=== PATIENT | female | born 1945 | race Caucasian/White ===

== ENCOUNTER 2018-01-17 20:20 | Emergency (ER) | payer MEDICARE ==
[~2018-01-17] VITALS: Ht 152.4 cm; Wt 51.7 kg
[2018-01-17 21:20] LABS: BASO % 1 % (0-3); EOS % 0 % (0-3); HEMATOCRIT 33.1 % (36.0-47.0); HEMOGLOBIN 11.2 g/dL (12.0-15.5); LYMPH # 1.4 x10^3/uL (1.0-4.8); LYMPH % 13 % (24-48); MEAN CORPUSCULAR HEMOGLOBIN 31 pg (25-35); MEAN CORPUSCULAR HGB CONC 34 g/dL (31-37); MEAN CORPUSCULAR VOLUME 90 fL (79-100); MONO # 1.2 x10^3/uL (0.0-1.1); MONO % 12 % (0-9); NEUT # 7.5 x10^3uL (1.8-7.7); NEUT % 74 % (31-73); PLATELET COUNT 413 x10^3/uL (140-400); RED BLOOD COUNT 3.66 x10^6/uL (3.50-5.40); RED CELL DISTRIBUTION WIDTH 17.2 % (11.5-14.5); WHITE BLOOD COUNT 10.1 x10^3/uL (4.0-11.0)
[2018-01-17 21:39] LABS: ALBUMIN 2.3 g/dL (3.4-5.0); ALBUMIN/GLOBULIN RATIO 0.5 (1.0-1.7); CREATININE 1.8 mg/dL (0.6-1.0); GFR 27.7; TOTAL BILIRUBIN 0.2 mg/dL (0.2-1.0); TOTAL PROTEIN 7.2 g/dL (6.4-8.2)
[2018-01-17 21:40] LABS: POTASSIUM 2.8 mmol/L (3.5-5.1)
[2018-01-17 21:44] LABS: BILIRUBIN,URINE NEG (NEG); CLARITY,URINE HAZY; COLOR,URINE STRAW; GLUCOSE,URINE NEG (NEG)
[2018-01-17 21:45] LABS: BACTERIA,URINE FEW /HPF (0-FEW); NITRITE,URINE NEG (NEG); SQUAMOUS EPITHELIAL CELL,UR MANY /LPF; UROBILINOGEN,URINE 0.2 mg/dL (0.2 mg/dL)
[2018-01-17 21:46] LABS: YEAST,URINE PRESENT /HPF
[2018-01-17] MEDS ORDERED: POTASSIUM BICARB 25 MEQ EFFERVESCENT TAB. PO ONE (22:00)
--- NOTE | 2018-01-17 22:16 | ED.ADGEN ---
Adult General Chief Complaint Chief Complaint Generalized weakness, syncope HPI HPI Patient is a 72-year-old female with CAD, CABG, remote stroke and recent hospitalization at [facility] for trauma and construction of left humerus and elbow who presents with generalized and syncope at home. Patient's daughter noted that the patient appeared to be weak and required assistance to stand. Patient was helping the patient standing when patient became limp and briefly unresponsive for less than a minute. No seizure he was witnessed. Patient denies chest pain palpitations shortness of breath preceding weakness and syncopal event. Patient GCS of 15 on EMS arrival. Noted to be hypotensive. IV fluids given. Patient remains weak and fatigued on ED arrival. Reports nauseated and mildly dyspneic. Reports continued post sx left arm pain. No fever chills or sweats. No urinary frequency or urgency. No diarrhea or urinary frequency. Compliant with medications. Patient's orthopaedic surgeon is Dr. Nina. [] Review of Systems Review of Systems ROS as per HPI. All other systems were reviewed and found to be within normal limits, except as documented in this note. Current Medications Current Medications Current Medications Medications (Trade) Dose Ordered Sig/Harish Start Time Stop Time Status Last Admin Dose Admin Potassium Bicarbonate (Klyte/Cl) 50 meq 1X ONCE 01/17/18 22:00 01/17/18 22:01 DC Allergies Allergies Allergies Coded Allergies Type Severity Reaction Last Updated Verified codeine Allergy Unknown 01/17/18 Yes Physical Exam Physical Exam Constitutional: Well developed, generally weak and fatigued appearing. [] HENT: Normocephalic, atraumatic, bilateral external ears normal, oropharynx moist, no oral exudates, nose normal. [] Eyes: PERRL, EOMI. [] Neck: Normal range of motion. [] Cardiovascular:Heart rate regular rhythm, no murmur [] Lungs & Thorax: Bradycardia, bilateral breath sounds clear to auscultation. [] Abdomen: Bowel sounds normal, soft, no tenderness. [] Skin: Old bruising to left torso and legs. [] Back: No CVA tenderness. [] Extremities: Splint and bandage to left upper extremity and dependent edema. [] Neurologic: Alert and oriented X 3, no gross motor deficits. [] Psychologic: Affect flat. [] Current Patient Data Vital Signs Vital Signs Date Time Temp Pulse Resp B/P (MAP) Pulse Ox O2 Delivery O2 Flow Rate FiO2 01/17/18 20:20 97.5 56 18 98 Room Air Lab Results Laboratory Tests Test 01/17/18 20:42 01/17/18 20:58 Urine Collection Type U cath Urine Color Straw Urine Clarity Hazy Urine pH 5.5 Urine Specific [place] 1.025 Urine Protein >100 mg/dl (NEG-TRACE) Urine Glucose (UA) Neg mg/dL (NEG) Urine Ketones (Stick) Trace mg/dL (NEG) Urine Blood Trace (NEG) Urine Nitrite Neg (NEG) Urine Bilirubin Neg (NEG) Urine Urobilinogen Dipstick 0.2 mg/dL (0.2 mg/dL) Urine Leukocyte Esterase Small (NEG) Urine RBC 6-10 /HPF (0-2) Urine WBC 11-20 /HPF (0-4) Urine Squamous Epithelial Cells Many /LPF Urine Bacteria Few /HPF (0-FEW) Urine Mucus Slight /LPF Urine Yeast Present /HPF White Blood Count 10.1 x10^3/uL (4.0-11.0) Red Blood Count 3.66 x10^6/uL (3.50-5.40) Hemoglobin 11.2 g/dL (12.0-15.5) L Hematocrit 33.1 % (36.0-47.0) L Mean Corpuscular Volume 90 fL (79-100) Mean Corpuscular Hemoglobin 31 pg (25-35) Mean Corpuscular Hemoglobin Concent 34 g/dL (31-37) Red Cell Distribution Width 17.2 % (11.5-14.5) H Platelet Count 413 x10^3/uL (140-400) H Neutrophils (%) (Auto) 74 % (31-73) H Lymphocytes (%) (Auto) 13 % (24-48) L Monocytes (%) (Auto) 12 % (0-9) H Eosinophils (%) (Auto) 0 % (0-3) Basophils (%) (Auto) 1 % (0-3) Neutrophils # (Auto) 7.5 x10^3uL (1.8-7.7) Lymphocytes # (Auto) 1.4 x10^3/uL (1.0-4.8) Monocytes # (Auto) 1.2 x10^3/uL (0.0-1.1) H Eosinophils # (Auto) 0.0 x10^3/uL (0.0-0.7) Basophils # (Auto) 0.0 x10^3/uL (0.0-0.2) Sodium Level 133 mmol/L (136-145) L Potassium Level 2.8 mmol/L (3.5-5.1) *L Chloride Level 91 mmol/L (98-107) L Carbon Dioxide Level 31 mmol/L (21-32) Anion Gap 11 (6-14) Blood Urea Nitrogen 30 mg/dL (7-20) H Creatinine 1.8 mg/dL (0.6-1.0) H Estimated GFR (Cockcroft-Gault) 27.7 BUN/Creatinine Ratio 17 (6-20) Glucose Level 135 mg/dL (70-99) H Lactic Acid Level 2.2 mmol/L (0.4-2.0) H Calcium Level 9.0 mg/dL (8.5-10.1) Total Bilirubin 0.2 mg/dL (0.2-1.0) Aspartate Amino Transferase (AST) 52 U/L (15-37) H Alanine Aminotransferase (ALT) 44 U/L (14-59) Alkaline Phosphatase 79 U/L (46-116) Troponin I Quantitative 0.036 ng/mL (0-0.055) GL-Mwh-V-Type Natriuretic Peptide 95614 pg/mL (0-124) H Total Protein 7.2 g/dL (6.4-8.2) Albumin 2.3 g/dL (3.4-5.0) L Albumin/Globulin Ratio 0.5 (1.0-1.7) L Phenytoin (Dilantin) Level 5.0 mcg/mL (10.0-20.0) L Phenytoin Last Dose Date 01/17/18 Phenytoin Last Dose Time 1111 EKG EKG [EKG: Sinus bradycardia, abnormal repolarization LVH pattern, abnormal T wave pattern. QTC 469.] Radiology/Procedures Radiology/Procedures [CXR: no discrete pulmonary edema.] Course & Med Decision Making Course & Med Decision Making Pertinent Labs and Imaging studies reviewed. (See chart for details) [Patient with generalized weakness and witnessed syncopal episode prior to hospital arrival. Reported to be hypotensive per EMS. Patient given fluid bolus and normotensive in the emergency department. Patient afebrile with stable blood pressure throughout ED stay. Sinus bradycardia with findings of LVH with abnormal T wave pattern on EKG. No arrhythmias noted on monitor. Labs, imaging reviewed. Patient's potassium is 2.8. By mouth potassium given. Patient also noted to have elevated BNP with p pulmonary vascular congestion on chest x-ray. Patient appears mildly dyspneic but does not require use of oxygen. Denies chest pain, troponin is negative. Patient has history of CAD but has not had cardiac evaluation or echocardiogram in a number of years per her report. Lactic acid noted be elevated, etiology unclear. Patient does normal white blood cell count and does not appear to be septic. However, she is at risk of infection. Lactic acid related to a potential prior to ED arrival. Gentle fluid bolus given, but more aggressive fluids no given due to concern of worsening CHF. Lactic acid to be repeated during admission. Given patient's recent trauma status and hospitalization at [facility], the patient agrees to transfer to that facility. Potential Abx to discussed with receiving facility. Patient accepted at 22:30 per [facility] hospitalist with Dr. Chloe Garcia as accepting MD. ] Final Impression Final Impression [1. Syncope 2. Generalized Weakness 3. Hypokalemia 3. Pulmonary vascular congestion 4. Status post left humerus reconstruction] Problems: Dragon Disclaimer Dragon Disclaimer This electronic medical record was generated, in whole or in part, using a voice recognition dictation system. SHON HOPSON DO Jan 17, 2018 22:16
[2018-01-17] MEDS ORDERED: POTASSIUM CL 40MEQ IN 0.9%NACL 1,000 ML IV ONE (22:45)
--- NOTE | 2018-01-17 22:46 | EKG ---
[address] [address] Test Date: 2018-01-17 Test Time: 21:59:32 Pat Name: CHARLIE LINARES Department: Room: Gender: F Cath Lab Radiology Technician: NATHAN : 1945 Requested By: SHON HOPSON Order Number: [id number] Reading MD: Adarsh Robertson MD Measurements Intervals [place] Rate: 55 P: -59 NE: 178 QRS: 10 QRSD: 94 T: -92 QT: 488 QTc: 469 Interpretive Statements SR LVH WITH REPOLARIZATION ABNORMALITY Electronically Signed On 01-20-2018 14:14:05 CDT by Adarsh Robertson MD
[2018-01-17 23:46] VITALS: BP 137/51
--- NOTE | 2018-01-18 08:09 | RAD ---
Portable chest, 01/17/2018: History: Cough, congestion Comparison is made to a study from 10/27/2008. There has been a previous median sternotomy. The heart size and pulmonary vascularity are normal. There is calcific plaquing of the aorta. There is a minimal vague opacity projected over lateral aspect of the left upper lobe. There is mild linear scarring or atelectasis in the right lateral costophrenic angle. There is no evidence of pleural fluid. The bony structures are demineralized. There is a surgical plate and screws transfixing a proximal left humeral fracture. An additional surgical plate and screws is incompletely visualized in the distal left humerus. IMPRESSION: Minimal left upper lobe opacity which may represent scarring or focal infiltrate. Radiographic follow-up is suggested
== END 2018-01-17 23:58 | disposition short-term general hospital (02) ==
LOC: ER 20:20
DX: R55 Syncope and collapse (principal); R53.1 Weakness; E87.6 Hypokalemia; R09.89 Other specified symptoms and signs involving the circulatory and respiratory systems; I25.10 Atherosclerotic heart disease of native coronary artery without angina pectoris; Z95.1 Presence of aortocoronary bypass graft; Z86.73 Personal history of transient ischemic attack (TIA), and cerebral infarction without residual deficits; Z88.5 Allergy status to narcotic agent
CPT/HCPCS: 36415; 71045; 80053; 80185; 81001; 83605; 83880; 84443; 84484; 85025; 87040; 87086; 93005; 96365; 99285-25

== ENCOUNTER 2018-02-04 13:43 | Emergency (ER) | payer MEDICARE ==
[~2018-02-04] VITALS: Ht 60 cm; Wt 49.9 kg
[2018-02-04 14:15] LABS: BASO # 0.1 x10^3/uL (0.0-0.2); BASO % 1 % (0-3); EOS # 0.1 x10^3/uL (0.0-0.7); EOS % 1 % (0-3); HEMATOCRIT 35.8 % (36.0-47.0); HEMOGLOBIN 12.2 g/dL (12.0-15.5); LYMPH # 1.5 x10^3/uL (1.0-4.8); LYMPH % 23 % (24-48); MEAN CORPUSCULAR HEMOGLOBIN 30 pg (25-35); MEAN CORPUSCULAR HGB CONC 34 g/dL (31-37); MEAN CORPUSCULAR VOLUME 89 fL (79-100); MONO # 0.5 x10^3/uL (0.0-1.1); MONO % 8 % (0-9); NEUT # 4.4 x10^3uL (1.8-7.7); NEUT % 67 % (31-73); PLATELET COUNT 372 x10^3/uL (140-400); RED BLOOD COUNT 4.03 x10^6/uL (3.50-5.40); RED CELL DISTRIBUTION WIDTH 19.2 % (11.5-14.5); WHITE BLOOD COUNT 6.5 x10^3/uL (4.0-11.0)
[2018-02-04] MEDS ORDERED: IV NORMAL SALINE 1,000ML 1,000 ML IV ONE (14:15)
[2018-02-04 14:34] LABS: CALCIUM 8.6 mg/dL (8.5-10.1); CREATININE 1.9 mg/dL (0.6-1.0)
[2018-02-04 14:35] LABS: POTASSIUM 2.8 mmol/L (3.5-5.1)
--- NOTE | 2018-02-04 15:03 | EKG ---
[address] [address] Test Date: 2018-02-04 Test Time: 13:47:39 Pat Name: CHARLIE LINARES Department: Room: Gender: F C Java Developer: LAURA : 1945 Requested By: REENA SHELTON Order Number: [id number] Reading MD: Measurements Intervals [place] Rate: 58 P: -50 [place]: 172 QRS: 4 QRSD: 92 T: 160 QT: 512 QTc: 507 Interpretive Statements SINUS RHYTHM LVH WITH REPOLARIZATION ABNORMALITY PROLONGED QT ABNORMAL ECG RI6.01 No previous ECG available for comparison
[2018-02-04] MEDS ORDERED: POTASSIUM CHLORIDE 20 MEQ TABLET.ER. PO ONE ×2 (15:05→15:30)
[2018-02-04 15:16] VITALS: BP 181/74
--- NOTE | 2018-02-04 15:25 | EKG ---
[address] [address] Test Date: 2018-02-04 Test Time: 15:20:54 Pat Name: CHARLIE LINARES Department: Room: Gender: F Outreach Coordinator: LAURA : 1945 Requested By: REENA SHELTON Order Number: [id number] Reading MD: Measurements Intervals [place] Rate: 58 P: [place]: QRS: 6 QRSD: 92 T: 177 QT: 450 QTc: 446 Interpretive Statements IRREGULAR RHYTHM, NO P-WAVE FOUND LVH WITH REPOLARIZATION ABNORMALITY ABNORMAL ECG RI6.01 Compared to ECG 01/17/2018 21:59:32 No significant changes
[2018-02-04] MEDS ORDERED: POTA10TA10 PO (15:31)
--- NOTE | 2018-02-04 15:31 | PHYS DOC ---
Past History Past Medical History: Anemia, High Cholesterol, [place], Seizure, Stroke Past Surgical History: Coronary Bypass Surgery Alcohol Use: None Drug Use: None Adult General Chief Complaint Chief Complaint: HYPOTENSION HPI HPI Patient is a 72 year old F who presents with an episode of low blood pressure just prior to arrival. Bertha is accompanied by her who was present during this episode. He states that her blood pressure was in the 90s over 60s. At that time she was extremely pale nauseous and dizzy. She denied pain. She currently has no symptoms. Review of Systems Review of Systems Constitutional: Denies fever or chills [] Eyes: Denies change in visual acuity, redness, or eye pain [] HENT: Denies nasal congestion or sore throat [] Respiratory: Denies cough or shortness of breath [] Cardiovascular: No additional information not addressed in HPI [] GI: Denies abdominal pain, nausea, vomiting, bloody stools or diarrhea [] : Denies dysuria or hematuria [] Musculoskeletal: Denies back pain or joint pain [] Integument: Denies rash or skin lesions [] Neurologic: Denies headache, focal weakness or sensory changes [] Endocrine: Denies polyuria or polydipsia [] All other systems were reviewed and found to be within normal limits, except as documented in this note. Family History Family History No pertinent family medical history was reported Current Medications Current Medications Current Medications Medications (Trade) Dose Ordered Sig/Harish Start Time Stop Time Status Last Admin Dose Admin Potassium Chloride (Klor-Con) 40 meq 1X ONCE 02/04/18 15:30 02/04/18 15:31 02/04/18 15:15 40 MEQ Sodium Chloride 1,000 ml @ 1,000 mls/hr 1X ONCE 02/04/18 14:15 02/04/18 15:14 DC 02/04/18 15:08 1,000 MLS/HR Allergies Allergies Allergies Coded Allergies Type Severity Reaction Last Updated Verified codeine Allergy Unknown 01/17/18 Yes Physical Exam Physical Exam Constitutional: Well developed, well nourished, no acute distress, non-toxic appearance. [] HENT: Normocephalic, atraumatic, Eyes: EOMI, conjunctiva normal, no discharge. [] Neck: Normal range of motion, no tenderness, supple, no stridor. [] Cardiovascular:Heart rate regular rhythm, Lungs & Thorax: Bilateral breath sounds clear to auscultation [] Abdomen: Bowel sounds normal, soft, no tenderness, no masses, no pulsatile masses. [] Skin: Warm, dry, no erythema, no rash. [] Back: No tenderness, no CVA tenderness. [] Extremities: No tenderness, no cyanosis, no clubbing, ROM intact, no edema. [] Neurologic: Alert and oriented X 3, normal motor function, normal sensory function, no focal deficits noted. [] Psychologic: Affect normal, judgement normal, mood normal. [] Current Patient Data Vital Signs Vital Signs Date Time Temp Pulse Resp B/P (MAP) Pulse Ox O2 Delivery O2 Flow Rate FiO2 02/04/18 14:51 97.9 68 20 98 Room Air Lab Results Laboratory Tests Test 02/04/18 13:55 White Blood Count 6.5 x10^3/uL (4.0-11.0) Red Blood Count 4.03 x10^6/uL (3.50-5.40) Hemoglobin 12.2 g/dL (12.0-15.5) Hematocrit 35.8 % (36.0-47.0) L Mean Corpuscular Volume 89 fL (79-100) Mean Corpuscular Hemoglobin 30 pg (25-35) Mean Corpuscular Hemoglobin Concent 34 g/dL (31-37) Red Cell Distribution Width 19.2 % (11.5-14.5) H Platelet Count 372 x10^3/uL (140-400) Neutrophils (%) (Auto) 67 % (31-73) Lymphocytes (%) (Auto) 23 % (24-48) L Monocytes (%) (Auto) 8 % (0-9) Eosinophils (%) (Auto) 1 % (0-3) Basophils (%) (Auto) 1 % (0-3) Neutrophils # (Auto) 4.4 x10^3uL (1.8-7.7) Lymphocytes # (Auto) 1.5 x10^3/uL (1.0-4.8) Monocytes # (Auto) 0.5 x10^3/uL (0.0-1.1) Eosinophils # (Auto) 0.1 x10^3/uL (0.0-0.7) Basophils # (Auto) 0.1 x10^3/uL (0.0-0.2) Sodium Level 132 mmol/L (136-145) L Potassium Level 2.8 mmol/L (3.5-5.1) *L Chloride Level 95 mmol/L (98-107) L Carbon Dioxide Level 31 mmol/L (21-32) Anion Gap 6 (6-14) Blood Urea Nitrogen 27 mg/dL (7-20) H Creatinine 1.9 mg/dL (0.6-1.0) H Estimated GFR (Cockcroft-Gault) 26.0 Glucose Level 153 mg/dL (70-99) H Calcium Level 8.6 mg/dL (8.5-10.1) Creatine Kinase 54 U/L (26-192) Creatine Kinase MB (Mass) 0.8 ng/mL (0.0-3.6) Creatine Kinase MB Relative Index 1.5 % (0-4) Troponin I Quantitative 0.027 ng/mL (0-0.055) EKG EKG No interval change noted Radiology/Procedures Radiology/Procedures [] Course & Med Decision Making Course & Med Decision Making Pertinent Labs and Imaging studies reviewed. (See chart for details) She was given oral potassium prior to discharge. Bertha and her were counseled on the risk of or permanent disability associated with her current medical condition. Hospital admission for further management was recommended and declined. Instead they decided to pursue watchful management and plan to return to the emergency room if she develops new or worsening symptoms. Dragon Disclaimer Dragon Disclaimer This electronic medical record was generated, in whole or in part, using a voice recognition dictation system. Departure Departure: Impression: Primary Impression: Hypokalemia Disposition: 01 HOME, SELF-CARE Condition: STABLE Referrals: MELVINA LOPEZ MD (PCP) Patient Instructions: Hypokalemia Additional Instructions: Bertha was seen in the emergency department for low blood pressure. She was found to have low potassium for which she was given supplementation in the emergency room and a prescription for supplementation. Admission was declined at this time. She was encouraged to return to the emergency room if she develops new or worsening symptoms. She was also encouraged follow-up with her primary care doctor in the next 3-5 days for repeat labs and further evaluation of her potassium. Scripts Potassium Chloride (POTASSIUM CHLORIDE) 10 Meq Tablet.er 10 MEQ PO DAILY for 7 Days, #7 TAB Prov: REENA SHELTON MD 02/04/18 REENA SHELTON MD Feb 04, 2018 15:31
== END 2018-02-04 15:45 | disposition home or self-care (01) ==
LOC: ER 13:43
DX: E87.6 Hypokalemia (principal); E78.00 Pure hypercholesterolemia, unspecified; I25.2 Old myocardial infarction; Z86.2 Personal history of diseases of the blood and blood-forming organs and certain disorders involving the immune mechanism; Z86.73 Personal history of transient ischemic attack (TIA), and cerebral infarction without residual deficits; Z95.1 Presence of aortocoronary bypass graft; Z88.5 Allergy status to narcotic agent
CPT/HCPCS: 36415; 80048; 82553; 84484; 85025; 93005; 99285-25; J7030

== ENCOUNTER 2018-03-31 11:35 | Inpatient (IN) | payer MEDICARE ==
[~2018-03-31] VITALS: Ht 152.4 cm; Wt 47.2 kg
[~2018-03-31 11:35] MED LIST: POTA10TA10 PO
--- NOTE | 2018-03-31 12:05 | PHYS DOC ---
Past History Past Medical History: Anemia, High Cholesterol, [place], Seizure, Stroke Past Surgical History: Coronary Bypass Surgery Alcohol Use: None Drug Use: None Adult General Chief Complaint Chief Complaint: HYPERTENSION HPI HPI Patient is a pleasant 72-year-old female who presents with son-in-law and for evaluation of hypertension which is uncontrolled. The patient has a history of CABG, stroke, seizure disorder, recent surgeries to the upper extremities secondary to a fall, and recent difficulty controlling her blood pressure. She has been admitted several times to [facility] recently. For about 20 years the patient took atenolol for her blood pressure but recently it was causing her blood pressure to be too low so 2 days ago she was changed to amlodipine and since that time her blood pressures have been very elevated. Upon arrival her blood pressure is 243/127. The patient is alert and oriented 4, calm, and appears to be in no distress. She has absolutely no complaints this time. However, earlier today when the patient was getting physical therapy she told her son-in-law that she was not feeling well. She denies this currently. For me she specifically denies headache, vision changes, neck pain, chest pain or shortness of breath, back pain, abdominal pain, focal weakness or numbness, fevers or chills, nausea or vomiting. Per family she has been having some diarrhea recently. She currently takes Eliquis. Her speech is somewhat slow and abnormal with occasional stuttering which is normal and at baseline per family. Review of Systems Review of Systems Constitutional: Denies fever or chills [] Eyes: Denies change in visual acuity, redness, or eye pain [] HENT: Denies nasal congestion or sore throat [] Respiratory: Denies cough or shortness of breath [] Cardiovascular: No additional information not addressed in HPI [] GI: Denies abdominal pain, nausea, vomiting, bloody stools [] occasional diarrhea : Denies dysuria or hematuria [] Musculoskeletal: Denies back pain or joint pain [] Integument: Denies rash or skin lesions [] Neurologic: Denies headache, focal weakness or sensory changes [] Endocrine: Denies polyuria or polydipsia [] All other systems were reviewed and found to be within normal limits, except as documented in this note. Allergies Allergies Allergies Coded Allergies Type Severity Reaction Last Updated Verified codeine Allergy Unknown 01/17/18 Yes Physical Exam Physical Exam Constitutional: Well developed, well nourished, no acute distress, non-toxic appearance. [] calm, appers comfortable HENT: Normocephalic, atraumatic, bilateral external ears normal, oropharynx moist, no oral exudates, nose normal. [] Eyes: PERRLA, EOMI, conjunctiva normal, no discharge. [] Neck: Normal range of motion, no tenderness, supple, no stridor. [] Cardiovascular:Heart rate regular rhythm, no murmur [] Lungs & Thorax: Bilateral breath sounds clear to auscultation [] Abdomen: Bowel sounds normal, soft, no tenderness, no masses, no pulsatile masses. [] Skin: Warm, dry, no erythema, no rash. [] Back: No tenderness, no CVA tenderness. [] Extremities: No tenderness, no cyanosis, no clubbing, ROM intact, no edema. [] Neurologic: Alert and oriented X 3, normal motor function, normal sensory function, no focal deficits noted. [] speech slow with some stuttering ( baseline per family) Psychologic: Affect normal, judgement normal, mood normal. [] Current Patient Data Vital Signs Vital Signs Date Time Temp Pulse Resp B/P (MAP) Pulse Ox O2 Delivery O2 Flow Rate FiO2 03/31/18 11:54 87 18 254/127 (233) 97 Room Air EKG EKG Normal sinus rhythm, rate of 84, normal axis, no acute ischemic findings, no STEMI, reviewed and interpreted by myself Radiology/Procedures Radiology/Procedures [address] [address] IMAGING REPORT Signed PATIENT: CHARLIE LINARES ACCOUNT: [id number] : 1945 LOCATION: ER AGE: 72 SEX: F EXAM STATUS: REG ER ORD. PHYSICIAN: BISHOP LANE DO REASON: dizzy, hypertensive urgency, on Eliquis PROCEDURE: CT HEAD WO CONTRAST CT HEAD INDICATION: HYPERTENSION, dizziness COMPARISON: None Available. TECHNIQUE: 5 mm contiguous axial images were obtained from the skull base to the vertex Exposure: One or more of the following individualized dose reduction techniques were utilized for this examination: 1. Automated exposure control 2. Adjustment of the mA and/or kV according to patient size 3. Use of iterative reconstruction technique FINDINGS: Large area of hypodensity identified in the left frontal region likely encephalomalacia from old infarct No evidence of acute intracranial hemorrhage. No extra-axial fluid collections. No mass effect or midline shift. Ventricular size is appropriate. Basal cisterns are patent. No fractures identified.Christopher-white differentiation is preserved.Globes and orbits are within normal limits. Paranasal sinuses and mastoid air cells are clear. IMPRESSION: Large area of hypodensity identified in the left frontal lobe likely encephalomalacia from old infarct. Otherwise no acute intracranial findings. Electronically signed by: Surya Ferguson MD (03/31/2018 12:16 PM) [id number] DICTATED AND SIGNED BY: SURYA FERGUSON MD DATE: 03/31/18 1213 CC: BISHOP LANE DO; CRISTOBAL MARTINEZ MD ~ [place] [address] IMAGING REPORT Signed PATIENT: CHARLIE ILNARES ACCOUNT: [id number] : 1945 LOCATION: ER AGE: 72 SEX: F EXAM STATUS: REG ER ORD. PHYSICIAN: BISHOP LANE DO REASON: severe hypertension PROCEDURE: PORTABLE CHEST 1V EXAM: CHEST 1 VIEW History: Hypertension, chest COMPARISON: 01/17/2018 TECHNIQUE: Single portable radiograph of the chest FINDINGS: The cardiac silhouette is unremarkable. Calcified granuloma identified in the left upper lobe of the lung. The costophrenic sulci are clear and well demarcated. A heart monitor projects over the left chest region. IMPRESSION: No radiographic evidence of an acute cardiopulmonary process. Electronically signed by: Surya Ferguson MD (03/31/2018 12:13 PM) [id number] DICTATED AND SIGNED BY: SURYA FERGUSON MD DATE: 03/31/18 1209 CC: BISHOP LANE DO; CRISTOBAL MARTINEZ MD ~ Course & Med Decision Making Course & Med Decision Making Pertinent Labs and Imaging studies reviewed. (See chart for details) @1315 - Patient and family updated on lab and imaging results. She does have an elevated BNP which is likely secondary to uncontrolled hypertension. Additionally she has some renal insufficiency and hypokalemia. I see no reason to transfer this patient to another hospital at this time as we should be able to provide care for her here. Family is okay with the plan to admit the patient here to [facility]. Discussed the case with the hospitalist, Dr. Torres, and he agrees and accepts the patient to a full telemetry admission. Dragon Disclaimer Dragon Disclaimer This electronic medical record was generated, in whole or in part, using a voice recognition dictation system. Departure Departure: Impression: Primary Impression: Elevated brain natriuretic peptide (BNP) level Additional Impressions: Hypertensive urgency Hypokalemia Disposition: ADMITTED INPATIENT Admitting Physician: Ciaran Torres Condition: STABLE Referrals: CRISTOBAL MARTINEZ MD (PCP) Problem Qualifiers BISHOP LANE DO Mar 31, 2018 12:05
[2018-03-31 12:13] LABS: BASO % 0 % (0-3); EOS % 1 % (0-3); HEMATOCRIT 41.6 % (36.0-47.0); HEMOGLOBIN 14.4 g/dL (12.0-15.5); LYMPH % 17 % (24-48); MEAN CORPUSCULAR HEMOGLOBIN 31 pg (25-35); MEAN CORPUSCULAR HGB CONC 35 g/dL (31-37); MEAN CORPUSCULAR VOLUME 89 fL (79-100); MONO # 0.8 x10^3/uL (0.0-1.1); MONO % 13 % (0-9); NEUT # 4.2 x10^3uL (1.8-7.7); NEUT % 70 % (31-73); PLATELET COUNT 331 x10^3/uL (140-400); RED BLOOD COUNT 4.68 x10^6/uL (3.50-5.40); RED CELL DISTRIBUTION WIDTH 16.1 % (11.5-14.5)
--- NOTE | 2018-03-31 12:17 | RAD ---
EXAM: CHEST 1 VIEW History: Hypertension, chest COMPARISON: 01/17/2018 TECHNIQUE: Single portable radiograph of the chest FINDINGS: The cardiac silhouette is unremarkable. Calcified granuloma identified in the left upper lobe of the lung. The costophrenic sulci are clear and well demarcated. A heart monitor projects over the left chest region. IMPRESSION: No radiographic evidence of an acute cardiopulmonary process. Electronically signed by: Surya Ferguson MD (03/31/2018 12:13 PM) [id number]
--- NOTE | 2018-03-31 12:20 | RAD ---
CT HEAD INDICATION: HYPERTENSION, dizziness COMPARISON: None Available. TECHNIQUE: 5 mm contiguous axial images were obtained from the skull base to the vertex Exposure: One or more of the following individualized dose reduction techniques were utilized for this examination: 1. Automated exposure control 2. Adjustment of the mA and/or kV according to patient size 3. Use of iterative reconstruction technique FINDINGS: Large area of hypodensity identified in the left frontal region likely encephalomalacia from old infarct No evidence of acute intracranial hemorrhage. No extra-axial fluid collections. No mass effect or midline shift. Ventricular size is appropriate. Basal cisterns are patent. No fractures identified.Christopher-white differentiation is preserved.Globes and orbits are within normal limits. Paranasal sinuses and mastoid air cells are clear. IMPRESSION: Large area of hypodensity identified in the left frontal lobe likely encephalomalacia from old infarct. Otherwise no acute intracranial findings. Electronically signed by: Surya Ferguson MD (03/31/2018 12:16 PM) [id number]
[2018-03-31 12:22] LABS: PHENY 13.3 mcg/mL (10.0-20.0)
[2018-03-31] MEDS ORDERED: LABETALOL 20 MG/4 ML DISP.SYRIN. IVP ONE (12:30)
[2018-03-31 12:34] LABS: ALBUMIN 2.9 g/dL (3.4-5.0); ALBUMIN/GLOBULIN RATIO 0.5 (1.0-1.7); CALCIUM 9.4 mg/dL (8.5-10.1); CREATININE 1.5 mg/dL (0.6-1.0); GFR 34.1; POTASSIUM 3.3 mmol/L (3.5-5.1); TOTAL BILIRUBIN 0.2 mg/dL (0.2-1.0); TOTAL PROTEIN 8.2 g/dL (6.4-8.2)
[2018-03-31] MEDS ORDERED: POTASSIUM CHLORIDE 20 MEQ TABLET.ER. PO ONE (13:30)
[2018-03-31] MEDS ORDERED: FUROSEMIDE 40 MG/4 ML VIAL IVP ONE (13:30)
[2018-03-31 13:49] LABS: BILIRUBIN,URINE NEG (NEG); CLARITY,URINE CLEAR; COLOR,URINE YELLOW; GLUCOSE,URINE NEG (NEG); NITRITE,URINE NEG (NEG); UROBILINOGEN,URINE 0.2 mg/dL (0.2 mg/dL)
[2018-03-31 13:50] LABS: BACTERIA,URINE FEW /HPF (0-FEW); GRANULAR CASTS,URINE OCC /HPF; HYALINE CASTS, URINE OCC /HPF; SQUAMOUS EPITHELIAL CELL,UR FEW /LPF
[2018-03-31 14:53] VITALS: BP 207/77
--- NOTE | 2018-03-31 15:28 | EKG ---
[address] [address] Test Date: 2018-03-31 Test Time: 12:12:28 Pat Name: CHARLIE LINARES Department: Room: 122 A Gender: F Cement Paver: : 1945 Requested By: BISHOP LANE Order Number: [id number] Reading MD: Adarsh Robertson MD Measurements Intervals [place] Rate: 84 P: -142 NM: 154 QRS: 170 QRSD: 92 T: 17 QT: 384 QTc: 457 Interpretive Statements SUPRAVENTRICULAR RHYTHM LVH WITH REPOLARIZATION ABNORMALITY LIMB LEAD REVERSAL CANNOT RULE OUT LATERAL ISCHEMIA Electronically Signed On 03-31-2018 17:12:45 CDT by Adarsh Robertson MD
[2018-03-31 15:44] VITALS: BP 145/97
--- NOTE | 2018-03-31 16:41 | HP ---
ADMIT DATE: 03/31/2018 NO DICTATION JAMILA WOOD MD DR: EVELIN/rj JOB#: [id number] / [id number]
--- NOTE | 2018-03-31 17:24 | HP ---
ADMIT DATE: 03/31/2018 HISTORY OF PRESENT ILLNESS: The patient is a 72-year-old female patient who was brought to the Emergency Room complaining that she is not feeling well. She apparently was on atenolol for about 20 years, but recently it was causing her blood pressure to be low and so about 2 days ago, her petroleum refinery laborer discontinued that and her primary care physician started her on amlodipine 5 mg once a day. Since that time, her blood pressure has been very elevated. In fact, when she arrived to the Emergency Room, her blood pressure was 243/127. However, she was alert, oriented x 4, calm and appears to be in no distress and she has absolutely no complaint. However, early today when the patient was getting physical therapy, she told her son-in-law that she was not feeling well. She denied this currently. She has some form of aphasia secondary to previous stroke, but denied any other complaint and was admitted for hypertensive urgency as well as hypokalemia. PAST MEDICAL HISTORY: Significant for hypertension, hyperlipidemia, coronary artery disease status post CABG x 3 in 1993. She is known to have chronic kidney disease and hypothyroidism. She has left middle cerebral artery territory infarct with right-sided hemiplegia. Her left carotid artery is totally occluded. She underwent right carotid endarterectomy with resultant left-sided vision loss. She has seizure disorder. PAST SURGICAL HISTORY: Significant for right carotid endarterectomy, coronary artery bypass graft surgery, parathyroidectomy, total abdominal hysterectomy, and bilateral salpingo-oophorectomy, esophagogastroduodenoscopy, colonoscopy, left shoulder surgery, and left elbow surgery. ALLERGIES: She is allergic to CODEINE. MEDICATIONS: She is currently on following medications: She is currently on 81 mg of aspirin once a day, atorvastatin 80 mg at bedtime, vitamin D 1000 International Unit once a day, fish oil 1000 mg once a day. She is also on 100 mcg of fludrocortisone once a day, levothyroxine 175 mcg once a day, multivitamin 1 tablet once a day, paroxetine for Paxil 20 mg once a day, phenytoin 100 mg she takes 3 times 3 capsules daily, potassium 20 mEq 3 times daily, metronidazole 500 mg 3 times a day, Eliquis 2.5 mg twice a day, 5 mg amlodipine once a day, and 40 mg omeprazole twice a day. She used to be on atenolol 25 mg once a day that was stopped recently. FAMILY HISTORY: One brother at the age of 70. She has 2 sisters younger and healthy. Her father at the age of 42 because of myocardial infarction. Mother from brain cancer at the age of 70. SOCIAL HISTORY: She is and has 1 daughter. She quit smoking on 12/20/2017. She does not drink alcohol. She used to work at the [employer]. REVIEW OF SYSTEMS: The patient denied any blurring of vision, cataract, glaucoma or macular degeneration. Denied any earache, tinnitus, or sensorineural deafness. Denied any nosebleeds, stuffy nose, or postnasal drip. Denied any sore throat, sore tongue, toothache, hoarseness of voice, or difficulty swallowing. She denied any nausea or vomiting. She did complain of diarrhea for the last 2 weeks, but denied any constipation. Denied any hematemesis, melena, or hematochezia. Denied any dysuria, frequency, or hematuria. Denied any chest pain, shortness of breath, orthopnea, paroxysmal nocturnal dyspnea. Denied any cough, phlegm, or hemoptysis. Denied any chills, rigors, or fever. Denied any dizziness, lightheadedness, or vertigo. PHYSICAL EXAMINATION: GENERAL: When I examined her this afternoon, she was resting slightly propped up in bed, in no apparent respiratory distress. No pallor, jaundice, or cyanosis. No lymphadenopathy, no thyromegaly, no jugular venous distension. No lower limb edema. VITAL SIGNS: On arrival to the Emergency Room, her blood pressure was 243/127. The patient did receive labetalol 20 mg IV once together with potassium and furosemide and by the time I saw her in the afternoon, her blood pressure was down to 145/97, heart rate was 83, temperature was 97.8, respiratory rate was 18, and oxygen saturation was 97% on room air. HEAD, EYES, EARS, NOSE, AND THROAT: Showed normocephalic, atraumatic. NECK: Supple. HEART: Showed normal first and second heart sounds with no gallop, rub, or murmur. CHEST: Clear to auscultation. No crepitation or rhonchi. ABDOMEN: Distended, soft, nontender. No guarding or rigidity. No organomegaly. Hernial orifice intact. Bowel sounds normal. NEUROLOGIC: She is awake, alert, responding appropriately. She does have nominal aphasia; however, she apparently is able to ambulate without assistance or assistive devices. LABORATORY DATA: Her lab work showed a white cell count of 6000, hemoglobin 14.4, hematocrit 41, MCV 89, and platelet count of 331,000. Her serum sodium was 137, potassium 3.3, chloride 99, bicarbonate 27, anion gap of 11, BUN 23, creatinine 1.5, estimated GFR was 34 mL per minute. Her glucose was 106, calcium was 9.4. Total bilirubin, AST, ALT, alkaline phosphatase were normal. Her first set of cardiac enzyme was less than 0.017. Her B-type natriuretic peptide was 4428. Total protein was 8.2, albumin was 2.9. Urinalysis showed the urine was yellow, clear with a pH of 7, specific gravity of 1.020. There was moderate amount of protein, negative for glucose, ketones, blood, nitrite, and leukocyte esterase. There were only 3-5 rbc's, 1-4 wbc's, very few bacteria. Her toxic screen showed the phenytoin to be 13.3 mcg/mL, which is well within therapeutic range of 10-20. Her chest x-ray showed the cardiac silhouette is unremarkable. Calcified granuloma identified in the left upper lobe of the lung. The costophrenic sulci are clear and well demarcated a clear heart monitor projects over the left chest region. CT scan of the head showed that the patient has large area of hyperdensity identified in the left frontal region, likely encephalomalacia from old infarct. No evidence of acute intracranial hemorrhage. No extraaxial fluid collection. No mass effect or midline shift. Ventricular size appropriate. Basilar cisterns are patent. No fracture identified. The johnson-white differentiation is preserved. Globes and orbits are within normal limits. Paranasal sinuses and mastoid air cells are clear. ASSESSMENT AND PLAN: So the patient came in with hypertensive urgency. I will reconcile all her medication. I will hold her fludrocortisone. I am not really sure why she is on that. She probably has some form of autonomic neuropathy, but I do not know whether we need to cut down the fludrocortisone perhaps to 50 mcg instead of 100 and we will reconcile all her medications. I will probably hold the fludrocortisone and consult the cardiology team from [facility]. The patient has already had 2 sets of cardiac enzymes that ruled out myocardial infarction. JAMILA WOOD MD DR: EVELIN/rj JOB#: [id number] / [id number]
[2018-03-31] MEDS ORDERED: FISH12002 PO (17:46)
[2018-03-31] MEDS ORDERED: ATOR80TA72 PO (17:46)
[2018-03-31] MEDS ORDERED: OMEP40CA5 PO (17:46)
[2018-03-31] MEDS ORDERED: AMLO5TAB2 PO (17:46)
[2018-03-31] MEDS ORDERED: PARO20TA3 PO (17:46)
[2018-03-31] MEDS ORDERED: METR500T8 PO (17:46)
[2018-03-31] MEDS ORDERED: FLUD0.1T PO (17:46)
[2018-03-31] MEDS ORDERED: LEVO175T5 PO (17:46)
[2018-03-31] MEDS ORDERED: CHOL100013 PO (17:46)
[2018-03-31] MEDS ORDERED: POTA20TA84 PO (17:46)
[2018-03-31] MEDS ORDERED: PHEN100C4 PO (17:46)
[2018-03-31] MEDS ORDERED: MULT-245 PO (17:46)
[2018-03-31] MEDS ORDERED: APIX5TAB3 PO (17:46)
[2018-03-31] MEDS ORDERED: ASPI-630 PO (17:46)
[2018-03-31 19:32] VITALS: BP 189/84
[2018-03-31] MEDS: POTASSIUM CHLORIDE 20 MEQ TABLET.ER. PO SCH (20:25)
[2018-03-31] MEDS: LACTOBACILLUS RHAMNOSUS GG 1 CAPSULE. PO SCH (20:25)
[2018-03-31] MEDS: ATORVASTATIN CALCIUM 20 MG TABLET PO SCH (20:25)
[2018-03-31] MEDS: metroNIDAZOLE 500 MG TABLET PO SCH (20:25)
[2018-03-31] MEDS: APIXABAN 2.5 MG TABLET PO SCH (20:25)
[2018-03-31 22:01] VITALS: BP 229/110
[2018-03-31] MEDS ORDERED: ACETAMINOPHEN 325 MG TABLET PO PRN (22:30)
[2018-03-31] MEDS ORDERED: amLODIPine BESYLATE 5 MG TABLET PO ONE (23:00)
[2018-03-31 23:45] VITALS: BP 240/103
[2018-04-01] VITALS (9 sets, daily range): BP systolic 171–228; BP diastolic 90–120
[2018-04-01] MEDS: PANTOPRAZOLE 40 MG TABLET. PO SCH (07:44)
[2018-04-01] MEDS: LEVOTHYROXINE 175 MCG TABLET PO SCH (07:44)
[2018-04-01 07:54] LABS: BASO % 0 % (0-3); EOS % 0 % (0-3); HEMATOCRIT 40.7 % (36.0-47.0); HEMOGLOBIN 14.3 g/dL (12.0-15.5); LYMPH # 0.8 x10^3/uL (1.0-4.8); LYMPH % 10 % (24-48); MEAN CORPUSCULAR HEMOGLOBIN 31 pg (25-35); MEAN CORPUSCULAR HGB CONC 35 g/dL (31-37); MEAN CORPUSCULAR VOLUME 87 fL (79-100); MONO # 0.7 x10^3/uL (0.0-1.1); MONO % 8 % (0-9); NEUT # 6.4 x10^3uL (1.8-7.7); NEUT % 81 % (31-73); PLATELET COUNT 333 x10^3/uL (140-400); RED BLOOD COUNT 4.67 x10^6/uL (3.50-5.40); RED CELL DISTRIBUTION WIDTH 16.6 % (11.5-14.5); WHITE BLOOD COUNT 7.9 x10^3/uL (4.0-11.0)
[2018-04-01 08:06] LABS: ALBUMIN 2.6 g/dL (3.4-5.0); ALBUMIN/GLOBULIN RATIO 0.5 (1.0-1.7); CALCIUM 9.4 mg/dL (8.5-10.1); CREATININE 1.5 mg/dL (0.6-1.0); GFR 34.1; TOTAL BILIRUBIN 0.2 mg/dL (0.2-1.0); TOTAL PROTEIN 7.7 g/dL (6.4-8.2)
[2018-04-01 08:13] LABS: POTASSIUM 2.9 mmol/L (3.5-5.1)
[2018-04-01] MEDS ORDERED: cloNIDine HCL 0.1 MG TABLET PO ONE (08:30)
[2018-04-01] MEDS: CHOLECALCIFEROL (VITAMIN D3) 1,000 UNIT TABLET PO SCH (08:43)
[2018-04-01] MEDS: OMEGA-3 FATTY ACIDS/FISH OIL 1,000 MG CAPSULE. PO SCH (08:43)
[2018-04-01] MEDS: PARoxetine 20 MG TABLET PO SCH (08:44)
[2018-04-01] MEDS: ASPIRIN 81 MG TAB.CHEW PO SCH (08:44)
[2018-04-01] MEDS: POTASSIUM CHLORIDE 20 MEQ TABLET.ER. PO SCH ×4 (08:44→22:33)
[2018-04-01] MEDS: MULTIVITAMIN with MINERAL TABLET. PO SCH (08:44)
[2018-04-01] MEDS: APIXABAN 2.5 MG TABLET PO SCH ×3 (08:44→22:53)
[2018-04-01] MEDS: LACTOBACILLUS RHAMNOSUS GG 1 CAPSULE. PO SCH ×2 (08:45→21:00)
[2018-04-01] MEDS: metroNIDAZOLE 500 MG TABLET PO SCH ×4 (08:45→22:53)
[2018-04-01] MEDS ORDERED: cloNIDine HCL 0.1 MG TABLET PO PRN (09:00)
[2018-04-01] MEDS ORDERED: amLODIPine BESYLATE 10 MG TABLET PO ONE (11:00)
[2018-04-01] MEDS ORDERED: CARVEDILOL 3.125 MG TABLET PO SCH (12:00)
[2018-04-01] MEDS: POTASSIUM CHLORIDE 20 MEQ/15 ML ORAL LIQUID. FT SCH ×2 (12:09→15:07)
--- NOTE | 2018-04-01 13:20 | PDOC2 ---
ISA PRESTON BATHHOUSE ATTENDANT 04/01/18 1320: CONSULT Date of Admission DATE: 04/01/18 TIME: 13:06 Reason for Consult: Hypertension Problem List Problems Medical Problems: (1) Elevated brain natriuretic peptide (BNP) level Status: Acute (2) Hypertensive urgency Status: Acute (3) Hypokalemia Status: Acute History of Present Illness This is a pleasant 72-year-old female who presented to the emergency room with hypertension. She has a past medical history of coronary disease s/p coronary bypass surgery, paroxysmal atrial fibrillation, massive stroke back in the with residual deficits, chronically occluded left internal carotid artery as well as severe stenosis involving the right internal carotid artery that was treated with endarterectomy. The patient does have underlying essential hypertension, mixed hyperlipidemia, seizure disorder, and chronic kidney disease. she has been suffering with frequent diarrhea the last 1 month. Her blood pressure had gotten very low and she was taken off her long-term atenolol. Two days ago she went in to see her primary care doctor and was started on amlodipine after they found her blood pressure to be elevated. When her home health nurse came in her blood pressure continued to be extremely high and yesterday her systolic was greater than 200 so they sent her into the emergency room. She reports that she does have a headache the last 12 hr. It is starting to get better now. She has had some shortness of breath that is her baseline. She denies any chest pain, pressure or tightness. She has not had any syncope but has been very weak and tired of late. Allergies CODEINE Medications Aspir-81once a day Amlodipine 5 mg once daily atorvastatin 80 mg tabletTake 1 tablet(s) every day by oral route ergocalciferol (vitamin D2) 50,000 unit capsuleTake 1 capsule(s) every week by oral route. Fish Oil 1,000 mg (120 mg-180 mg) capsuleTake 1 capsule(s) every day by oral route fludrocortisone 0.1 mg tabletTake 1 tablet(s) every day by oral route for 30 days. levothyroxine 175 mcg tabletTake 1 tablet(s) every day by oral route for 90 days. metroNIDAZOLE 500 mg tabletTake 1 tablet(s) 3 times a day by oral route for 10 days. pantoprazole 40 mg tablet,delayed releaseTake 1 tablet(s) twice a day by oral route for 30 days. PARoxetine 20 mg tabletTake 1 tablet(s) every day by oral route for 90 days. phenytoin sodium extended 100 mg capsuleTake 3 capsule(s) every day by oral route potassium chloride ER 20 mEq tablet,extended release(part/cryst) Eliquis 2.5 mg twice a day Family History Father - Diffuse disease of coronary artery Mother - Diffuse disease of coronary artery - Malignant neoplasm of brain Social History Occupation: retired Marital status: Diet: Regular Exercise level: None Smoking Status: Former smoker Smoker (1 PPW) Tobacco-years of use: 50 Alcohol intake: None Caffeine intake: Occasional Surgical History CABG Hysterectomy Thromboendartectomy neck Past Medical History Atrial Fibrillation: Y Carotid Disease: Y High Cholesterol: Y Hypertension: Y Chronic Kidney Disease: Y Hyperthyroidism: Y Hypothyroidism: Y TIA/Stroke: Y ROS Review of 10 organ systems is negative except for as in HPI. Physical Exam Patient is a 72-year-old female. Constitutional: General Appearance: well-nourished and appears stated age. Level of Distress: comfortable. Psychiatric: Mental Status: alert and normal affect. Orientation: oriented to time, place, and person. Eyes: Lids and Conjunctivae: anicteric and no discharge. Pupils: PERRLA. ENMT: Ears: no lesions on external ear. Nose: no lesions on external nose. Oropharynx: no cyanosis or pallor. Neck: Neck: supple and no masses. Carotid Arteries: no bruits or thrills and bilateral normal upstroke. Jugular Veins: normal jugular venous pressure. Cervical Lymph Nodes: non tender or not enlarged. Thyroid: not enlarged or non tender. Lungs: Respiratory Effort: unlabored. Chest Exam: no chest wall tenderness. Auscultation: no wheezing or rhonchi and clear. Cardiovascular: Precordial Exam: non displaced focal PMI. Rate And Rhythm: regular. Heart Sounds: no rub, gallop, or click and normal S1 and physiologically split S2. Extremities: no cyanosis or edema. Peripheral Pulses: Pulses: full and equal in all extremities except if noted. Radial Pulse: normal. Femoral Pulse: normal. Abdomen: Inspection and Palpation: non distended or tender, no bruit or masses, and soft. Neurologic: Neurological: Grossly intact with no focal deficits. Skin: Inspection and Palpation: warm and dry. Procedure: LEXISCAN NUCLEAR STRESS TEST IMPRESSION (03/11/2018): No scinitigraphic evidence of inducible myocardial ischemia. Left ventricular size and global wall motion appear normal. Elelectrocardiographic findings are within normal limits. LVEF is Normal. Assessment / Plan Essential hypertension-at this point she is uncontrolled. We will increase her amlodipine to 10 mg daily and start her on low dose Coreg. agree with stopping Florinef. Hypokalemia -plan to start electrolyte replacement protocol. Coronary arteriosclerosis in aug[place]ine artery S/p coronary artery bypass grafting - At this point she is asymptomatic. Will continue medical therapy. Atrial fibrillation, paroxysmal. She currently is in sinus rhythm. Her [id number] score is elevated at 7 and she is taking Eliquis for anticoagulation. Mixed hyperlipidemia- continue current medications. History of cerebrovascular accident Carotid artery stenosis status post carotid endarterectomy Chronic kidney disease stage 3 - Stable with a GFR of 34. continue to follow Current Medications Current Medications Labetalol HCl (Normodyne) 20 mg 1X ONCE IVP Last administered on 03/31/18at 12: 24; Start 03/31/18 at 12:30; Stop 03/31/18 at 12:31; Status DC Potassium Chloride (Klor-Con) 40 meq 1X ONCE PO Last administered on at 13:11; Start 03/31/18 at 13:30; Stop 03/31/18 at 13:31; Status DC Furosemide (Lasix) 40 mg 1X ONCE IVP Last administered on 03/31/18at 13:10; Start 03/31/18 at 13:30; Stop 03/31/18 at 13:31; Status DC Levothyroxine Sodium (Synthroid) 175 mcg DAILYAC PO Last administered on at 07:44; Start 04/01/18 at 07:30 Amlodipine Besylate (Norvasc) 5 mg DAILYBFRSUP PO ; Start 04/01/18 at 17:00 Apixaban (Eliquis) 2.5 mg BID PO Last administered on 04/01/18at 08:44; Start at 21:00 Aspirin (Children'S Aspirin) 81 mg DAILYWBKFT PO Last administered on at 08:44; Start 04/01/18 at 08:00 Atorvastatin Calcium (Lipitor) 80 mg QHS PO Last administered on 03/31/18at 20: 25; Start 03/31/18 at 21:00 Vitamin D (Vitamin D3) 1,000 unit DAILY PO Last administered on 04/01/18at 08:43 ; Start 04/01/18 at 09:00 Fish Oil (Fish Oil) 1,000 mg DAILY PO Last administered on 04/01/18at 08:43; Start 04/01/18 at 09:00 Metronidazole (Flagyl) 500 mg TID PO Last administered on 04/01/18at 08:45; Start 03/31/18 at 21:00; Stop 04/04/18 at 20:59 Multivitamins/ Calcium (Thera-M Plus) 1 tab DAILY PO Last administered on at 08:44; Start 04/01/18 at 09:00 Pantoprazole Sodium (Protonix) 40 mg DAILYAC PO Last administered on 04/01/18at 07:44; Start 04/01/18 at 07:30 Paroxetine HCl (Paxil) 20 mg DAILY PO Last administered on 04/01/18at 08:44; Start 04/01/18 at 09:00 Phenytoin Sodium (Dilantin) 300 mg DAILYBFRSUP PO ; Start 04/01/18 at 17:00 Potassium Chloride (Klor-Con) 20 meq TID PO Last administered on 04/01/18at 08: 44; Start 03/31/18 at 21:00 Lactobacillus Rhamnosus (Culturelle) 1 cap BID PO Last administered on at 08:45; Start 03/31/18 at 21:00 Amlodipine Besylate (Norvasc) 10 mg 1X ONCE PO Last administered on 03/31/18at 22:33; Start 03/31/18 at 23:00; Stop 03/31/18 at 23:01; Status DC Acetaminophen (Tylenol) 650 mg PRN Q6HRS PRN PO PAIN / TEMP; Start 03/31/18 at 22:30 Clonidine HCl (Catapres) 0.1 mg 1X ONCE PO Last administered on 04/01/18at 08: 45; Start 04/01/18 at 08:30; Stop 04/01/18 at 08:37; Status DC Clonidine HCl (Catapres) 0.1 mg PRN 1X PRN PO HYPERTENSION, SEE COMMENTS Last administered on 04/01/18at 10:14; Start 04/01/18 at 09:00 Amlodipine Besylate (Norvasc) 10 mg 1X ONCE PO Last administered on 04/01/18at 10:48; Start 04/01/18 at 11:00; Stop 04/01/18 at 11:01; Status DC Carvedilol (Coreg) 3.125 mg BIDWMEALS PO Last administered on 04/01/18at 12:09; Start 04/01/18 at 12:00 Potassium Chloride (KCl Oral Soln) 40 meq Q4H FT Last administered on at 12:09; Start 04/01/18 at 12:00; Stop 04/01/18 at 16:01 Active Scripts Active Reported Multi Vitamin Daily (Multivitamin) 1 Each Tablet 1 Tab PO DAILY Vitamin D (Cholecalciferol (Vitamin D3)) 1,000 Unit Capsule 1 Cap PO DAILY [place] 3-6-9 1,200 mg Softgel (Fish Oil/Borage/Flax/Om3,6,9#1) 1,200 Mg Capsule 1 ,200 Mg PO DAILY Aspirin 81 Mg Tab.chew 81 Mg PO DAILY Atorvastatin Calcium 80 Mg Tablet 1 Tab PO HS Levothyroxine Sodium 175 Mcg Tablet 1 Tab PO DAILY Paroxetine Hcl 20 Mg Tablet 1 Tab PO DAILY K-Tab ER (Potassium Chloride) 20 Meq Tablet.er 1 Tab PO TID Fludrocortisone Acetate 0.1 Mg Tablet 1 Tab PO DAILY Metronidazole 500 Mg Tablet 1 Tab PO TID Eliquis (Apixaban) 5 Mg Tablet 0.5 Tab PO BID Phenytoin Sodium Extended 100 Mg Capsule 3 Cap PO DAILYBFRSUP Omeprazole 40 Mg Capsule.dr 1 Cap PO BID Amlodipine Besylate 5 Mg Tablet 1 Tab PO DAILYBFRSUP Allergies: Coded Allergies: codeine (Verified Allergy, Intermediate, 04/01/18) VITALS Vital Signs Date Time Temp Pulse Resp B/P (MAP) Pulse Ox O2 Delivery O2 Flow Rate FiO2 04/01/18 12:09 93 179/96 04/01/18 11:41 97.6 18 99 Room Air Labs Laboratory Tests Test 03/31/18 11:55 03/31/18 13:26 03/31/18 14:28 04/01/18 07:42 White Blood Count 6.0 x10^3/uL (4.0-11.0) 7.9 x10^3/uL (4.0-11.0) Red Blood Count 4.68 x10^6/uL (3.50-5.40) 4.67 x10^6/uL (3.50-5.40) Hemoglobin 14.4 g/dL (12.0-15.5) 14.3 g/dL (12.0-15.5) Hematocrit 41.6 % (36.0-47.0) 40.7 % (36.0-47.0) Mean Corpuscular Volume 89 fL (79-100) 87 fL (79-100) Mean Corpuscular Hemoglobin 31 pg (25-35) 31 pg (25-35) Mean Corpuscular Hemoglobin Concent 35 g/dL (31-37) 35 g/dL (31-37) Red Cell Distribution Width 16.1 % (11.5-14.5) 16.6 % (11.5-14.5) Platelet Count 331 x10^3/uL (140-400) 333 x10^3/uL (140-400) Neutrophils (%) (Auto) 70 % (31-73) 81 % (31-73) Lymphocytes (%) (Auto) 17 % (24-48) 10 % (24-48) Monocytes (%) (Auto) 13 % (0-9) 8 % (0-9) Eosinophils (%) (Auto) 1 % (0-3) 0 % (0-3) Basophils (%) (Auto) 0 % (0-3) 0 % (0-3) Neutrophils # (Auto) 4.2 x10^3uL (1.8-7.7) 6.4 x10^3uL (1.8-7.7) Lymphocytes # (Auto) 1.0 x10^3/uL (1.0-4.8) 0.8 x10^3/uL (1.0-4.8) Monocytes # (Auto) 0.8 x10^3/uL (0.0-1.1) 0.7 x10^3/uL (0.0-1.1) Eosinophils # (Auto) 0.0 x10^3/uL (0.0-0.7) 0.0 x10^3/uL (0.0-0.7) Basophils # (Auto) 0.0 x10^3/uL (0.0-0.2) 0.0 x10^3/uL (0.0-0.2) Sodium Level 137 mmol/L (136-145) 133 mmol/L (136-145) Potassium Level 3.3 mmol/L (3.5-5.1) 2.9 mmol/L (3.5-5.1) Chloride Level 99 mmol/L (98-107) 98 mmol/L (98-107) Carbon Dioxide Level 27 mmol/L (21-32) 25 mmol/L (21-32) Anion Gap 11 (6-14) 10 (6-14) Blood Urea Nitrogen 23 mg/dL (7-20) 18 mg/dL (7-20) Creatinine 1.5 mg/dL (0.6-1.0) 1.5 mg/dL (0.6-1.0) Estimated GFR (Cockcroft-Gault) 34.1 34.1 BUN/Creatinine Ratio 15 (6-20) 12 (6-20) Glucose Level 106 mg/dL (70-99) 156 mg/dL (70-99) Calcium Level 9.4 mg/dL (8.5-10.1) 9.4 mg/dL (8.5-10.1) Total Bilirubin 0.2 mg/dL (0.2-1.0) 0.2 mg/dL (0.2-1.0) Aspartate Amino Transf (AST/SGOT) 30 U/L (15-37) 28 U/L (15-37) Alanine Aminotransferase (ALT/SGPT) 31 U/L (14-59) 29 U/L (14-59) Alkaline Phosphatase 72 U/L (46-116) 71 U/L (46-116) Creatine Kinase 110 U/L (26-192) Creatine Kinase MB (Mass) 1.0 ng/mL (0.0-3.6) Creatine Kinase MB Relative Index 0.9 % (0-4) Troponin I Quantitative < 0.017 ng/mL (0-0.055) 0.022 ng/mL (0-0.055) BY-Qyh-Z-Type Natriuretic Peptide 4428 pg/mL (0-124) Total Protein 8.2 g/dL (6.4-8.2) 7.7 g/dL (6.4-8.2) Albumin 2.9 g/dL (3.4-5.0) 2.6 g/dL (3.4-5.0) Albumin/Globulin Ratio 0.5 (1.0-1.7) 0.5 (1.0-1.7) Phenytoin (Dilantin) Level 13.3 mcg/mL (10.0-20.0) Phenytoin Last Dose Date 03/31/18 Phenytoin Last Dose Time 0800 Urine Collection Type Void Urine Color Yellow Urine Clarity Clear Urine pH 7.0 Urine Specific [place] 1.020 Urine Protein >100 mg/dl (NEG-TRACE) Urine Glucose (UA) Neg mg/dL (NEG) Urine Ketones (Stick) Neg mg/dL (NEG) Urine Blood Trace (NEG) Urine Nitrite Neg (NEG) Urine Bilirubin Neg (NEG) Urine Urobilinogen Dipstick 0.2 mg/dL (0.2 mg/dL) Urine Leukocyte Esterase Neg (NEG) Urine RBC 3-5 /HPF (0-2) Urine WBC 1-4 /HPF (0-4) Urine Squamous Epithelial Cells Few /LPF Urine Bacteria Few /HPF (0-FEW) Urine Hyaline Casts Occ /HPF Urine Granular Casts Occ /HPF MAYCOL ORELLANA Jr, MD 04/03/18 1108: CONSULT Assessment/Plan The patient was seen by Isa Preston APRN and I have reviewed her findings and plan and agree with above. Due to staffing constraints, we did not have an attending available on this day to see the patient. MD MOHAN Dyson Jr., JANAE M APRN Apr 01, 2018 13:20 MAYCOL ORELLANA Jr, MD Apr 03, 2018 11:08
[2018-04-01] MEDS ORDERED: CARVEDILOL 3.125 MG TABLET PO ONE (15:00)
[2018-04-01] MEDS: hydrALAZINE 20 MG/ML VIAL. IV PRN (15:12)
[2018-04-01] MEDS: amLODIPine BESYLATE 5 MG TABLET PO SCH (17:06)
[2018-04-01] MEDS: CARVEDILOL 6.25 MG TABLET PO SCH (17:07)
[2018-04-01] MEDS: PHENYTOIN SODIUM EXTENDED 100 MG CAPSULE PO SCH (17:07)
--- NOTE | 2018-04-01 17:52 | PDOC ---
SUBJECTIVE: I received report from Dr. Torres, I reviewed her chart. I find this 72-year-old female to be sleeping with family present. She complains of fatigue when she is aroused however she is pleasant and cooperative during my examination. She denies any chest discomfort, denies any recent loose stools and her last bowel movement was early this morning. Her blood pressures have continued to be uncontrolled with increased Coreg dosing per cardiology. Aside from fatigue she exhibits no associated symptoms with the elevated blood pressures. She and the family report that cardiology was very thorough in detailing the probable cause of her blood pressures. Patient and family deny any other concerns or questions or complaints at this time. OBJECTIVE: Problems: Problems Medical Problems: (1) Elevated brain natriuretic peptide (BNP) level Status: Acute (2) Hypertensive urgency Status: Acute (3) Hypokalemia Status: Acute Vital Signs: Vital Signs Date Time Temp Pulse Resp B/P (MAP) Pulse Ox O2 Delivery O2 Flow Rate FiO2 04/01/18 17:07 97 171/90 04/01/18 16:30 20 97 Room Air 04/01/18 11:41 97.6 I & O Intake and Output 04/01/18 07:00 Intake Total 360 ml Balance 360 ml Intake Oral 360 ml # Voids 7 Labs: Laboratory Tests Test 03/31/18 11:55 03/31/18 13:26 03/31/18 14:28 04/01/18 07:42 White Blood Count 6.0 x10^3/uL (4.0-11.0) 7.9 x10^3/uL (4.0-11.0) Red Blood Count 4.68 x10^6/uL (3.50-5.40) 4.67 x10^6/uL (3.50-5.40) Hemoglobin 14.4 g/dL (12.0-15.5) 14.3 g/dL (12.0-15.5) Hematocrit 41.6 % (36.0-47.0) 40.7 % (36.0-47.0) Mean Corpuscular Volume 89 fL (79-100) 87 fL (79-100) Mean Corpuscular Hemoglobin 31 pg (25-35) 31 pg (25-35) Mean Corpuscular Hemoglobin Concent 35 g/dL (31-37) 35 g/dL (31-37) Red Cell Distribution Width 16.1 % (11.5-14.5) 16.6 % (11.5-14.5) Platelet Count 331 x10^3/uL (140-400) 333 x10^3/uL (140-400) Neutrophils (%) (Auto) 70 % (31-73) 81 % (31-73) Lymphocytes (%) (Auto) 17 % (24-48) 10 % (24-48) Monocytes (%) (Auto) 13 % (0-9) 8 % (0-9) Eosinophils (%) (Auto) 1 % (0-3) 0 % (0-3) Basophils (%) (Auto) 0 % (0-3) 0 % (0-3) Neutrophils # (Auto) 4.2 x10^3uL (1.8-7.7) 6.4 x10^3uL (1.8-7.7) Lymphocytes # (Auto) 1.0 x10^3/uL (1.0-4.8) 0.8 x10^3/uL (1.0-4.8) Monocytes # (Auto) 0.8 x10^3/uL (0.0-1.1) 0.7 x10^3/uL (0.0-1.1) Eosinophils # (Auto) 0.0 x10^3/uL (0.0-0.7) 0.0 x10^3/uL (0.0-0.7) Basophils # (Auto) 0.0 x10^3/uL (0.0-0.2) 0.0 x10^3/uL (0.0-0.2) Sodium Level 137 mmol/L (136-145) 133 mmol/L (136-145) Potassium Level 3.3 mmol/L (3.5-5.1) 2.9 mmol/L (3.5-5.1) Chloride Level 99 mmol/L (98-107) 98 mmol/L (98-107) Carbon Dioxide Level 27 mmol/L (21-32) 25 mmol/L (21-32) Anion Gap 11 (6-14) 10 (6-14) Blood Urea Nitrogen 23 mg/dL (7-20) 18 mg/dL (7-20) Creatinine 1.5 mg/dL (0.6-1.0) 1.5 mg/dL (0.6-1.0) Estimated GFR (Cockcroft-Gault) 34.1 34.1 BUN/Creatinine Ratio 15 (6-20) 12 (6-20) Glucose Level 106 mg/dL (70-99) 156 mg/dL (70-99) Calcium Level 9.4 mg/dL (8.5-10.1) 9.4 mg/dL (8.5-10.1) Total Bilirubin 0.2 mg/dL (0.2-1.0) 0.2 mg/dL (0.2-1.0) Aspartate Amino Transf (AST/SGOT) 30 U/L (15-37) 28 U/L (15-37) Alanine Aminotransferase (ALT/SGPT) 31 U/L (14-59) 29 U/L (14-59) Alkaline Phosphatase 72 U/L (46-116) 71 U/L (46-116) Creatine Kinase 110 U/L (26-192) Creatine Kinase MB (Mass) 1.0 ng/mL (0.0-3.6) Creatine Kinase MB Relative Index 0.9 % (0-4) Troponin I Quantitative < 0.017 ng/mL (0-0.055) 0.022 ng/mL (0-0.055) UO-Wrv-F-Type Natriuretic Peptide 4428 pg/mL (0-124) Total Protein 8.2 g/dL (6.4-8.2) 7.7 g/dL (6.4-8.2) Albumin 2.9 g/dL (3.4-5.0) 2.6 g/dL (3.4-5.0) Albumin/Globulin Ratio 0.5 (1.0-1.7) 0.5 (1.0-1.7) Phenytoin (Dilantin) Level 13.3 mcg/mL (10.0-20.0) Phenytoin Last Dose Date 03/31/18 Phenytoin Last Dose Time 0800 Urine Collection Type Void Urine Color Yellow Urine Clarity Clear Urine pH 7.0 Urine Specific [place] 1.020 Urine Protein >100 mg/dl (NEG-TRACE) Urine Glucose (UA) Neg mg/dL (NEG) Urine Ketones (Stick) Neg mg/dL (NEG) Urine Blood Trace (NEG) Urine Nitrite Neg (NEG) Urine Bilirubin Neg (NEG) Urine Urobilinogen Dipstick 0.2 mg/dL (0.2 mg/dL) Urine Leukocyte Esterase Neg (NEG) Urine RBC 3-5 /HPF (0-2) Urine WBC 1-4 /HPF (0-4) Urine Squamous Epithelial Cells Few /LPF Urine Bacteria Few /HPF (0-FEW) Urine Hyaline Casts Occ /HPF Urine Granular Casts Occ /HPF Test 04/01/18 14:13 Potassium Level 4.7 mmol/L (3.5-5.1) Physical Exam: Gen.: Weak and drowsy in no apparent distress HEENT: Normocephalic/atraumatic, nose and throat clear moist mucous membranes Neck: Supple and nontender, no tender lymphadenopathy Cardiovascular: Normal S1 and S2 no murmurs Pulmonary: Good air movement no respiratory distress lungs are clear Abdomen: Soft nontender nondistended, no focal tenderness Extremities: Nontender, no swelling ASSESSMENT: Uncontrolled hypertension Hypokalemia resolved PLAN: I discussed the patient with today calls and over the phone. Cardiology feels that once the fludrocortisone leaves the patient's system her blood pressures should stabilize and be responsive to her prior home medications. For now the patient's Coreg has been increased and when necessary hydralazine ordered as well. As her potassium is 4.7 I DC'd her evening potassium dosing and monitor chemistry for tomorrow morning. ROSALIND TRACY DO Apr 01, 2018 5:52 pm
[2018-04-01] MEDS ORDERED: ELECTROLYTE (NON-ICU) PROTOCOL MC PRN (19:15)
[2018-04-01] MEDS: ATORVASTATIN CALCIUM 20 MG TABLET PO SCH ×2 (21:00→22:56)
[2018-04-02] VITALS (9 sets, daily range): BP systolic 160–213; BP diastolic 65–113
[2018-04-02 06:50] LABS: CALCIUM 9.2 mg/dL (8.5-10.1); CREATININE 1.7 mg/dL (0.6-1.0); GFR 29.5; POTASSIUM 3.7 mmol/L (3.5-5.1)
[2018-04-02] MEDS: CHOLECALCIFEROL (VITAMIN D3) 1,000 UNIT TABLET PO SCH (08:34)
[2018-04-02] MEDS: amLODIPine BESYLATE 5 MG TABLET PO SCH (08:34)
[2018-04-02] MEDS: PANTOPRAZOLE 40 MG TABLET. PO SCH (08:34)
[2018-04-02] MEDS: OMEGA-3 FATTY ACIDS/FISH OIL 1,000 MG CAPSULE. PO SCH (08:34)
[2018-04-02] MEDS: metroNIDAZOLE 500 MG TABLET PO SCH ×3 (08:34→20:29)
[2018-04-02] MEDS: PARoxetine 20 MG TABLET PO SCH (08:34)
[2018-04-02] MEDS: POTASSIUM CHLORIDE 20 MEQ TABLET.ER. PO SCH ×3 (08:35→20:30)
[2018-04-02] MEDS: ASPIRIN 81 MG TAB.CHEW PO SCH (08:35)
[2018-04-02] MEDS: MULTIVITAMIN with MINERAL TABLET. PO SCH (08:35)
[2018-04-02] MEDS: LACTOBACILLUS RHAMNOSUS GG 1 CAPSULE. PO SCH ×2 (08:35→20:29)
[2018-04-02] MEDS: APIXABAN 2.5 MG TABLET PO SCH ×2 (08:35→20:29)
[2018-04-02] MEDS: LEVOTHYROXINE 175 MCG TABLET PO SCH (08:36)
[2018-04-02] MEDS: CARVEDILOL 6.25 MG TABLET PO SCH ×2 (08:36→16:43)
[2018-04-02] MEDS: hydrALAZINE 20 MG/ML VIAL. IV PRN ×2 (08:38→14:45)
[2018-04-02] MEDS: ONDANSETRON PF 4 MG/2 ML VIAL. IV PRN ×2 (12:38→18:14)
[2018-04-02] MEDS: amLODIPine BESYLATE 10 MG TABLET PO SCH (14:47)
[2018-04-02] MEDS: PHENYTOIN SODIUM EXTENDED 100 MG CAPSULE PO SCH (16:42)
[2018-04-02] MEDS ORDERED: IV NORMAL SALINE 1,000ML 1,000 ML IV SCH (17:14)
--- NOTE | 2018-04-02 18:41 | PDOC ---
SUBJECTIVE: I find Bertha to be nauseous lying in bed today. She says she's had multiple episodes of nausea and vomiting intermittently throughout the day and has not had much of an appetite. She denies any focal abdominal pain or bloating, she complains of dry mouth and her family reports that she has urinated twice today. She's had no chest pain or trouble breathing, she's had no loose stools today. Nursing reports that she had some elevated blood pressures this morning reaching as high as 208/99 however they did improve significantly with as needed hydralazine averaging around 160-170 systolic and as low as 147/52. OBJECTIVE: Problems: Problems Medical Problems: (1) Elevated brain natriuretic peptide (BNP) level Status: Acute (2) Hypertensive urgency Status: Acute (3) Hypokalemia Status: Acute Sodium has dropped to 131, potassium 3.7, BUN 23, creatinine 1.7, C. difficile studies negative. Other labs as recorded below Vital Signs: Vital Signs Date Time Temp Pulse Resp B/P (MAP) Pulse Ox O2 Delivery O2 Flow Rate FiO2 04/02/18 16:43 105 170/90 04/02/18 16:29 95 Room Air 04/02/18 15:52 97.2 04/02/18 14:28 20 I & O Intake and Output 04/02/18 07:00 Intake Total 240 ml Balance 240 ml Intake Oral 240 ml # Voids 5 # Bowel Movements 4 Labs: Laboratory Tests Test 04/01/18 01:25 04/01/18 07:42 04/01/18 14:13 04/02/18 06:00 Clostridium difficile Toxin (PCR) Negative (Negative) White Blood Count 7.9 x10^3/uL (4.0-11.0) Red Blood Count 4.67 x10^6/uL (3.50-5.40) Hemoglobin 14.3 g/dL (12.0-15.5) Hematocrit 40.7 % (36.0-47.0) Mean Corpuscular Volume 87 fL (79-100) Mean Corpuscular Hemoglobin 31 pg (25-35) Mean Corpuscular Hemoglobin Concent 35 g/dL (31-37) Red Cell Distribution Width 16.6 % (11.5-14.5) Platelet Count 333 x10^3/uL (140-400) Neutrophils (%) (Auto) 81 % (31-73) Lymphocytes (%) (Auto) 10 % (24-48) Monocytes (%) (Auto) 8 % (0-9) Eosinophils (%) (Auto) 0 % (0-3) Basophils (%) (Auto) 0 % (0-3) Neutrophils # (Auto) 6.4 x10^3uL (1.8-7.7) Lymphocytes # (Auto) 0.8 x10^3/uL (1.0-4.8) Monocytes # (Auto) 0.7 x10^3/uL (0.0-1.1) Eosinophils # (Auto) 0.0 x10^3/uL (0.0-0.7) Basophils # (Auto) 0.0 x10^3/uL (0.0-0.2) Sodium Level 133 mmol/L (136-145) 131 mmol/L (136-145) Potassium Level 2.9 mmol/L (3.5-5.1) 4.7 mmol/L (3.5-5.1) 3.7 mmol/L (3.5-5.1) Chloride Level 98 mmol/L (98-107) 98 mmol/L (98-107) Carbon Dioxide Level 25 mmol/L (21-32) 22 mmol/L (21-32) Anion Gap 10 (6-14) 11 (6-14) Blood Urea Nitrogen 18 mg/dL (7-20) 23 mg/dL (7-20) Creatinine 1.5 mg/dL (0.6-1.0) 1.7 mg/dL (0.6-1.0) Estimated GFR (Cockcroft-Gault) 34.1 29.5 BUN/Creatinine Ratio 12 (6-20) Glucose Level 156 mg/dL (70-99) 142 mg/dL (70-99) Calcium Level 9.4 mg/dL (8.5-10.1) 9.2 mg/dL (8.5-10.1) Total Bilirubin 0.2 mg/dL (0.2-1.0) Aspartate Amino Transf (AST/SGOT) 28 U/L (15-37) Alanine Aminotransferase (ALT/SGPT) 29 U/L (14-59) Alkaline Phosphatase 71 U/L (46-116) Total Protein 7.7 g/dL (6.4-8.2) Albumin 2.6 g/dL (3.4-5.0) Albumin/Globulin Ratio 0.5 (1.0-1.7) Physical Exam: Gen.: Mild distress with nausea, pale and alert HEENT: Dry mucous membranes, nose and throat clear, normocephalic Neck: Supple, nontender no lymphadenopathy Cardiovascular: Normal S1 and S2 no murmur Pulmonary: Good air movement, no rales rhonchi or wheezes chest is nontender Abdomen: Soft, nondistended, right upper quadrant tenderness with no rebound guarding or palpable mass Extremities: Nontender, no swelling Neuro: Cranial nerves II through XII intact no lateralizing neuro deficits ASSESSMENT: Uncontrolled hypertension Right upper quadrant tenderness with nausea and vomiting Dehydration with hyponatremia and renal insufficiency PLAN: Continue antihypertensive medications per cardiology. When necessary Phenergan added to help control nausea or vomiting. Although her pressures are elevated her labs and exam indicate dehydration and normal saline initiated at 200 mL per hour. Check a lipase and abdominal ultrasound as well as CBC and CMP in the morning. ROSALIND TRACY DO Apr 02, 2018 6:41 pm
[2018-04-02] MEDS: ATORVASTATIN CALCIUM 20 MG TABLET PO SCH (20:29)
[2018-04-03] VITALS (7 sets, daily range): BP systolic 100–207; BP diastolic 65–110
[2018-04-03] MEDS: amLODIPine BESYLATE 10 MG TABLET PO SCH (06:08)
[2018-04-03] MEDS: ONDANSETRON PF 4 MG/2 ML VIAL. IV PRN (06:11)
[2018-04-03 06:39] LABS: BASO % 0 % (0-3); EOS % 0 % (0-3); HEMATOCRIT 42.2 % (36.0-47.0); HEMOGLOBIN 14.5 g/dL (12.0-15.5); LYMPH # 1.1 x10^3/uL (1.0-4.8); LYMPH % 10 % (24-48); MEAN CORPUSCULAR HEMOGLOBIN 30 pg (25-35); MEAN CORPUSCULAR HGB CONC 34 g/dL (31-37); MEAN CORPUSCULAR VOLUME 89 fL (79-100); MONO # 1.1 x10^3/uL (0.0-1.1); MONO % 11 % (0-9); NEUT % 79 % (31-73); PLATELET COUNT 376 x10^3/uL (140-400); RED BLOOD COUNT 4.75 x10^6/uL (3.50-5.40); RED CELL DISTRIBUTION WIDTH 16.8 % (11.5-14.5); WHITE BLOOD COUNT 10.2 x10^3/uL (4.0-11.0)
[2018-04-03 06:56] LABS: ALBUMIN 2.3 g/dL (3.4-5.0); ALBUMIN/GLOBULIN RATIO 0.5 (1.0-1.7); CALCIUM 8.4 mg/dL (8.5-10.1); CREATININE 1.6 mg/dL (0.6-1.0); GFR 31.7; POTASSIUM 3.3 mmol/L (3.5-5.1); TOTAL BILIRUBIN 0.3 mg/dL (0.2-1.0); TOTAL PROTEIN 7.1 g/dL (6.4-8.2)
[2018-04-03] MEDS ORDERED: POTASSIUM CHLORIDE 20 MEQ TABLET.ER. PO ONE (07:30)
[2018-04-03] MEDS: PANTOPRAZOLE 40 MG TABLET. PO SCH (08:33)
[2018-04-03] MEDS: LACTOBACILLUS RHAMNOSUS GG 1 CAPSULE. PO SCH ×2 (08:34→20:16)
[2018-04-03] MEDS: ASPIRIN 81 MG TAB.CHEW PO SCH (08:34)
[2018-04-03] MEDS: PARoxetine 20 MG TABLET PO SCH (08:34)
[2018-04-03] MEDS: OMEGA-3 FATTY ACIDS/FISH OIL 1,000 MG CAPSULE. PO SCH (08:34)
[2018-04-03] MEDS: APIXABAN 2.5 MG TABLET PO SCH ×2 (08:34→20:15)
[2018-04-03] MEDS: CHOLECALCIFEROL (VITAMIN D3) 1,000 UNIT TABLET PO SCH (08:34)
[2018-04-03] MEDS: metroNIDAZOLE 500 MG TABLET PO SCH ×3 (08:34→20:15)
[2018-04-03] MEDS: MULTIVITAMIN with MINERAL TABLET. PO SCH (08:34)
[2018-04-03] MEDS: LEVOTHYROXINE 175 MCG TABLET PO SCH (08:34)
[2018-04-03] MEDS: CARVEDILOL 6.25 MG TABLET PO SCH ×2 (08:34→17:27)
[2018-04-03] MEDS: hydrALAZINE 20 MG/ML VIAL. IV PRN ×3 (08:35→23:20)
--- NOTE | 2018-04-03 08:53 | RAD ---
Abdominal ultrasound 04/03/2018. Reason for exam: Nausea and vomiting with right upper quadrant pain. FINDINGS: The liver is homogeneous in echotexture, and no intra or extrahepatic ductal dilatation is seen. The gallbladder is free of stones or wall thickening. The left kidney is hard to see. It is probably atrophy. It measures about 6.6 cm. The right kidney shows normal cortical thickness. Echogenicity appears increased. There are small cortical cysts. No solid mass or obstruction is seen. The spleen is not enlarged. The pancreas was poorly seen, but its visualized portion appears normal. The abdominal aorta and inferior vena cava appear normal in their visualized segments. IMPRESSION: No acute findings. Chronic-appearing renal abnormalities. Electronically signed by: Norberto Marinelli Jr., MD (04/03/2018 8:50 AM) [facility] [place]
[2018-04-03] MEDS: POTASSIUM CHLORIDE 20 MEQ TABLET.ER. PO SCH ×3 (11:03→20:15)
[2018-04-03] MEDS ORDERED: PROMETHAZINE 25 MG/ML VIAL IV ONE (11:24)
[2018-04-03] MEDS ORDERED: IV NORMAL SALINE 1,000ML 1,000 ML IV SCH ×2 (11:38)
[2018-04-03] MEDS: PROMETHAZINE 25 MG in IV NORMAL SALINE 50ML 50 ML IV PRN ×2 (11:41→11:42)
[2018-04-03] MEDS ORDERED: PROCHLORPERAZINE 10 MG/2 ML VIAL. IV ONE (12:00)
--- NOTE | 2018-04-03 12:23 | PDOC ---
SUBJECTIVE: I find the patient lying in bed resting. She complains of some nausea but does not appear to be in any distress. She states that she's had a few episodes of emesis and one loose stool overnight, she's had no appetite and has taken very little by mouth. She is expressing frustration as she does not feel she is getting any better. Nursing advises that the patient once again did not receive her when necessary hydralazine overnight and her pressures and increased to low 200 systolic. After receiving her when necessary hydralazine this morning pressure improved to 146/77 supine, 100/65 standing. Nursing advises that the patient appears to be most nauseous after medications are administered. Patient continues to deny any chest pain trouble breathing vision changes or lateralizing neuro deficits. She denies any focal abdominal pain complaints. I discussed her unremarkable abdominal ultrasound results with her. OBJECTIVE: Problems: Problems Medical Problems: (1) Elevated brain natriuretic peptide (BNP) level Status: Acute (2) Hypertensive urgency Status: Acute (3) Hypokalemia Status: Acute Patient received 1000 mL normal saline overnight. Sodium lowered to 129 from 131 , potassium is 3.3, BUN improved to 21 and creatinine 1.6. Vital Signs: Vital Signs Date Time Temp Pulse Resp B/P (MAP) Pulse Ox O2 Delivery O2 Flow Rate FiO2 04/03/18 10:13 97.8 113 18 146/77 (100) 97 Room Air I & O Intake and Output 04/03/18 07:00 Intake Total 240 ml Balance 240 ml Intake Oral 240 ml # Voids 6 # Bowel Movements 1 Labs: Laboratory Tests Test 04/01/18 14:13 04/02/18 06:00 04/03/18 06:27 Potassium Level 4.7 mmol/L (3.5-5.1) 3.7 mmol/L (3.5-5.1) 3.3 mmol/L (3.5-5.1) Sodium Level 131 mmol/L (136-145) 129 mmol/L (136-145) Chloride Level 98 mmol/L (98-107) 97 mmol/L (98-107) Carbon Dioxide Level 22 mmol/L (21-32) 19 mmol/L (21-32) Anion Gap 11 (6-14) 13 (6-14) Blood Urea Nitrogen 23 mg/dL (7-20) 21 mg/dL (7-20) Creatinine 1.7 mg/dL (0.6-1.0) 1.6 mg/dL (0.6-1.0) Estimated GFR (Cockcroft-Gault) 29.5 31.7 Glucose Level 142 mg/dL (70-99) 147 mg/dL (70-99) Calcium Level 9.2 mg/dL (8.5-10.1) 8.4 mg/dL (8.5-10.1) Lipase 255 U/L (73-393) White Blood Count 10.2 x10^3/uL (4.0-11.0) Red Blood Count 4.75 x10^6/uL (3.50-5.40) Hemoglobin 14.5 g/dL (12.0-15.5) Hematocrit 42.2 % (36.0-47.0) Mean Corpuscular Volume 89 fL (79-100) Mean Corpuscular Hemoglobin 30 pg (25-35) Mean Corpuscular Hemoglobin Concent 34 g/dL (31-37) Red Cell Distribution Width 16.8 % (11.5-14.5) Platelet Count 376 x10^3/uL (140-400) Neutrophils (%) (Auto) 79 % (31-73) Lymphocytes (%) (Auto) 10 % (24-48) Monocytes (%) (Auto) 11 % (0-9) Eosinophils (%) (Auto) 0 % (0-3) Basophils (%) (Auto) 0 % (0-3) Neutrophils # (Auto) 8.0 x10^3uL (1.8-7.7) Lymphocytes # (Auto) 1.1 x10^3/uL (1.0-4.8) Monocytes # (Auto) 1.1 x10^3/uL (0.0-1.1) Eosinophils # (Auto) 0.0 x10^3/uL (0.0-0.7) Basophils # (Auto) 0.0 x10^3/uL (0.0-0.2) BUN/Creatinine Ratio 13 (6-20) Total Bilirubin 0.3 mg/dL (0.2-1.0) Aspartate Amino Transf (AST/SGOT) 31 U/L (15-37) Alanine Aminotransferase (ALT/SGPT) 25 U/L (14-59) Alkaline Phosphatase 66 U/L (46-116) Total Protein 7.1 g/dL (6.4-8.2) Albumin 2.3 g/dL (3.4-5.0) Albumin/Globulin Ratio 0.5 (1.0-1.7) PATIENT: CHARLIE LINARES ACCOUNT: [id number] : 1945 LOCATION: [facility] AGE: 72 SEX: F EXAM STATUS: ADM IN ORD. PHYSICIAN: ROSALIND TRACY DO REASON: N/V, RUQ tenderness PROCEDURE: ABDOMEN COMPLETE Abdominal ultrasound 04/03/2018. Reason for exam: Nausea and vomiting with right upper quadrant pain. FINDINGS: The liver is homogeneous in echotexture, and no intra or extrahepatic ductal dilatation is seen. The gallbladder is free of stones or wall thickening. The left kidney is hard to see. It is probably atrophy. It measures about 6.6 cm. The right kidney shows normal cortical thickness. Echogenicity appears increased. There are small cortical cysts. No solid mass or obstruction is seen. The spleen is not enlarged. The pancreas was poorly seen, but its visualized portion appears normal. The abdominal aorta and inferior vena cava appear normal in their visualized segments. IMPRESSION: No acute findings. Chronic-appearing renal abnormalities. Electronically signed by: Tatyana Marinelli Jr., MD (04/03/2018 8:50 AM) [facility] [place] AND SIGNED BY: TATYANA MARINELLI Jr, MD DATE: 04/03/18 0847 CC: CRISTOBAL MARTINEZ MD; JAMILA WOOD MD; ROSALIND TRACY DO ~ Physical Exam: Gen.: No apparent distress alert awake HEENT: Dry membranes, nose and throat clear no oral lesions Cardiovascular: S1 and S2 no murmurs Pulmonary: Good air movement no respiratory distress no rales or wheezes Abdomen: Mildly distended and tympanic with some persistent right upper quadrant tenderness slightly improved, faint bowel sounds no palpable masses Extremities: Moves all extremities, no clubbing cyanosis or edema ASSESSMENT: Uncontrolled hypertension Nausea vomiting Hypovolemic hyponatremia Renal insufficiency PLAN: I stressed the importance to nursing to administer her medications as ordered including when necessary medications. Patient's blood pressure is controlled when when necessary hydralazine as given. Difficult to tell whether the patient' s nausea is due to blood pressure fluctuation and underlying obstruction, we'll check an abdominal series. When necessary Phenergan was not given nursing advises that it has been discontinued. We'll continue IV hydration and add Compazine for nausea. Check a TSH, further studies to be ordered as indicated. ROSALIND TRACY DO Apr 03, 2018 12:23 pm
--- NOTE | 2018-04-03 12:49 | RAD ---
Single view chest and upright and supine AP views abdomen 04/03/2018 CLINICAL INDICATION: Abdominal pain with vomiting. COMPARISON: Chest radiograph 03/31/2018. FINDINGS: Prior median sternotomy. Internal fixation of the left humerus with visualization of humeral neck fracture lines. Cardiac and mediastinal silhouettes are unremarkable. No pleural effusion, pneumothorax or focal consolidation. Calcified atheromatous disease of the thoracic aortic arch. There is a nonobstructive bowel gas pattern. No evidence of pneumoperitoneum. Multilevel lumbar spondylosis. IMPRESSION: 1. No acute cardiopulmonary abnormality. 2. No radiographic evidence of bowel obstruction. Electronically signed by: Gato Botello MD (04/03/2018 12:46 PM) [facility]
[2018-04-03] MEDS ORDERED: ONDANSETRON PF 4 MG/2 ML VIAL. IV PRN (14:00)
[2018-04-03] MEDS ORDERED: PROCHLORPERAZINE 10 MG/2 ML VIAL. IV PRN (14:00)
--- NOTE | 2018-04-03 16:33 | RAD ---
EXAM: VENTILATION/PERFUSION SCINTIGRAPHY. 04/03/2018 HISTORY: . Elevated d-dimer, tachycardia, recent surgery. TECHNIQUE: 12.0 mCi Xe-133 was inhaled and ventilation images were obtained. 5.5 mCi Tc-99m MAA was injected intravenously and perfusion images were obtained in multiple projections. COMPARISON: None. FINDINGS: Ventilation images demonstrate a physiologic distribution of radiotracer. Perfusion images demonstrate no segmental defects. IMPRESSION: Very low probability VQ scan for pulmonary embolism. Electronically signed by: Gato Botello MD (04/03/2018 4:29 PM) [facility]
[2018-04-03] MEDS: PHENYTOIN SODIUM EXTENDED 100 MG CAPSULE PO SCH (17:27)
[2018-04-03] MEDS ORDERED: ZOLPIDEM 5 MG TABLET. PO PRN (18:15)
[2018-04-03] MEDS: ATORVASTATIN CALCIUM 20 MG TABLET PO SCH (20:15)
[2018-04-03] MEDS: MELATONIN 3 MG TABLET PO SCH (20:16)
[2018-04-04] VITALS (7 sets, daily range): BP systolic 144–211; BP diastolic 72–96
[2018-04-04] MEDS: LEVOTHYROXINE 175 MCG TABLET PO SCH (08:05)
[2018-04-04] MEDS: PANTOPRAZOLE 40 MG TABLET. PO SCH (08:05)
[2018-04-04] MEDS: CARVEDILOL 6.25 MG TABLET PO SCH (08:34)
[2018-04-04] MEDS: LACTOBACILLUS RHAMNOSUS GG 1 CAPSULE. PO SCH ×2 (08:34→22:13)
[2018-04-04] MEDS: ASPIRIN 81 MG TAB.CHEW PO SCH (08:34)
[2018-04-04] MEDS: OMEGA-3 FATTY ACIDS/FISH OIL 1,000 MG CAPSULE. PO SCH (08:35)
[2018-04-04] MEDS: metroNIDAZOLE 500 MG TABLET PO SCH ×3 (08:35→16:21)
[2018-04-04] MEDS: APIXABAN 2.5 MG TABLET PO SCH ×2 (08:35→22:15)
[2018-04-04] MEDS: POTASSIUM CHLORIDE 20 MEQ TABLET.ER. PO SCH ×4 (08:36→21:00)
[2018-04-04] MEDS: MULTIVITAMIN with MINERAL TABLET. PO SCH (08:36)
[2018-04-04] MEDS: amLODIPine BESYLATE 10 MG TABLET PO SCH (08:36)
[2018-04-04] MEDS: PARoxetine 20 MG TABLET PO SCH (08:36)
[2018-04-04] MEDS: CHOLECALCIFEROL (VITAMIN D3) 1,000 UNIT TABLET PO SCH (08:37)
[2018-04-04] MEDS: hydrALAZINE 20 MG/ML VIAL. IV PRN (08:38)
[2018-04-04] MEDS: CARVEDILOL 12.5 MG TABLET PO SCH ×2 (09:00→17:49)
--- NOTE | 2018-04-04 09:00 | PDOC ---
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 Amlodipine has been increased, Coreg started and increased, Florinef has been stopped. Plan for renal artery Doppler and consider adding Aldactone - resistant add diuretic and will help with her potassium depletion. Hypokalemia - continue to supplement Coronary arteriosclerosis in [place] artery S/p coronary artery bypass grafting - At this point she is asymptomatic. Will continue medical therapy. Atrial fibrillation, paroxysmal. She currently is in sinus rhythm. Her [id number] score is elevated at 7 and she is taking Eliquis for anticoagulation. Mixed hyperlipidemia- continue current medications. History of cerebrovascular accident Carotid artery stenosis status post carotid endarterectomy Chronic kidney disease stage 3 - Stable with a GFR of 34. continue to follow Subjective Her blood pressure continues to be elevated. Son at bedside helping her to eat. He says she has a history of kidney disease and repeat er visits for low potassium. She denies any chest pain or palpitations. Just feeling weak and hungry. Objective Vital Signs Date Time Temp Pulse Resp B/P (MAP) Pulse Ox O2 Delivery O2 Flow Rate FiO2 04/04/18 08:21 97.9 99 20 201/95 (130) 99 Room Air Intake and Output 04/04/18 07:00 Intake Total 1000 ml Balance 1000 ml Intake Oral 1000 ml # Voids 9 # Bowel Movements 2 Abdomen: Normal bowel sounds, Soft, No tenderness Heart: Regular rate, Normal S1, Normal S2, Other (+systolic ) Extremities: No edema, Normal pulses General: Alert, Oriented X3, Cooperative Lungs: Clear to auscultation Psych/Mental Status: Mental status NL, Mood NL Review of Relevant I have reviewed the following items manny (where applicable) has been applied. Labs Laboratory Tests Test 04/03/18 06:27 04/03/18 12:10 White Blood Count 10.2 x10^3/uL (4.0-11.0) Red Blood Count 4.75 x10^6/uL (3.50-5.40) Hemoglobin 14.5 g/dL (12.0-15.5) Hematocrit 42.2 % (36.0-47.0) Mean Corpuscular Volume 89 fL (79-100) Mean Corpuscular Hemoglobin 30 pg (25-35) Mean Corpuscular Hemoglobin Concent 34 g/dL (31-37) Red Cell Distribution Width 16.8 % (11.5-14.5) Platelet Count 376 x10^3/uL (140-400) Neutrophils (%) (Auto) 79 % (31-73) Lymphocytes (%) (Auto) 10 % (24-48) Monocytes (%) (Auto) 11 % (0-9) Eosinophils (%) (Auto) 0 % (0-3) Basophils (%) (Auto) 0 % (0-3) Neutrophils # (Auto) 8.0 x10^3uL (1.8-7.7) Lymphocytes # (Auto) 1.1 x10^3/uL (1.0-4.8) Monocytes # (Auto) 1.1 x10^3/uL (0.0-1.1) Eosinophils # (Auto) 0.0 x10^3/uL (0.0-0.7) Basophils # (Auto) 0.0 x10^3/uL (0.0-0.2) Sodium Level 129 mmol/L (136-145) Potassium Level 3.3 mmol/L (3.5-5.1) Chloride Level 97 mmol/L (98-107) Carbon Dioxide Level 19 mmol/L (21-32) Anion Gap 13 (6-14) Blood Urea Nitrogen 21 mg/dL (7-20) Creatinine 1.6 mg/dL (0.6-1.0) Estimated GFR (Cockcroft-Gault) 31.7 BUN/Creatinine Ratio 13 (6-20) Glucose Level 147 mg/dL (70-99) Calcium Level 8.4 mg/dL (8.5-10.1) Total Bilirubin 0.3 mg/dL (0.2-1.0) Aspartate Amino Transf (AST/SGOT) 31 U/L (15-37) Alanine Aminotransferase (ALT/SGPT) 25 U/L (14-59) Alkaline Phosphatase 66 U/L (46-116) Total Protein 7.1 g/dL (6.4-8.2) Albumin 2.3 g/dL (3.4-5.0) Albumin/Globulin Ratio 0.5 (1.0-1.7) Thyroid Stimulating Hormone (TSH) 2.296 uIU/mL (0.358-3.740) D-Dimer (Lissy) 5.84 mg/L (0.00-0.50) Medications Current Medications Labetalol HCl (Normodyne) 20 mg 1X ONCE IVP Last administered on 03/31/18 12: 24; Start 03/31/18 at 12:30; Stop 03/31/18 at 12:31; Status DC Potassium Chloride (Klor-Con) 40 meq 1X ONCE PO Last administered on 13:11; Start 03/31/18 at 13:30; Stop 03/31/18 at 13:31; Status DC Furosemide (Lasix) 40 mg 1X ONCE IVP Last administered on 03/31/18 13:10; Start 03/31/18 at 13:30; Stop 03/31/18 at 13:31; Status DC Levothyroxine Sodium (Synthroid) 175 mcg DAILYAC PO Last administered on 08:05; Start 04/01/18 at 07:30 Amlodipine Besylate (Norvasc) 5 mg DAILYBFRSUP PO Last administered on 17:06; Start 04/01/18 at 17:00; Stop 04/02/18 at 14:32; Status DC Apixaban (Eliquis) 2.5 mg BID PO Last administered on 04/03/18 20:15; Start at 21:00 Aspirin (Children'S Aspirin) 81 mg DAILYWBKFT PO Last administered on 08:34; Start 04/01/18 at 08:00 Atorvastatin Calcium (Lipitor) 80 mg QHS PO Last administered on 04/03/18 20: 15; Start 03/31/18 at 21:00 Vitamin D (Vitamin D3) 1,000 unit DAILY PO Last administered on 04/03/18 08:34 ; Start 04/01/18 at 09:00 Fish Oil (Fish Oil) 1,000 mg DAILY PO Last administered on 04/03/18 08:34; Start 04/01/18 at 09:00 Metronidazole (Flagyl) 500 mg TID PO Last administered on 04/03/18 20:15; Start 03/31/18 at 21:00; Stop 04/04/18 at 20:59 Multivitamins/ Calcium (Thera-M Plus) 1 tab DAILY PO Last administered on 08:34; Start 04/01/18 at 09:00 Pantoprazole Sodium (Protonix) 40 mg DAILYAC PO Last administered on 04/04/18 08:05; Start 04/01/18 at 07:30 Paroxetine HCl (Paxil) 20 mg DAILY PO Last administered on 04/03/18 08:34; Start 04/01/18 at 09:00 Phenytoin Sodium (Dilantin) 300 mg DAILYBFRSUP PO Last administered on 17:27; Start 04/01/18 at 17:00 Potassium Chloride (Klor-Con) 20 meq TID PO Last administered on 04/03/18 20: 15; Start 03/31/18 at 21:00 Lactobacillus Rhamnosus (Culturelle) 1 cap BID PO Last administered on 20:16; Start 03/31/18 at 21:00 Amlodipine Besylate (Norvasc) 10 mg 1X ONCE PO Last administered on 03/31/18 22:33; Start 03/31/18 at 23:00; Stop 03/31/18 at 23:01; Status DC Acetaminophen (Tylenol) 650 mg PRN Q6HRS PRN PO PAIN / TEMP; Start 03/31/18 at 22:30 Clonidine HCl (Catapres) 0.1 mg 1X ONCE PO Last administered on 04/01/18at 08: 45; Start 04/01/18 at 08:30; Stop 04/01/18 at 08:37; Status DC Clonidine HCl (Catapres) 0.1 mg PRN 1X PRN PO HYPERTENSION, SEE COMMENTS Last administered on 04/01/18 10:14; Start 04/01/18 at 09:00 Amlodipine Besylate (Norvasc) 10 mg 1X ONCE PO Last administered on 04/01/18at 10:48; Start 04/01/18 at 11:00; Stop 04/01/18 at 11:01; Status DC Carvedilol (Coreg) 3.125 mg BIDWMEALS PO Last administered on 04/01/18at 12:09; Start 04/01/18 at 12:00; Stop 04/01/18 at 14:53; Status DC Potassium Chloride (KCl Oral Soln) 40 meq Q4H FT Last administered on at 12:09; Start 04/01/18 at 12:00; Stop 04/01/18 at 16:01; Status DC Hydralazine HCl (Apresoline) 10 mg PRN Q6HRS PRN IV ELEVATED BP, SEE COMMENTS Last administered on 04/03/18at 23:20; Start 04/01/18 at 15:00 Carvedilol (Coreg) 3.125 mg 1X ONCE PO Last administered on 04/01/18at 15:11; Start 04/01/18 at 15:00; Stop 04/01/18 at 15:02; Status DC Carvedilol (Coreg) 6.25 mg BIDWMEALS PO Last administered on 04/03/18at 17:27; Start 04/01/18 at 17:00 Info (Non-Icu Electrolyte Protocol) 1 ea CONT PRN PRN MC PER PROTOCOL; Start at 19:15 Ondansetron HCl (Zofran) 4 mg PRN Q6HRS PRN IV NAUSEA/VOMITING Last administered on 04/03/18at 06:11; Start 04/02/18 at 11:00; Stop 04/03/18 at 14:12 ; Status DC Amlodipine Besylate (Norvasc) 10 mg DAILY PO Last administered on 04/03/18at 06: 08; Start 04/02/18 at 14:30 Sodium Chloride 1,000 ml @ 200 mls/hr Q5H IV Last administered on 04/02/18at 18 :13; Start 04/02/18 at 17:14; Stop 04/02/18 at 22:13; Status DC Promethazine HCl 25 mg/Sodium Chloride 51 ml @ 101 mls/hr PRN Q6HRS PRN IV NAUSEA/VOMITING Last administered on 04/03/18at 11:42; Start 04/02/18 at 17:30 Potassium Chloride (Klor-Con) 40 meq 1X ONCE PO Last administered on at 08:33; Start 04/03/18 at 07:30; Stop 04/03/18 at 07:37; Status DC Promethazine HCl (Phenergan) 25 mg STK-MED ONCE IV Last administered on at 11:24; Start 04/03/18 at 11:24; Stop 04/03/18 at 11:26; Status DC Sodium Chloride 1,000 ml @ 1,000 mls/hr Q1H IV Last administered on 04/03/18at 14:29; Start 04/03/18 at 11:38; Stop 04/03/18 at 12:37; Status DC Sodium Chloride 1,000 ml @ 150 mls/hr Q6H40M IV Last administered on at 11:38; Start 04/03/18 at 11:38; Stop 04/03/18 at 18:17; Status DC Prochlorperazine Edisylate (Compazine) 5 mg 1X ONCE IV ; Start 04/03/18 at 12: 00; Stop 04/03/18 at 12:01; Status DC Ondansetron HCl (Zofran) 8 mg PRN Q6HRS PRN IV NAUSEA/VOMITING; Start 04/03/18 at 14:00 Prochlorperazine Edisylate (Compazine) 10 mg PRN Q6HRS PRN IV NAUSEA/VOMITING Last administered on 04/03/18at 20:07; Start 04/03/18 at 14:00 Melatonin 3 mg HS PO Last administered on 04/03/18at 20:16; Start 04/03/18 at 21 :00 Zolpidem Tartrate (Ambien) 5 mg PRN QHS PRN PO INSOMNIA Last administered on at 20:16; Start 04/03/18 at 18:15 Active Scripts Active Reported Multi Vitamin Daily (Multivitamin) 1 Each Tablet 1 Tab PO DAILY Vitamin D (Cholecalciferol (Vitamin D3)) 1,000 Unit Capsule 1 Cap PO DAILY Max 3-6-9 1,200 mg Softgel (Fish Oil/Borage/Flax/Om3,6,9#1) 1,200 Mg Capsule 1 ,200 Mg PO DAILY Aspirin 81 Mg Tab.chew 81 Mg PO DAILY Atorvastatin Calcium 80 Mg Tablet 1 Tab PO HS Levothyroxine Sodium 175 Mcg Tablet 1 Tab PO DAILY Paroxetine Hcl 20 Mg Tablet 1 Tab PO DAILY K-Tab ER (Potassium Chloride) 20 Meq Tablet.er 1 Tab PO TID Fludrocortisone Acetate 0.1 Mg Tablet 1 Tab PO DAILY Metronidazole 500 Mg Tablet 1 Tab PO TID Eliquis (Apixaban) 5 Mg Tablet 0.5 Tab PO BID Phenytoin Sodium Extended 100 Mg Capsule 3 Cap PO DAILYBFRSUP Omeprazole 40 Mg Capsule.dr 1 Cap PO BID Amlodipine Besylate 5 Mg Tablet 1 Tab PO DAILYBFRSUP Vitals/I & O Vital Sign - Last 24 Hours 04/03/18 04/03/18 04/03/18 04/03/18 08:34 08:35 10:06 10:13 Temp 97.8 Pulse 109 109 114 113 Resp 18 B/P (MAP) 207/108 207/108 100/65 (77) 146/77 (100) Pulse Ox 97 O2 Delivery Room Air 04/03/18 04/03/18 04/03/18 04/03/18 15:35 15:38 17:27 19:57 Temp 98.1 Pulse 104 104 104 Resp 18 B/P (MAP) 201/95 (130) 201/95 201/95 Pulse Ox 98 O2 Delivery Room Air Room Air 04/03/18 04/03/18 04/03/18 04/04/18 20:08 23:17 23:20 05:57 Temp 97.8 97.9 97.5 Pulse 98 90 90 96 Resp 20 20 20 B/P (MAP) 185/78 (113) 184/88 (120) 184/88 186/96 (126) Pulse Ox 97 96 100 04/04/18 08:21 Temp 97.9 Pulse 99 Resp 20 B/P (MAP) 201/95 (130) Pulse Ox 99 O2 Delivery Room Air Intake and Output 04/03/18 04/03/18 04/04/18 15:00 23:00 07:00 Intake Total 240 ml 640 ml 120 ml Balance 240 ml 640 ml 120 ml MAYCOL ORELLANA Jr, MD 04/04/18 0924: PROGRESS NOTES Assessment Essential hypertension. Blood pressure remains elevated. Will increase Coreg and add Spironolactone. Will need to watch potassium level. Check renal artery ultrasound to screen for renal artery stenosis. Coronary artery disease. She is not having angina. Continue beta shivam and statin. May want to consider stopping Aspirin since she is on Eliquis for the atrial fibrillation. Atrial fibrillation, paroxysmal. She remains in sinus. Continue Eliquis for stroke prevention. Mixed hyperlipidemia. Continue statin. Subjective We are seeing her for hypertension. S: Nausea improved. Denies abdominal pain. Denies chest pain, dyspnea, palpitations, syncope, ankle edema. Abdomen: Normal bowel sounds, Soft, No tenderness Heart: Regular rate, Normal S1, Normal S2, Other (1/6 systolic ejection murmur. ) Extremities: No clubbing, No cyanosis, No edema, Normal pulses, No tenderness/ swelling General: Alert, Oriented X3, Cooperative, No acute distress HEENT: Atraumatic, EOMI, Mucous membr. moist/pink Lungs: Clear to auscultation, Normal air movement Neck: No JVD, +2 carotid pulse wo bruit Neuro: Normal speech, Strength at 5/5 X4 ext, Normal tone, Cranial nerves 3-12 NL Psych/Mental Status: Mental status NL, Mood NL Skin: No rashes, No breakdown, No significant lesion YOSI PRESTON APRN Apr 04, 2018 09:00 MAYCOL ORELLANA Jr, MD Apr 04, 2018 09:24
[2018-04-04 09:21] LABS: CALCIUM 7.5 mg/dL (8.5-10.1); CREATININE 1.7 mg/dL (0.6-1.0); GFR 29.5
[2018-04-04] MEDS ORDERED: CARVEDILOL 6.25 MG TABLET PO ONE (11:00)
[2018-04-04] MEDS: SPIRONOLACTONE 25 MG TABLET PO SCH (12:04)
--- NOTE | 2018-04-04 13:32 | PN ---
DATE: 04/04/2018 SUBJECTIVE: The patient is resting, slightly propped up in bed, no apparent distress. She is awake, alert. On questioning her, denied any nausea or vomiting. Denied any abdominal pain. Denied any shortness of breath, dizziness, lightheadedness, or vertigo. She apparently has been up and about and to the bathroom without any problem. She was seen by the shoe shiner who apparently increased her Coreg and amlodipine and was started also on spironolactone and potassium supplement. She is scheduled for renal artery duplex, received a renal artery stenosis ____ hypertension. PHYSICAL EXAMINATION: GENERAL: When I examined her this afternoon, she looked well and was clearly in no apparent respiratory distress. She has no pallor, jaundice, cyanosis, or thyromegaly. No jugular venous distension. No lower limb edema. VITAL SIGNS: Her heart rate was 91, blood pressure was 144/72, temperature was 98.3, respiratory rate 20, and oxygen saturation was 96% on room air. HEAD, EYES, EARS, NOSE AND THROAT: Normocephalic, atraumatic. NECK: Supple. HEART: Showed normal first and second sounds. No gallop, rub or murmur. CHEST: Clear to auscultation. No crepitation or rhonchi. ABDOMEN: Scaphoid, soft, nontender. NEUROLOGIC: She is awake, alert, responds appropriately. She does have expressive aphasia and right-sided hemiplegia. Her intake over the last 24 hours was 1000. No output was recorded. LABORATORY DATA: Her lab work as of yesterday showed a white cell count of 10,000, hemoglobin 14.5, hematocrit 42, MCV 89 and platelet count of 376,000. Her chemistry showed her serum sodium is down to 124, potassium 3, chloride 96, bicarbonate 19, and anion gap of 9, BUN 17, creatinine 1.7, estimated GFR was 29 mL per minute. Her glucose was 218 and calcium was 7.5. Her D-dimer was high at 5.84. IMPRESSION: 1. Accelerated hypertension, now on amlodipine 10 mg once a day and Coreg 12.5 mg twice a day. She was also started on spironolactone, and she is on potassium supplement at 20 mEq 3 times a day, hyponatremia steadily worsening although some of her potassium is probably falsely low because of hyperglycemia. Her blood sugar is 218. Hypokalemia with serum potassium of 3. 2. She has chronic kidney disease with a creatinine of 1.7. 3. Other issues include atrial fibrillation, currently in sinus rhythm, well anticoagulated on Eliquis, mixed hyperlipidemia for which she is on atorvastatin calcium 80 mg at bedtime. 4. Coronary artery disease status post coronary bypass graft surgery. The patient is asymptomatic as she is chest pain free and clinically is not in heart failure. 5. Cerebrovascular accident 6. She has a total occlusion of the ____ carotid artery endarterectomy. 7. Chronic kidney disease, stable. PLAN: My plan is to start her on normal saline with potassium and await the result of the Doppler ultrasound. I will check her labs this afternoon and again tomorrow morning. JAMILA WOOD MD DR: EVELIN/rj JOB#: [id number] / [id number]
[2018-04-04] MEDS: PHENYTOIN SODIUM EXTENDED 100 MG CAPSULE PO SCH (17:48)
[2018-04-04] MEDS: POTASSIUM CL 20MEQ IN 0.9%NACL 1,000 ML IV SCH (17:50)
[2018-04-04 21:17] LABS: CALCIUM 7.6 mg/dL (8.5-10.1); CREATININE 1.6 mg/dL (0.6-1.0); GFR 31.7
[2018-04-04 21:27] LABS: POTASSIUM 2.8 mmol/L (3.5-5.1)
[2018-04-04] MEDS ORDERED: POTASSIUM CHLORIDE 20 MEQ TABLET.ER. PO ONE (21:30)
[2018-04-04] MEDS: ATORVASTATIN CALCIUM 20 MG TABLET PO SCH (22:13)
[2018-04-04] MEDS: MELATONIN 3 MG TABLET PO SCH (22:13)
[2018-04-05] MEDS: POTASSIUM CL 20MEQ IN 0.9%NACL 1,000 ML IV SCH ×2 (03:21→22:18)
[2018-04-05 06:09] VITALS: BP 218/104
[2018-04-05 06:33] LABS: CALCIUM 8.2 mg/dL (8.5-10.1); CREATININE 1.4 mg/dL (0.6-1.0); POTASSIUM 3.1 mmol/L (3.5-5.1)
[2018-04-05] MEDS: ASPIRIN 81 MG TAB.CHEW PO SCH (08:32)
[2018-04-05] MEDS: LEVOTHYROXINE 175 MCG TABLET PO SCH (08:32)
[2018-04-05] MEDS: PANTOPRAZOLE 40 MG TABLET. PO SCH (08:32)
[2018-04-05] MEDS: CARVEDILOL 12.5 MG TABLET PO SCH (08:33)
[2018-04-05] MEDS: SPIRONOLACTONE 25 MG TABLET PO SCH ×2 (08:33→17:46)
[2018-04-05] MEDS: POTASSIUM CHLORIDE 20 MEQ TABLET.ER. PO SCH ×3 (08:34→22:15)
[2018-04-05] MEDS: APIXABAN 2.5 MG TABLET PO SCH ×2 (08:34→22:15)
[2018-04-05] MEDS: OMEGA-3 FATTY ACIDS/FISH OIL 1,000 MG CAPSULE. PO SCH (08:34)
[2018-04-05] MEDS: MULTIVITAMIN with MINERAL TABLET. PO SCH (08:35)
[2018-04-05] MEDS: CHOLECALCIFEROL (VITAMIN D3) 1,000 UNIT TABLET PO SCH (08:35)
[2018-04-05] MEDS: amLODIPine BESYLATE 10 MG TABLET PO SCH (08:35)
[2018-04-05] MEDS: PARoxetine 20 MG TABLET PO SCH (08:35)
[2018-04-05] MEDS: LACTOBACILLUS RHAMNOSUS GG 1 CAPSULE. PO SCH ×2 (08:37→22:15)
--- NOTE | 2018-04-05 08:38 | RAD ---
Deep Doppler renal ultrasound, 04/04/2018: HISTORY: Resistant hypertension Duplex evaluation of the main renal arteries was attempted including grayscale, color-flow and spectral Doppler analysis. The peak systolic velocities in the right main renal artery range from 33 to 44 cm/s. No elevated right renal artery velocities or parvus/tardus phenomena is seen to suggest significant renal artery stenosis. The left renal arterial vasculature was not adequately visualized due to overlying bowel. The right kidney measures 9.9 cm in length while the left kidney measures 8.2 cm. IMPRESSION: 1. No duplex evidence of significant right renal artery stenosis. 2. Nonvisualization of the left renal artery due to overlying bowel. CT angiography may be useful for further evaluation, if clinically indicated. Electronically signed by: Bautista Pederson MD (04/05/2018 8:34 AM) [facility]
[2018-04-05 11:00] VITALS: BP 167/89
--- NOTE | 2018-04-05 15:30 | PDOC ---
YOSI MADISON HORSE RACING MANAGER 04/05/18 1530: PROGRESS NOTES Diagnosis Problem Problems Medical Problems: (1) Elevated brain natriuretic peptide (BNP) level Status: Acute (2) Hypertensive urgency Status: Acute (3) Hypokalemia Status: Acute Assessment We are seeing the patient for Accelerated hypertension Accelerated hypertension -at this point her blood pressure remains very resistant to oral medication. It did come down into the 140 range after IV hydralazine yesterday. We have increased both Amlodipine and Coreg And added Aldactone without seeing a change in pressure. Florinef has been stopped. the renal artery duplex was unable to tell if there was stenosis of the left renal artery. After discussing with Dr. Torres and Dr. Blanco we decided to transfer her to [facility] for an MRA of her renal arteries and plan for Nephrology and Endocrinology to see her. Hypokalemia - continue to supplement, Nephrology consult. Coronary arteriosclerosis in [place] artery S/p coronary artery bypass grafting - At this point she is asymptomatic. Will continue medical therapy. Atrial fibrillation, paroxysmal. She currently is in sinus rhythm. Her [id number] score is elevated at 7 and she is taking Eliquis for anticoagulation. Mixed hyperlipidemia- continue current medications. History of cerebrovascular accident Carotid artery stenosis status post carotid endarterectomy Chronic kidney disease stage 3 - Stable with a GFR of 34. continue to follow Subjective Last night she slept well and had a good breakfast this morning. She has not had any problems with any chest pain, shortness of breath or palpitations. We discussed plan of care and benefits of transferring to [facility] and getting support from Nephrology and Endocrinology. I also talked with her by phone and her son who is at bedside and they are both agreeable to the plan. Objective Vital Signs Date Time Temp Pulse Resp B/P (MAP) Pulse Ox O2 Delivery O2 Flow Rate FiO2 04/05/18 11:00 98.2 69 18 167/89 (115) 98 Room Air Intake and Output 04/05/18 07:01 Intake Total 1235 ml Balance 1235 ml Intake Oral 460 ml IV Total 775 ml # Voids 11 # Bowel Movements 2 Abdomen: Normal bowel sounds, Soft, No tenderness Heart: Regular rate, Normal S1, Normal S2 Extremities: No edema, Normal pulses General: Alert, Oriented X3, Cooperative Lungs: Clear to auscultation Psych/Mental Status: Mental status NL Review of Relevant I have reviewed the following items manny (where applicable) has been applied. Labs Laboratory Tests Test 04/04/18 09:07 04/04/18 21:04 04/05/18 06:08 Sodium Level 124 mmol/L (136-145) 126 mmol/L (136-145) 127 mmol/L (136-145) Potassium Level 3.0 mmol/L (3.5-5.1) 2.8 mmol/L (3.5-5.1) 3.1 mmol/L (3.5-5.1) Chloride Level 96 mmol/L (98-107) 97 mmol/L (98-107) 97 mmol/L (98-107) Carbon Dioxide Level 19 mmol/L (21-32) 23 mmol/L (21-32) 22 mmol/L (21-32) Anion Gap 9 (6-14) 6 (6-14) 8 (6-14) Blood Urea Nitrogen 17 mg/dL (7-20) 20 mg/dL (7-20) 15 mg/dL (7-20) Creatinine 1.7 mg/dL (0.6-1.0) 1.6 mg/dL (0.6-1.0) 1.4 mg/dL (0.6-1.0) Estimated GFR (Cockcroft-Gault) 29.5 31.7 37.0 Glucose Level 218 mg/dL (70-99) 84 mg/dL (70-99) 123 mg/dL (70-99) Calcium Level 7.5 mg/dL (8.5-10.1) 7.6 mg/dL (8.5-10.1) 8.2 mg/dL (8.5-10.1) Cortisol AM Sample 35.42 ug/dL (4.3-22.4) Medications Current Medications Labetalol HCl (Normodyne) 20 mg 1X ONCE IVP Last administered on 03/31/18at 12: 24; Start 03/31/18 at 12:30; Stop 03/31/18 at 12:31; Status DC Potassium Chloride (Klor-Con) 40 meq 1X ONCE PO Last administered on at 13:11; Start 03/31/18 at 13:30; Stop 03/31/18 at 13:31; Status DC Furosemide (Lasix) 40 mg 1X ONCE IVP Last administered on 03/31/18 13:10; Start 03/31/18 at 13:30; Stop 03/31/18 at 13:31; Status DC Levothyroxine Sodium (Synthroid) 175 mcg DAILYAC PO Last administered on 08:32; Start 04/01/18 at 07:30 Amlodipine Besylate (Norvasc) 5 mg DAILYBFRSUP PO Last administered on 17:06; Start 04/01/18 at 17:00; Stop 04/02/18 at 14:32; Status DC Apixaban (Eliquis) 2.5 mg BID PO Last administered on 04/05/18 08:34; Start at 21:00 Aspirin (Children'S Aspirin) 81 mg DAILYWBKFT PO Last administered on 08:32; Start 04/01/18 at 08:00 Atorvastatin Calcium (Lipitor) 80 mg QHS PO Last administered on 04/04/18 22: 13; Start 03/31/18 at 21:00 Vitamin D (Vitamin D3) 1,000 unit DAILY PO Last administered on 04/05/18 08:35 ; Start 04/01/18 at 09:00 Fish Oil (Fish Oil) 1,000 mg DAILY PO Last administered on 04/05/18 08:34; Start 04/01/18 at 09:00 Metronidazole (Flagyl) 500 mg TID PO Last administered on 04/04/18 08:35; Start 03/31/18 at 21:00; Stop 04/04/18 at 20:59; Status DC Multivitamins/ Calcium (Thera-M Plus) 1 tab DAILY PO Last administered on 08:35; Start 04/01/18 at 09:00 Pantoprazole Sodium (Protonix) 40 mg DAILYAC PO Last administered on 04/05/18 08:32; Start 04/01/18 at 07:30 Paroxetine HCl (Paxil) 20 mg DAILY PO Last administered on 04/05/18 08:35; Start 04/01/18 at 09:00 Phenytoin Sodium (Dilantin) 300 mg DAILYBFRSUP PO Last administered on 6/25/ 18at 17:48; Start 04/01/18 at 17:00 Potassium Chloride (Klor-Con) 20 meq TID PO Last administered on 04/05/18at 08: 34; Start 03/31/18 at 21:00; Stop 04/05/18 at 10:55; Status DC Lactobacillus Rhamnosus (Culturelle) 1 cap BID PO Last administered on at 08:37; Start 03/31/18 at 21:00 Amlodipine Besylate (Norvasc) 10 mg 1X ONCE PO Last administered on 03/31/18at 22:33; Start 03/31/18 at 23:00; Stop 03/31/18 at 23:01; Status DC Acetaminophen (Tylenol) 650 mg PRN Q6HRS PRN PO PAIN / TEMP; Start 03/31/18 at 22:30 Clonidine HCl (Catapres) 0.1 mg 1X ONCE PO Last administered on 04/01/18at 08: 45; Start 04/01/18 at 08:30; Stop 04/01/18 at 08:37; Status DC Clonidine HCl (Catapres) 0.1 mg PRN 1X PRN PO HYPERTENSION, SEE COMMENTS Last administered on 04/01/18at 10:14; Start 04/01/18 at 09:00; Stop 04/05/18 at 11:16 ; Status DC Amlodipine Besylate (Norvasc) 10 mg 1X ONCE PO Last administered on 04/01/18at 10:48; Start 04/01/18 at 11:00; Stop 04/01/18 at 11:01; Status DC Carvedilol (Coreg) 3.125 mg BIDWMEALS PO Last administered on 04/01/18at 12:09; Start 04/01/18 at 12:00; Stop 04/01/18 at 14:53; Status DC Potassium Chloride (KCl Oral Soln) 40 meq Q4H FT Last administered on at 12:09; Start 04/01/18 at 12:00; Stop 04/01/18 at 16:01; Status DC Hydralazine HCl (Apresoline) 10 mg PRN Q6HRS PRN IV ELEVATED BP, SEE COMMENTS Last administered on 04/04/18at 08:38; Start 04/01/18 at 15:00 Carvedilol (Coreg) 3.125 mg 1X ONCE PO Last administered on 04/01/18at 15:11; Start 04/01/18 at 15:00; Stop 04/01/18 at 15:02; Status DC Carvedilol (Coreg) 6.25 mg BIDWMEALS PO Last administered on 04/04/18at 08:34; Start 04/01/18 at 17:00; Stop 04/04/18 at 08:49; Status DC Info (Non-Icu Electrolyte Protocol) 1 ea CONT PRN PRN MC PER PROTOCOL; Start at 19:15 Ondansetron HCl (Zofran) 4 mg PRN Q6HRS PRN IV NAUSEA/VOMITING Last administered on 04/03/18at 06:11; Start 04/02/18 at 11:00; Stop 04/03/18 at 14:12 ; Status DC Amlodipine Besylate (Norvasc) 10 mg DAILY PO Last administered on 04/05/18at 08: 35; Start 04/02/18 at 14:30 Sodium Chloride 1,000 ml @ 200 mls/hr Q5H IV Last administered on 04/02/18at 18 :13; Start 04/02/18 at 17:14; Stop 04/02/18 at 22:13; Status DC Promethazine HCl 25 mg/Sodium Chloride 51 ml @ 101 mls/hr PRN Q6HRS PRN IV NAUSEA/VOMITING Last administered on 04/03/18at 11:42; Start 04/02/18 at 17:30; Stop 04/05/18 at 11:17; Status DC Potassium Chloride (Klor-Con) 40 meq 1X ONCE PO Last administered on at 08:33; Start 04/03/18 at 07:30; Stop 04/03/18 at 07:37; Status DC Promethazine HCl (Phenergan) 25 mg STK-MED ONCE IV Last administered on at 11:24; Start 04/03/18 at 11:24; Stop 04/03/18 at 11:26; Status DC Sodium Chloride 1,000 ml @ 1,000 mls/hr Q1H IV Last administered on 04/03/18at 14:29; Start 04/03/18 at 11:38; Stop 04/03/18 at 12:37; Status DC Sodium Chloride 1,000 ml @ 150 mls/hr Q6H40M IV Last administered on at 11:38; Start 04/03/18 at 11:38; Stop 04/03/18 at 18:17; Status DC Prochlorperazine Edisylate (Compazine) 5 mg 1X ONCE IV ; Start 04/03/18 at 12: 00; Stop 04/03/18 at 12:01; Status DC Ondansetron HCl (Zofran) 8 mg PRN Q6HRS PRN IV NAUSEA/VOMITING; Start 04/03/18 at 14:00 Prochlorperazine Edisylate (Compazine) 10 mg PRN Q6HRS PRN IV NAUSEA/VOMITING Last administered on 04/03/18at 20:07; Start 04/03/18 at 14:00 Melatonin 3 mg HS PO Last administered on 04/04/18at 22:13; Start 04/03/18 at 21 :00 Zolpidem Tartrate (Ambien) 5 mg PRN QHS PRN PO INSOMNIA Last administered on at 20:16; Start 04/03/18 at 18:15 Carvedilol (Coreg) 12.5 mg BIDWMEALS PO Last administered on 04/05/18at 08:33; Start 04/04/18 at 09:00; Stop 04/05/18 at 11:04; Status DC Spironolactone (Aldactone) 25 mg DAILY PO Last administered on 04/05/18at 08:33 ; Start 04/04/18 at 09:00 Carvedilol (Coreg) 6.25 mg 1X ONCE PO Last administered on 04/04/18at 12:05; Start 04/04/18 at 11:00; Stop 04/04/18 at 11:07; Status DC Potassium Chloride/Sodium Chloride 1,000 ml @ 75 mls/hr [id number] IV Last administered on 04/05/18at 03:21; Start 04/04/18 at 13:15 Potassium Chloride (Klor-Con) 40 meq 1X ONCE PO Last administered on at 22:15; Start 04/04/18 at 21:30; Stop 04/04/18 at 21:32; Status DC Potassium Chloride (Klor-Con) 40 meq TID PO ; Start 04/05/18 at 14:00 Labetalol HCl (Trandate) 200 mg BID PO ; Start 04/05/18 at 21:00 Active Scripts Active Reported Multi Vitamin Daily (Multivitamin) 1 Each Tablet 1 Tab PO DAILY Vitamin D (Cholecalciferol (Vitamin D3)) 1,000 Unit Capsule 1 Cap PO DAILY [place] 3-6-9 1,200 mg Softgel (Fish Oil/Borage/Flax/Om3,6,9#1) 1,200 Mg Capsule 1 ,200 Mg PO DAILY Aspirin 81 Mg Tab.chew 81 Mg PO DAILY Atorvastatin Calcium 80 Mg Tablet 1 Tab PO HS Levothyroxine Sodium 175 Mcg Tablet 1 Tab PO DAILY Paroxetine Hcl 20 Mg Tablet 1 Tab PO DAILY K-Tab ER (Potassium Chloride) 20 Meq Tablet.er 1 Tab PO TID Fludrocortisone Acetate 0.1 Mg Tablet 1 Tab PO DAILY Metronidazole 500 Mg Tablet 1 Tab PO TID Eliquis (Apixaban) 5 Mg Tablet 0.5 Tab PO BID Phenytoin Sodium Extended 100 Mg Capsule 3 Cap PO DAILYBFRSUP Omeprazole 40 Mg Capsule.dr 1 Cap PO BID Amlodipine Besylate 5 Mg Tablet 1 Tab PO DAILYBFRSUP Vitals/I & O Vital Sign - Last 24 Hours 04/04/18 04/04/18 04/04/18 04/04/18 17:49 19:00 20:00 21:11 Temp 97.5 Pulse 96 94 84 Resp 18 18 B/P (MAP) 192/77 179/82 (114) 183/80 (114) Pulse Ox 97 97 O2 Delivery Room Air Room Air Room Air 04/04/18 04/05/18 04/05/18 04/05/18 23:57 06:09 08:00 08:33 Temp 98.2 97.8 Pulse 89 93 93 Resp 18 18 B/P (MAP) 211/90 (130) 218/104 (142) 218/104 Pulse Ox 97 96 O2 Delivery Room Air Room Air Room Air 04/05/18 04/05/18 08:35 11:00 Temp 98.2 Pulse 93 69 Resp 18 B/P (MAP) 218/104 167/89 (115) Pulse Ox 98 O2 Delivery Room Air Intake and Output 04/04/18 04/04/18 04/05/18 15:01 23:01 07:01 Intake Total 120 ml 240 ml 875 ml Balance 120 ml 240 ml 875 ml MAYCOL BLANCO Jr, MD 04/06/18 0613: PROGRESS NOTES Assessment The patient was seen by Yosi Madison APRN and I have reviewed her findings and plan and agree with above. Due to staffing constraints, we did not have an attending available on this day to see the patient. MD MOHAN Dyson Jr., JANAE M APRN Apr 05, 2018 15:30 MAYCOL BLANCO Jr, MD Apr 06, 2018 06:13
[2018-04-05 15:45] VITALS: BP 217/101
[2018-04-05] MEDS: PHENYTOIN SODIUM EXTENDED 100 MG CAPSULE PO SCH (17:46)
[2018-04-05 18:28] VITALS: BP 193/78
[2018-04-05] MEDS: hydrALAZINE 20 MG/ML VIAL. IV PRN (18:30)
--- NOTE | 2018-04-05 18:46 | PN ---
DATE: 04/05/2018 SUBJECTIVE: The patient is resting slightly propped up in bed, in no apparent distress. She surprisingly denied any complaint, in particular denied any headache, denied any shortness of breath or chest pain. Did complain of some nausea, but no vomiting. Unfortunately, her blood pressure continued to be extremely high and I spoke with the nurse practitioner from the [facility] Cardiology team and explained that the patient needs to be transferred to [facility] as she probably something that caused her blood pressure to be high either new onset renal artery stenosis or pheochromocytoma or Conn syndrome and have an MRI and they can do carbon dioxide angiography and that would be much safer for her than doing a CT angio of the renal arteries with contrast given her impaired kidney function. PHYSICAL EXAMINATION: GENERAL: When I examined her this morning, she was resting slightly propped up in bed, in no apparent respiratory distress. No pallor, jaundice, cyanosis or thyromegaly. No jugular venous distention. No limb edema. VITAL SIGNS: Her heart rate was 93, blood pressure was 218/104, temperature was 97.8, respiratory rate was 18, and oxygen saturation was 96%. HEAD, EYES, EARS, NOSE AND THROAT: Showed normocephalic, atraumatic. NECK: Supple. HEART: Showed normal first and second heart sounds with no gallop, rub or murmur. CHEST: Showed central trachea, equal bilateral expansion, air entry, without crepitation or rhonchi. ABDOMEN: Scaphoid, soft, and nontender. No guarding or rigidity. No organomegaly. Hernial orifice intact. Bowel sounds normal. NEUROLOGIC: She is awake, alert and responding appropriately. She does have expressive aphasia and residual right-sided hemiplegia. INTAKE AND OUTPUT: Her intake was 1000 mL. No output was recorded. LABORATORY DATA: This morning showed a serum sodium slightly up at 127, potassium slightly up at 3.1. Her chloride was 97, bicarbonate 22, anion gap of 8, BUN 15, creatinine 1.4, estimated GFR was 37 mL per minute. Her glucose was 123, calcium was 8.2. Her white cell count was 10,000, hemoglobin 14, hematocrit 42, MCV 89, and platelet count of 376,000. ASSESSMENT AND PLAN: 1. Hypertensive urgency. She is now on amlodipine 10 mg once a day. I discontinued her Coreg and start her on labetalol 100 mg 3 times a day as well as spironolactone was added yesterday. 2. Hypokalemia for which she is now on spironolactone, I increased her potassium to 40 mEq 3 times a day. 3. She has chronic kidney disease, her creatinine is slightly down to 1.4. 4. Atrial fibrillation, currently in sinus rhythm, we will anticoagulate on Eliquis. 5. Mixed hyperlipidemia, for which he is on atorvastatin calcium 80 mg at bedtime. 6. Coronary artery disease, status post coronary artery bypass graft surgery. The patient is asymptomatic and chest pain free and clinically, she is not in heart failure. 7. Cerebrovascular accident with right-sided hemiplegia and expressive aphasia. 8. 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 My plan is to continue with the normal saline and potassium supplement. She did have Doppler ultrasound, which showed no duplex evidence of significant right renal artery stenosis with nonvisualization of the left renal artery due to overlying bowel. CT angiography may be useful for further evaluation if clinically indicated. We have contacted [facility]. Apparently, they have no beds available this morning, but I will keep trying and I will switch her to labetalol 100 mg 3 times a day and monitor her blood pressure accordingly and we can use also hydralazine and once the bed available, she needs to be transferred to a higher level of care as she probably needs either MRA of the renal arteries or an angiogram done by carbon dioxide, which is safer in patient with chronic kidney disease. She needs to be evaluated by hand ii cutter as well as tile and marble installer for possible rare causes of malignant hypertension likely pheochromocytoma and Conn's syndrome. JAMILA WOOD MD DR: EVELIN/rj JOB#: [id number] / [id number]
[2018-04-05 19:00] VITALS: BP 161/74
[2018-04-05] MEDS: MELATONIN 3 MG TABLET PO SCH (22:14)
[2018-04-05] MEDS: ATORVASTATIN CALCIUM 20 MG TABLET PO SCH (22:15)
[2018-04-05] MEDS: LABETALOL HCL 200 MG TABLET PO SCH (22:18)
[2018-04-05 23:00] VITALS: BP 150/83
[2018-04-06 05:59] VITALS: BP 126/72
[2018-04-06] MEDS: CHOLECALCIFEROL (VITAMIN D3) 1,000 UNIT TABLET PO SCH (08:44)
[2018-04-06] MEDS: PANTOPRAZOLE 40 MG TABLET. PO SCH (08:44)
[2018-04-06] MEDS: MULTIVITAMIN with MINERAL TABLET. PO SCH (08:44)
[2018-04-06] MEDS: LACTOBACILLUS RHAMNOSUS GG 1 CAPSULE. PO SCH (08:44)
[2018-04-06] MEDS: LEVOTHYROXINE 175 MCG TABLET PO SCH (08:44)
[2018-04-06] MEDS: OMEGA-3 FATTY ACIDS/FISH OIL 1,000 MG CAPSULE. PO SCH (08:44)
[2018-04-06] MEDS: APIXABAN 2.5 MG TABLET PO SCH (08:44)
[2018-04-06] MEDS: ASPIRIN 81 MG TAB.CHEW PO SCH (08:44)
[2018-04-06] MEDS: LABETALOL HCL 200 MG TABLET PO SCH (08:45)
[2018-04-06] MEDS: SPIRONOLACTONE 25 MG TABLET PO SCH (08:45)
[2018-04-06] MEDS: amLODIPine BESYLATE 10 MG TABLET PO SCH (08:45)
[2018-04-06] MEDS: POTASSIUM CHLORIDE 20 MEQ TABLET.ER. PO SCH ×2 (08:45→13:32)
[2018-04-06] MEDS: PARoxetine 20 MG TABLET PO SCH (08:45)
[2018-04-06 09:37] LABS: CALCIUM 7.7 mg/dL (8.5-10.1); CREATININE 1.9 mg/dL (0.6-1.0); POTASSIUM 3.8 mmol/L (3.5-5.1)
[2018-04-06 11:14] VITALS: BP 148/61
[2018-04-06 11:18] VITALS: BP 119/59
[2018-04-06 11:19] VITALS: BP 91/66
[2018-04-06] MEDS: POTASSIUM CL 20MEQ IN 0.9%NACL 1,000 ML IV SCH (13:20)
--- NOTE | 2018-04-06 13:28 | PDOC ---
YOSI PRESTON SHOT POLISHER 04/06/18 1328: PROGRESS NOTES Diagnosis Problem Problems Medical Problems: (1) Elevated brain natriuretic peptide (BNP) level Status: Acute (2) Hypertensive urgency Status: Acute (3) Hypokalemia Status: Acute Assessment Problems We are seeing the patient for Accelerated hypertension Accelerated hypertension - Improved with changing coreg to labetalol. She recived two doses of Hydralazine yesterday but has not required today. She is on Amlodipine 10, Labatolol 200 BID and Aldactone 50 daily. Her resting blood pressures have been in the 120 - 140 range today. She is scheduled for an OP renal consult in April. 24 hour urine is in progress. Serum sortisol level is elevated Orthostatic hypotension - on fluids and will add compression socks. Physical therapy. Protein supplement. Albumin 2.3 Hypokalemia - On oral and IV supplement and Aldactone 50 qd. She is back to having diarrhea today Coronary arteriosclerosis in [place] artery S/p coronary artery bypass grafting - At this point she is asymptomatic. Will continue medical therapy. Atrial fibrillation, paroxysmal. She currently is in sinus rhythm. Her [id number] score is elevated at 7 and she is taking Eliquis for anticoagulation. Mixed hyperlipidemia- continue current medications. History of cerebrovascular accident Carotid artery stenosis status post carotid endarterectomy Chronic kidney disease stage 3 Creatine up to 1.9 with stable BUN Protein calorie malnutrition - albumin down to 2.3 - Dietary consult. Likely contributing to orthostasis. Subjective She is weak and dizzy when she stands and feels like she is going to fall. Denies chest pain and shortness of breath. 3 episodes of diarrhea today. Objective Vital Signs Date Time Temp Pulse Resp B/P (MAP) Pulse Ox O2 Delivery O2 Flow Rate FiO2 04/06/18 11:19 62 91/66 (74) 04/06/18 11:14 97.6 20 98 Room Air Intake and Output 04/06/18 07:00 Intake Total 2537 ml Balance 2537 ml Intake Oral 2120 ml IV Total 417 ml # Voids 10 # Bowel Movements 1 Abdomen: Normal bowel sounds, Soft, No tenderness Heart: Regular rate, Normal S1, Normal S2, No murmurs Extremities: No edema, Normal pulses General: Alert, Oriented X3, Cooperative HEENT: EOMI, Mucous membr. moist/pink Lungs: Clear to auscultation Neuro: Other (weak, unsteady) Psych/Mental Status: Mental status NL, Mood NL Review of Relevant I have reviewed the following items manny (where applicable) has been applied. Labs Laboratory Tests Test 04/04/18 21:04 04/05/18 06:08 04/06/18 09:05 Sodium Level 126 mmol/L (136-145) 127 mmol/L (136-145) 127 mmol/L (136-145) Potassium Level 2.8 mmol/L (3.5-5.1) 3.1 mmol/L (3.5-5.1) 3.8 mmol/L (3.5-5.1) Chloride Level 97 mmol/L (98-107) 97 mmol/L (98-107) 97 mmol/L (98-107) Carbon Dioxide Level 23 mmol/L (21-32) 22 mmol/L (21-32) 19 mmol/L (21-32) Anion Gap 6 (6-14) 8 (6-14) 11 (6-14) Blood Urea Nitrogen 20 mg/dL (7-20) 15 mg/dL (7-20) 18 mg/dL (7-20) Creatinine 1.6 mg/dL (0.6-1.0) 1.4 mg/dL (0.6-1.0) 1.9 mg/dL (0.6-1.0) Estimated GFR (Cockcroft-Gault) 31.7 37.0 26.0 Glucose Level 84 mg/dL (70-99) 123 mg/dL (70-99) 167 mg/dL (70-99) Calcium Level 7.6 mg/dL (8.5-10.1) 8.2 mg/dL (8.5-10.1) 7.7 mg/dL (8.5-10.1) Cortisol AM Sample 35.42 ug/dL (4.3-22.4) Medications Current Medications Labetalol HCl (Normodyne) 20 mg 1X ONCE IVP Last administered on 03/31/18at 12: 24; Start 03/31/18 at 12:30; Stop 03/31/18 at 12:31; Status DC Potassium Chloride (Klor-Con) 40 meq 1X ONCE PO Last administered on at 13:11; Start 03/31/18 at 13:30; Stop 03/31/18 at 13:31; Status DC Furosemide (Lasix) 40 mg 1X ONCE IVP Last administered on 03/31/18 13:10; Start 03/31/18 at 13:30; Stop 03/31/18 at 13:31; Status DC Levothyroxine Sodium (Synthroid) 175 mcg DAILYAC PO Last administered on 08:44; Start 04/01/18 at 07:30 Amlodipine Besylate (Norvasc) 5 mg DAILYBFRSUP PO Last administered on 17:06; Start 04/01/18 at 17:00; Stop 04/02/18 at 14:32; Status DC Apixaban (Eliquis) 2.5 mg BID PO Last administered on 04/06/18 08:44; Start at 21:00 Aspirin (Children'S Aspirin) 81 mg DAILYWBKFT PO Last administered on 08:44; Start 04/01/18 at 08:00 Atorvastatin Calcium (Lipitor) 80 mg QHS PO Last administered on 04/05/18 22: 15; Start 03/31/18 at 21:00 Vitamin D (Vitamin D3) 1,000 unit DAILY PO Last administered on 04/06/18 08:44 ; Start 04/01/18 at 09:00 Fish Oil (Fish Oil) 1,000 mg DAILY PO Last administered on 04/06/18 08:44; Start 04/01/18 at 09:00 Metronidazole (Flagyl) 500 mg TID PO Last administered on 04/04/18at 08:35; Start 03/31/18 at 21:00; Stop 04/04/18 at 20:59; Status DC Multivitamins/ Calcium (Thera-M Plus) 1 tab DAILY PO Last administered on 08:44; Start 04/01/18 at 09:00 Pantoprazole Sodium (Protonix) 40 mg DAILYAC PO Last administered on 04/06/18 08:44; Start 04/01/18 at 07:30 Paroxetine HCl (Paxil) 20 mg DAILY PO Last administered on 04/06/18 08:45; Start 04/01/18 at 09:00 Phenytoin Sodium (Dilantin) 300 mg DAILYBFRSUP PO Last administered on at 17:46; Start 04/01/18 at 17:00 Potassium Chloride (Klor-Con) 20 meq TID PO Last administered on 04/05/18at 08: 34; Start 03/31/18 at 21:00; Stop 04/05/18 at 10:55; Status DC Lactobacillus Rhamnosus (Culturelle) 1 cap BID PO Last administered on at 08:44; Start 03/31/18 at 21:00 Amlodipine Besylate (Norvasc) 10 mg 1X ONCE PO Last administered on 03/31/18at 22:33; Start 03/31/18 at 23:00; Stop 03/31/18 at 23:01; Status DC Acetaminophen (Tylenol) 650 mg PRN Q6HRS PRN PO PAIN / TEMP; Start 03/31/18 at 22:30 Clonidine HCl (Catapres) 0.1 mg 1X ONCE PO Last administered on 04/01/18at 08: 45; Start 04/01/18 at 08:30; Stop 04/01/18 at 08:37; Status DC Clonidine HCl (Catapres) 0.1 mg PRN 1X PRN PO HYPERTENSION, SEE COMMENTS Last administered on 04/01/18at 10:14; Start 04/01/18 at 09:00; Stop 04/05/18 at 11:16 ; Status DC Amlodipine Besylate (Norvasc) 10 mg 1X ONCE PO Last administered on 04/01/18at 10:48; Start 04/01/18 at 11:00; Stop 04/01/18 at 11:01; Status DC Carvedilol (Coreg) 3.125 mg BIDWMEALS PO Last administered on 04/01/18at 12:09; Start 04/01/18 at 12:00; Stop 04/01/18 at 14:53; Status DC Potassium Chloride (KCl Oral Soln) 40 meq Q4H FT Last administered on at 12:09; Start 04/01/18 at 12:00; Stop 04/01/18 at 16:01; Status DC Hydralazine HCl (Apresoline) 10 mg PRN Q6HRS PRN IV ELEVATED BP, SEE COMMENTS Last administered on 04/05/18at 18:30; Start 04/01/18 at 15:00 Carvedilol (Coreg) 3.125 mg 1X ONCE PO Last administered on 04/01/18at 15:11; Start 04/01/18 at 15:00; Stop 04/01/18 at 15:02; Status DC Carvedilol (Coreg) 6.25 mg BIDWMEALS PO Last administered on 04/04/18at 08:34; Start 04/01/18 at 17:00; Stop 04/04/18 at 08:49; Status DC Info (Non-Icu Electrolyte Protocol) 1 ea CONT PRN PRN MC PER PROTOCOL; Start at 19:15 Ondansetron HCl (Zofran) 4 mg PRN Q6HRS PRN IV NAUSEA/VOMITING Last administered on 04/03/18at 06:11; Start 04/02/18 at 11:00; Stop 04/03/18 at 14:12 ; Status DC Amlodipine Besylate (Norvasc) 10 mg DAILY PO Last administered on 04/06/18at 08: 45; Start 04/02/18 at 14:30 Sodium Chloride 1,000 ml @ 200 mls/hr Q5H IV Last administered on 04/02/18at 18 :13; Start 04/02/18 at 17:14; Stop 04/02/18 at 22:13; Status DC Promethazine HCl 25 mg/Sodium Chloride 51 ml @ 101 mls/hr PRN Q6HRS PRN IV NAUSEA/VOMITING Last administered on 04/03/18at 11:42; Start 04/02/18 at 17:30; Stop 04/05/18 at 11:17; Status DC Potassium Chloride (Klor-Con) 40 meq 1X ONCE PO Last administered on at 08:33; Start 04/03/18 at 07:30; Stop 04/03/18 at 07:37; Status DC Promethazine HCl (Phenergan) 25 mg STK-MED ONCE IV Last administered on at 11:24; Start 04/03/18 at 11:24; Stop 04/03/18 at 11:26; Status DC Sodium Chloride 1,000 ml @ 1,000 mls/hr Q1H IV Last administered on 04/03/18at 14:29; Start 04/03/18 at 11:38; Stop 04/03/18 at 12:37; Status DC Sodium Chloride 1,000 ml @ 150 mls/hr Q6H40M IV Last administered on at 11:38; Start 04/03/18 at 11:38; Stop 04/03/18 at 18:17; Status DC Prochlorperazine Edisylate (Compazine) 5 mg 1X ONCE IV ; Start 04/03/18 at 12: 00; Stop 04/03/18 at 12:01; Status DC Ondansetron HCl (Zofran) 8 mg PRN Q6HRS PRN IV NAUSEA/VOMITING; Start 04/03/18 at 14:00 Prochlorperazine Edisylate (Compazine) 10 mg PRN Q6HRS PRN IV NAUSEA/VOMITING Last administered on 04/03/18at 20:07; Start 04/03/18 at 14:00 Melatonin 3 mg HS PO Last administered on 04/05/18at 22:14; Start 04/03/18 at 21 :00 Zolpidem Tartrate (Ambien) 5 mg PRN QHS PRN PO INSOMNIA Last administered on at 20:16; Start 04/03/18 at 18:15 Carvedilol (Coreg) 12.5 mg BIDWMEALS PO Last administered on 04/05/18at 08:33; Start 04/04/18 at 09:00; Stop 04/05/18 at 11:04; Status DC Spironolactone (Aldactone) 25 mg DAILY PO Last administered on 04/05/18at 08:33 ; Start 04/04/18 at 09:00; Stop 04/05/18 at 15:23; Status DC Carvedilol (Coreg) 6.25 mg 1X ONCE PO Last administered on 04/04/18at 12:05; Start 04/04/18 at 11:00; Stop 04/04/18 at 11:07; Status DC Potassium Chloride/Sodium Chloride 1,000 ml @ 75 mls/hr [id number] IV Last administered on 04/05/18at 22:18; Start 04/04/18 at 13:15 Potassium Chloride (Klor-Con) 40 meq 1X ONCE PO Last administered on at 22:15; Start 04/04/18 at 21:30; Stop 04/04/18 at 21:32; Status DC Potassium Chloride (Klor-Con) 40 meq TID PO Last administered on 04/06/18at 08: 45; Start 04/05/18 at 14:00 Labetalol HCl (Trandate) 200 mg BID PO Last administered on 04/06/18at 08:45; Start 04/05/18 at 21:00 Spironolactone (Aldactone) 50 mg DAILY PO Last administered on 04/06/18at 08:45 ; Start 04/05/18 at 16:00 Active Scripts Active Reported Multi Vitamin Daily (Multivitamin) 1 Each Tablet 1 Tab PO DAILY Vitamin D (Cholecalciferol (Vitamin D3)) 1,000 Unit Capsule 1 Cap PO DAILY [place] 3-6-9 1,200 mg Softgel (Fish Oil/Borage/Flax/Om3,6,9#1) 1,200 Mg Capsule 1 ,200 Mg PO DAILY Aspirin 81 Mg Tab.chew 81 Mg PO DAILY Atorvastatin Calcium 80 Mg Tablet 1 Tab PO HS Levothyroxine Sodium 175 Mcg Tablet 1 Tab PO DAILY Paroxetine Hcl 20 Mg Tablet 1 Tab PO DAILY K-Tab ER (Potassium Chloride) 20 Meq Tablet.er 1 Tab PO TID Fludrocortisone Acetate 0.1 Mg Tablet 1 Tab PO DAILY Metronidazole 500 Mg Tablet 1 Tab PO TID Eliquis (Apixaban) 5 Mg Tablet 0.5 Tab PO BID Phenytoin Sodium Extended 100 Mg Capsule 3 Cap PO DAILYBFRSUP Omeprazole 40 Mg Capsule.dr 1 Cap PO BID Amlodipine Besylate 5 Mg Tablet 1 Tab PO DAILYBFRSUP Vitals/I & O Vital Sign - Last 24 Hours 04/05/18 04/05/18 04/05/18 04/05/18 15:45 18:28 18:30 19:00 Temp 97.9 97.8 Pulse 92 96 96 91 Resp 18 18 18 B/P (MAP) 217/101 (139) 193/78 (116) 193/78 161/74 (103) Pulse Ox 99 96 96 O2 Delivery Room Air Room Air Room Air 04/05/18 04/05/18 04/05/18 04/06/18 20:00 22:18 23:00 05:59 Temp 98.1 97.9 Pulse 91 74 69 Resp 14 16 B/P (MAP) 161/74 150/83 (105) 126/72 (90) Pulse Ox 100 98 O2 Delivery Room Air Room Air Room Air 04/06/18 04/06/18 04/06/18 04/06/18 08:00 08:45 08:45 11:14 Temp 97.6 Pulse 69 69 59 Resp 20 B/P (MAP) 126/72 126/72 148/61 (90) Pulse Ox 98 O2 Delivery Room Air Room Air 04/06/18 04/06/18 11:18 11:19 Pulse 61 62 B/P (MAP) 119/59 (79) 91/66 (74) Intake and Output 04/05/18 04/05/18 04/06/18 15:00 23:00 07:00 Intake Total 960 ml 171 ml 1406 ml Balance 960 ml 171 ml 1406 ml MAYCOL ORELLANA Jr, MD 04/11/18 0841: PROGRESS NOTES Assessment The patient was seen by Yosi Preston APRN and I have reviewed her findings and plan and agree with above. Due to staffing constraints, we did not have an attending available on this day to see the patient. MD MOHAN Dyson Jr., JANAE M APRN Apr 06, 2018 13:28 MAYCOL ORELLANA Jr, MD Apr 11, 2018 08:41
[2018-04-06 14:18] VITALS: BP 119/56
[2018-04-06] MEDS ORDERED: IV NORMAL SALINE 1,000ML 1,000 ML IV SCH (15:30)
[2018-04-06] MEDS: PHENYTOIN SODIUM EXTENDED 100 MG CAPSULE PO SCH (16:49)
--- NOTE | 2018-04-06 19:50 | PN ---
DATE: 04/06/2018 SUBJECTIVE: The patient is resting slightly propped up in bed, in no apparent distress. Questioning her, she denied any chest pain or shortness of breath, but complaining of recurrent bouts of loose bowel movement. Her blood pressure is extremely well controlled; however, she continued to have orthostatic hypotension. In fact, her blood pressure lying was 148/61, sitting was 119/59, standing was 91/66. OBJECTIVE: GENERAL: On examining her, she looked pale, but no jaundice, cyanosis, or thyromegaly. No jugular venous distension. No limb edema. VITAL SIGNS: Her heart rate was 58, blood pressure 119/56, temperature was 98, respiratory rate 20, and oxygen saturation was 99% on room air. HEAD, EYES, EARS, NOSE AND THROAT: Showed normocephalic, atraumatic. NECK: Supple. HEART: Showed normal first and second sounds. No gallop, rub or murmur. CHEST: Clear to auscultation. No crepitation or rhonchi. ABDOMEN: Distended, soft, nontender. NEUROLOGIC: She is awake, alert, responding appropriately. She continued to have expressive aphasia and mild residual right-sided hemiplegia. Her intake over the last 24 hours was 2537. No output was recorded. LABORATORY DATA: Her lab work this morning showed a white cell count of 10,200, hemoglobin 14, hematocrit 42, MCV 89 and platelet count 376,000. Her chemistry this morning showed a serum sodium of 127, potassium 3.8, chloride 97, bicarbonate 19, anion gap of 11, BUN 18, creatinine 1.9, estimated GFR was 26 mL per minute. Her glucose 167, calcium was 7.7. ASSESSMENT: 1. Hypertensive urgency. She is now on amlodipine once a day and we discontinued her Coreg and she is on labetalol 200 mg twice a day as well as spironolactone. Her blood pressure is much better controlled; however, she continued to have marked postural hypertension. 2. Hypokalemia for which she is on spironolactone together with the IV potassium as well as potassium 40 mEq of potassium 3 times a day. Her potassium is up to 3.8. 3. She continued to have hyponatremia despite the IV fluid. 4. She has chronic kidney disease with [id number] kidney injury as her creatinine has risen from 1.4 to 1.9. 5. Atrial fibrillation, currently in sinus rhythm. She is well anticoagulated on Eliquis. 6. Mixed hyperlipidemia, for which she is on atorvastatin calcium 80 mg at bedtime. 7. Coronary artery disease, status post coronary artery bypass graft surgery. The patient is asymptomatic, chest pain free, and clinically, she is not in heart failure. 8. Cerebrovascular accident with mild residual right-sided hemiparesis and mild expressive aphasia. 9. The patient has total occlusion in her left carotid artery and she is status post right carotid endarterectomy. 10. Given her hypertensive urgency, hyponatremia, hypokalemia, I believe this patient needs to be transferred to [facility], and we have already made arrangements for her to be transferred to [facility]. She is officially accepted by the hospitalist group. We are waiting for the bed for her to be transferred for further evaluation by the electrophysiology nurse practitioner and change room attendant. JAMILA WOOD MD DR: EVELIN/rj JOB#: [id number] / [id number]
[2018-04-06] MEDS ORDERED: POTASSIUM CHLORIDE 20 MEQ TABLET.ER. PO SCH (21:00)
--- NOTE | 2018-04-07 22:49 | DS ---
DATE OF DISCHARGE: 04/06/2018 HISTORY OF PRESENT ILLNESS: The patient is a 72-year-old female patient, who was admitted with the poorly controlled blood pressure. She apparently has been on atenolol for almost about 20 years, but recently it was causing her blood pressure to be low and about 2 days prior to admission, her washer and crusher tender discontinued that and her primary care physician started her on amlodipine 5 mg once a day. However, her blood pressure was extremely high and when she came to the Emergency Room, it was 243/127. Although, the patient was alert, oriented x 4 and calm, appears to be in no distress and has absolutely no complaint. The patient apparently has remote history of left mid cerebral artery territory infarct with right-sided weakness and expressive aphasia and in the Emergency Room, was found to have hypertensive urgency and also marked hypokalemia. Experimented with multiple medications, I will increase her amlodipine, I started her on Coreg; however, her blood pressure continued to be extremely high and I did substitute labetalol for Coreg and her blood pressure was well controlled. Unfortunately, the patient developed hyponatremia, hypokalemia and also mirbo-[id number] kidney injury. We did the renal artery duplex, which basically showed no duplex evidence of significant right renal artery stenosis; however, there was nonvisualization of the left renal artery due to overlying bowel. CT angiography may be useful; however, the patient has chronic kidney disease and the CT angio cannot be done in this facility with the carbon dioxide. Despite massive amount of potassium, the patient continued to have hypokalemia and despite IV fluid in the form of normal saline, the patient's sodium continued to be low and we did actually her morning cortisol, which was high at about 35.4. Her TSH was normal at 2.296 and it was felt that the patient will be better served by transferring her to a higher level of care as she probably will need to be evaluated by a steeplechase jockey as well as an sales order processor. She continued to have also recurrent bouts of loose bowel movement. She was treated empirically before with the vancomycin for possible C. diff colitis, although it has been consistently negative. The diarrhea is probably contributing to her hypokalemia. PHYSICAL EXAMINATION: GENERAL: On the day of discharge, she looked well and was clearly in no apparent respiratory distress. There was no pallor, jaundice, cyanosis or thyromegaly. No jugular venous distention. No limb edema. VITAL SIGNS: Her heart rate was 58, blood pressure 119/56, temperature was 98, respiratory rate 20, and oxygen saturation was 99% on room air. HEAD, EYES, EARS, NOSE AND THROAT: Normocephalic, atraumatic. NECK: Supple. HEART: Showed normal first and second heart sounds. No gallop, rub or murmur. CHEST: Clear to auscultation. No crepitation or rhonchi. ABDOMEN: Slightly distended, soft, nontender. NEUROLOGIC: She is awake, alert, responding appropriately. All her cranial nerves intact. She continued to have mild expressive aphasia and mild residual right-sided hemiparesis. LABORATORY DATA: Her most recent lab work showed a white cell count of 10,200, hemoglobin 14.5, hematocrit 42, MCV 89 and platelet count of 376,000. Her chemistry showed a serum sodium of 127, potassium 3.8, chloride 97, bicarbonate 19, anion gap of 11, BUN 18, creatinine 1.9, estimated GFR was 26 mL per minute. Her glucose 167 and calcium was 7.7. Her D-dimer was extremely high at 5.84. Urinalysis was unremarkable. Toxic screen showed phenytoin level of 13.3, which is well within therapeutic range. Her stool for C. difficile toxins were negative. DISCHARGE MEDICATIONS: She was discharged and transferred to [facility] to continue on the following medications, potassium chloride 20 mEq 3 times a day, normal saline at 75 mL per hour, labetalol 200 mg twice a day, spironolactone 50 mg once a day, melatonin 3 mg at bedtime, Ambien 5 mg at bedtime, ondansetron 8 mg every 6 hours, amlodipine 10 mg once a day, phenytoin sodium 300 mg once a day at bedtime. She is on paroxetine 20 mg, multivitamin 1 tablet once a day, fish oil ____ daily, vitamin D 1000 international unit once a day, aspirin 81 mg once a day, Protonix 40 mg once a day, levothyroxine 175 mcg once a day, acetaminophen 650 mg every 6 hours as needed, lactobacillus acidophilus 1 capsule twice a day, atorvastatin 80 mg at bedtime, and apixaban 2.5 mg twice a day. ASSESSMENT: 1. Hypertensive urgency. The patient is on amlodipine once a day and Coreg 200 mg twice a day. Her blood pressure is well controlled; however, she continued to have marked postural hypertension. 2. Hypokalemia for which she is on spironolactone together with IV and oral potassium. 3. She continued to be hyponatremic despite the IV fluid. 4. Yrczr-ku-fvvsojq kidney injury. Creatinine has risen from 1.4 to 1.9. 5. Atrial fibrillation, currently in sinus rhythm. She is well anticoagulated with the Eliquis. 6. Mixed hyperlipidemia for which she is on atorvastatin 80 mg at bedtime. 7. Coronary artery disease status post coronary artery bypass graft surgery. The patient is asymptomatic, chest pain free and clinically, she is not in heart failure. 8. Cerebrovascular disease with the mild residual right-sided hemiparesis and mild expressive aphasia. 9. 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 Given her worsening kidney function, hyponatremia and hypokalemia, the patient was transferred to [facility] to consult Nephrology team and Endocrinology and has a credit coordinator. She continued to have loose bowel movement. JAMILA WOOD MD DR: EVELIN/rj JOB#: [id number] / [id number]
== END 2018-04-06 17:39 | disposition short-term general hospital (02) | DRG 371 ==
LOC: ER 11:35 → 1 SOUTH 14:46
PROVIDERS: ADMIT Internal Medicine; ATTEND Internal Medicine
DX: A04.72 Enterocolitis due to Clostridium difficile, not specified as recurrent (principal); E43 Unspecified severe protein-calorie malnutrition; N17.9 Acute kidney failure, unspecified; E87.1 Hypo-osmolality and hyponatremia; I69.351 Hemiplegia and hemiparesis following cerebral infarction affecting right dominant side; R64 Cachexia; I50.32 Chronic diastolic (congestive) heart failure; I13.0 Hypertensive heart and chronic kidney disease with heart failure and stage 1 through stage 4 chronic kidney disease, or unspecified chronic kidney disease; I16.0 Hypertensive urgency; N18.3 Chronic kidney disease, stage 3 (moderate); E86.0 Dehydration; E03.9 Hypothyroidism, unspecified; E78.2 Mixed hyperlipidemia; E87.6 Hypokalemia; G40.909 Epilepsy, unspecified, not intractable, without status epilepticus; H54.62 Unqualified visual loss, left eye, normal vision right eye; I25.10 Atherosclerotic heart disease of native coronary artery without angina pectoris; I48.0 Paroxysmal atrial fibrillation; I65.29 Occlusion and stenosis of unspecified carotid artery; E78.00 Pure hypercholesterolemia, unspecified; F80.81 Childhood onset fluency disorder; I95.1 Orthostatic hypotension; E89.2 Postprocedural hypoparathyroidism; R73.9 Hyperglycemia, unspecified; I69.320 Aphasia following cerebral infarction; Z79.01 Long term (current) use of anticoagulants; Z79.899 Other long term (current) drug therapy; Z80.8 Family history of malignant neoplasm of other organs or systems; Z82.49 Family history of ischemic heart disease and other diseases of the circulatory system; Z90.710 Acquired absence of both cervix and uterus; Z95.1 Presence of aortocoronary bypass graft; I25.2 Old myocardial infarction; Z88.5 Allergy status to narcotic agent; Z90.722 Acquired absence of ovaries, bilateral; Z90.79 Acquired absence of other genital organ(s); Z79.82 Long term (current) use of aspirin; Z87.891 Personal history of nicotine dependence; Z68.20 Body mass index [BMI] 20.0-20.9, adult
CPT/HCPCS: 36415; 70450; 71045; 74022; 76700; 76770; 78582; 80048; 80053; 80185; 81001; 82533; 82553; 83690; 83880; 84132; 84443; 84484; 85025; 85379; 87324; 93005; 96374; 96375; A9540; A9558; J0360; J0780; J1940; J2405; J2550; J3490; 97116; 99285-25; J7030

== ENCOUNTER 2018-12-07 18:18 | Emergency (ER) | payer MEDICARE ==
[~2018-12-07] VITALS: Ht 152.4 cm; Wt 48.0 kg
[~2018-12-07 18:18] MED LIST changes: +AMLO5TAB10 PO; +APIX5TAB3 PO; +ASPI-630 PO; +ATOR80TA72 PO; +CHOL100013 PO; +FISH12002 PO; +FLUD0.1T PO; +LEVO175T5 PO; +METR-34 PO; +MULT-245 PO; +OMEP40CA5 PO; +PARO20TA3 PO; +PHEN100C4 PO; +POTA20TA84 PO
--- NOTE | 2018-12-07 18:53 | PHYS DOC ---
Past History Past Medical History: Hypertension, Stroke Past Surgical History: Coronary Bypass Surgery Alcohol Use: None Drug Use: None Adult General Chief Complaint Chief Complaint: ABNORMAL LABS HPI HPI 33-year-old female presents because of abnormal labs. Patient went to have labs drawn today and they called back and said she had a low blood count. They do not say which blood count, but did say level was 6.4. The patient is feeling a bit short of breath and very fatigued. She did have dialysis today. She tells me that her fatigue is similar to her usual dialysis day fatigue. The shortness breath is a little worse. She has a benign mass of fluid in her lungs over the last 3 days with 2 x-rays and a CT. No pneumonia. She denies chest pain. She does still produce urine in addition her dialysis. Patient has a long cardiac history. She has been in the hospital last year. She denies fever or chills. Review of Systems Review of Systems Constitutional: Denies fever or chills. Fatigue. [] Eyes: Denies change in visual acuity, redness, or eye pain [] HENT: Denies nasal congestion or sore throat [] Respiratory: Denies cough. Some shortness of breath [] Cardiovascular: No additional information not addressed in HPI [] GI: Denies abdominal pain, nausea, vomiting, bloody stools or diarrhea [] : Denies dysuria or hematuria [] Musculoskeletal: Denies back pain or joint pain [] Integument: Denies rash or skin lesions [] Neurologic: Denies headache, focal weakness or sensory changes [] Endocrine: Denies polyuria or polydipsia [] All other systems were reviewed and found to be within normal limits, except as documented in this note. Allergies Allergies Allergies Coded Allergies Type Severity Reaction Last Updated Verified codeine Allergy Intermediate 04/01/18 Yes Physical Exam Physical Exam Constitutional: Well developed, thin, no acute distress, non-toxic appearance. [ ] HENT: Normocephalic, atraumatic, bilateral external ears normal, oropharynx moist, no oral exudates, nose normal. [] Eyes: PERRLA, EOMI, conjunctiva normal, no discharge. Abnormal left cornea. [] Neck: Normal range of motion, no tenderness, supple, no stridor. [] Cardiovascular:Heart rate regular rhythm, no murmur [] Lungs & Thorax: Bilateral breath sounds clear to auscultation [] Abdomen: Bowel sounds normal, soft, no tenderness, no masses, no pulsatile masses. [] Skin: Warm, dry, no erythema, no rash. [] Back: No tenderness, no CVA tenderness. [] Extremities: No tenderness, no cyanosis, no clubbing, ROM intact, no edema. [] Neurologic: Alert and oriented X 3, normal motor function, normal sensory function, no focal deficits noted. [] Psychologic: Affect normal, judgement normal, mood normal. [] EKG EKG Sinus rhythm, rate 64 normal axis, no ST elevations or depressions. Patient has a pacemaker, but no definite spikes seen[] Radiology/Procedures Radiology/Procedures [] Impressions: Indication:shortness of breath, recent heart attack TECHNIQUE:Portable AP chest X-ray COMPARISON:03/30/2018 FINDINGS: Dual-lead cardiac pacer is seen with its leads projecting over the heart. Dialysis catheter is seen with its tip at the cavoatrial junction. Heart is top normal in size. Consolidation is seen in the right lung base with blunting of the right costophrenic angle. Diffuse interstitial opacities are seen. No pneumothorax. Julys bony thorax within normal limits. IMPRESSION: 1. Consolidation in the right lower lobe may be secondary to atelectasis or pneumonia. 2. Small right pleural effusion. 3. Mild central pulmonary edema. Electronically signed by: Babatunde Carrion DO (12/07/2018 7:33 PM) [facility] DICTATED AND SIGNED BY: BABATUNDE CARRION DO DATE: 12/07/181931 CC: SHON BOWDEN DO; CRISTOBAL MARTINEZ MD Course & Med Decision Making Course & Med Decision Making Pertinent Labs and Imaging studies reviewed. (See chart for details) Patient's x-ray does show fluid and possible consolidation. The radiologist cannot compare it to her CT scan of the lungs was done yesterday at another hospital. Based on the report of known pneumonia on CT less than 24 hours ago, I do not believe this is likely to be pneumonia. The patient also has no fever. She has no white count. Repeat labs show a hemoglobin of 9.1. His possible there was lab error on her labs today. The rest of her workup is pending. EKG is negative for acute findings. The patient's potassium is 2.5. I have ordered 40 mEq of potassium orally as well as 20 mEq by IV. The patient has an elevated troponin of 5. She has had elevated troponins in the past, but not this high. She is not having any chest pain. The patient really does not want to get admitted to the hospital. Her is supposed to have surgery tomorrow morning for an aortic aneurysm repair. The patient was considering signing out AMA. I negotiated with her to get 20 mEq of potassium IV as well as 40 mEq by mouth and then repeat her troponin. If her troponin is the same or improved, she could go home with family, but if not she will need to stay in the hospital. The patient was agreeable to this plan. Her second troponin is pending. Second troponin was similar at .108. A repeat EKG showed some ST depression V3-V6. Patient continues to have no chest pain. Further discussion with the patient and her son reveals that she had a cardiac catheter in 2 stents placed one week ago. There was a third vessel that they were not able to place a stent in. She is being managed by cardiology. Given this recent intervention, this could explain her troponin and I believe she is safe to be discharged home with family. Anything changes in her condition, she will return to the emergency room. She will have her potassium repeated by the dialysis clinic on Wednesday if not an outpatient lab tomorrow. She is stable for discharge at this time. Dragon Disclaimer Dragon Disclaimer This electronic medical record was generated, in whole or in part, using a voice recognition dictation system. Departure Departure: Impression: Primary Impression: Elevated troponin Additional Impression: Hypokalemia Referrals: CRISTOBAL MARTINEZ MD (PCP) Patient Instructions: Hypokalemia-Brief Problem Qualifiers SHON BOWDEN DO Dec 07, 2018 18:53
[2018-12-07 19:28] LABS: BASO # 0.1 x10^3/uL (0.0-0.2); BASO % 2 % (0-3); EOS # 0.1 x10^3/uL (0.0-0.7); EOS % 1 % (0-3); HEMOGLOBIN 9.1 g/dL (12.0-15.5); LYMPH % 16 % (24-48); MEAN CORPUSCULAR HEMOGLOBIN 30 pg (25-35); MEAN CORPUSCULAR HGB CONC 34 g/dL (31-37); MEAN CORPUSCULAR VOLUME 89 fL (79-100); MONO % 16 % (0-9); NEUT # 4.1 x10^3uL (1.8-7.7); NEUT % 66 % (31-73); PLATELET COUNT 234 x10^3/uL (140-400); RED BLOOD COUNT 3.02 x10^6/uL (3.50-5.40); RED CELL DISTRIBUTION WIDTH 19.1 % (11.5-14.5); WHITE BLOOD COUNT 6.2 x10^3/uL (4.0-11.0)
--- NOTE | 2018-12-07 19:36 | RAD ---
Indication:shortness of breath, recent heart attack TECHNIQUE:Portable AP chest X-ray COMPARISON:03/30/2018 FINDINGS: Dual-lead cardiac pacer is seen with its leads projecting over the heart. Dialysis catheter is seen with its tip at the cavoatrial junction. Heart is top normal in size. Consolidation is seen in the right lung base with blunting of the right costophrenic angle. Diffuse interstitial opacities are seen. No pneumothorax. Julys bony thorax within normal limits. IMPRESSION: 1. Consolidation in the right lower lobe may be secondary to atelectasis or pneumonia. 2. Small right pleural effusion. 3. Mild central pulmonary edema. Electronically signed by: Babatunde Bowens DO (12/07/2018 7:33 PM) [facility]
[2018-12-07 20:24] LABS: ALBUMIN 2.8 g/dL (3.4-5.0); ALBUMIN/GLOBULIN RATIO 0.7 (1.0-1.7); CALCIUM 8.3 mg/dL (8.5-10.1); CREATININE 0.9 mg/dL (0.6-1.0); GFR 61.4; TOTAL BILIRUBIN 0.6 mg/dL (0.2-1.0); TOTAL PROTEIN 6.7 g/dL (6.4-8.2)
[2018-12-07 20:26] LABS: POTASSIUM 2.5 mmol/L (3.5-5.1)
[2018-12-07] MEDS ORDERED: POTASSIUM CHLORIDE 20MEQ 100 ML IV SCH (20:30)
[2018-12-07] MEDS ORDERED: POTASSIUM CHLORIDE 20MEQ 100 ML IV ONE (20:45)
[2018-12-07] MEDS ORDERED: POTASSIUM CHLORIDE 20 MEQ TABLET.ER. PO ONE (20:45)
[2018-12-08 00:08] VITALS: BP 142/60
--- NOTE | 2018-12-09 21:42 | EKG ---
[address] [address] Test Date: 2018-12-07 Test Time: 23:51:37 Pat Name: CHARLIE LINARES Department: Room: Gender: F Watermelon Inspector: PASHA : 1945 Requested By: SHON BOWDEN Order Number: [id number] Reading MD: Adarsh Robertson MD Measurements Intervals [place] Rate: 69 P: 16 DE: 168 QRS: 42 QRSD: 96 T: -116 QT: 468 QTc: 503 Interpretive Statements SINUS RHYTHM INCOMPLETE RIGHT BUNDLE BRANCH BLOCK LVH WITH REPOLARIZATION ABNORMALITY PROLONGED QT ABNORMAL ECG CANNOT RULE OUT LATERAL WALL ISCHEMIA Electronically Signed On 12-13-2018 7:46:32 MANGLE TENDER by Adarsh Robertson MD
--- NOTE | 2018-12-09 21:44 | EKG ---
[address] [address] Test Date: 2018-12-07 Test Time: 18:57:47 Pat Name: CHARLIE LINARES Department: Room: Gender: F Auto Wrecker: : 1945 Requested By: SHON BOWDEN Order Number: [id number] Reading MD: Antwon Duque Measurements Intervals [place] Rate: 64 P: MT: QRS: 36 QRSD: 98 T: -126 QT: 518 QTc: 540 Interpretive Statements SINUS RHYTHM LVH WITH REPOLARIZATION ABNORMALITY PROLONGED QT ABNORMAL ECG Electronically Signed On 12-13-2018 11:05:26 GRAINING MACHINE OPERATOR by Antwon Duque
== END 2018-12-08 00:10 | disposition home or self-care (01) ==
LOC: ER 18:18
DX: R79.89 Other specified abnormal findings of blood chemistry (principal); E87.6 Hypokalemia; J90 Pleural effusion, not elsewhere classified; J81.1 Chronic pulmonary edema; I10 Essential (primary) hypertension; Z86.73 Personal history of transient ischemic attack (TIA), and cerebral infarction without residual deficits; Z95.1 Presence of aortocoronary bypass graft; Z88.5 Allergy status to narcotic agent
CPT/HCPCS: 36415; 71045; 80053; 84484; 85025; 93005; 96365; 96366; 99284; J3480

== ENCOUNTER 2019-01-18 22:27 | Emergency (ER) | payer MEDICARE ==
--- NOTE | 2019-01-18 22:43 | ED.ADGEN ---
Past History Past Medical History: CAD, CHF, Hypertension, Renal Failure, Seizure, Stroke, Other Past Surgical History: Coronary Bypass Surgery, Pacemaker, Other Past Surgical History Lt. shoulder fixation- fx December 2017 Alcohol Use: None Drug Use: None Adult General Chief Complaint Chief Complaint ".. She at the [facility] in [place].. she been there to see if she get where she could walk again.. she was discharge from [place].. but now that Lt leg is red like cellulitis.. " ( Daughter) [facility] HPI Patient is a 73 year old female who presents with above hx and complaints left lower leg redness. Patient is end-stage renal disease with dialysis on Tuesdays and Saturdays. Patient has been in [facility] for rehabilitation and strengthening. Patient has known severe peripheral vascular disease with bypass and stents. Pt. reportedly in and out of hospitals for multiple complaints since fall and fx of Lt shoulder. Pt. currently in [facility] for rehab. Pt. noted on nursing rounds to have increased redness of Lt leg. Pt. also missed HD yesterday because of transportation miscommunication. Pt. normally follows with Dr Kaplan. Review of Systems Review of Systems Constitutional: Denies fever or chills [] Eyes: Denies change in visual acuity, redness, or eye pain [] HENT: Denies nasal congestion or sore throat [] Respiratory: Denies cough or shortness of breath [] Cardiovascular: No additional information not addressed in HPI [] GI: Denies abdominal pain, nausea, vomiting, bloody stools or diarrhea [] : Denies dysuria or hematuria [] Musculoskeletal: Denies back pain or joint pain []bilateral leg weakness Integument: Complaints of[]left leg erythema Neurologic: Denies headache, focal weakness or sensory changes [] Endocrine: Denies polyuria or polydipsia [] All other systems were reviewed and found to be within normal limits, except as documented in this note. Family History Family History Noncontributory Current Medications Current Medications Current Medications Medications (Trade) Dose Ordered Sig/Harish Start Time Stop Time Status Last Admin Dose Admin Sodium Chloride 250 ml @ As Directed STK-MED ONCE 01/19/19 01:19 01/19/19 01:20 DC Vancomycin HCl (Vancomycin) 1 gm STK-MED ONCE 01/19/19 01:20 01/19/19 01:21 DC Vancomycin HCl 1 gm/Sodium Chloride 250 ml @ 250 mls/hr 1X ONCE 01/19/19 01:00 01/19/19 02:30 DC 01/19/19 01:36 250 MLS/HR See nursing for home meds Allergies Allergies Allergies Coded Allergies Type Severity Reaction Last Updated Verified codeine Allergy Intermediate 04/01/18 Yes Physical Exam Physical Exam Constitutional: Moderately acute distress, non-toxic appearance. [] HENT: Normocephalic, atraumatic, bilateral external ears normal, oropharynx moist, no oral exudates, nose normal. [] Eyes: PERRLA, , conjunctiva pale no discharge. [] Glasses. Scar Lt eye Neck: Normal range of motion, no tenderness, supple, no stridor. [] Cardiovascular:Heart rate regular rhythm, murmur []PMI to Lt. Lungs & Thorax: Bilateral breath sounds equal apexes with scattered wheezes on auscultation [ AV ]port on right. Mid line scar. Pacer Lt. Few crackles bilateral bases. Abdomen: Bowel sounds normal, soft, no tenderness, no masses, no pulsatile masses. []Old scars. Skin: Warm, dry, Lt. leg erythema, -cellulitis . Poor turgor. Back: No tenderness, no CVA tenderness. [] Extremities: Lt. lower leg tenderness, no cyanosis, no clubbing, ROM intact, no edema. [] Bilateral lower leg scars. Edema feet. Decrease pulses = Rt and Lt. Scar Lt shoulder. Adenopathy Lt groin. Muscle atrophy Rt. leg- Neurologic: Alert and oriented X 3, bilateral leg motor weakness, decreased plantar sensory function, no new focal deficits noted.per family. Psychologic: Affect flat, , mood depressed. Current Patient Data Vital Signs Vital Signs Date Time Temp Pulse Resp B/P (MAP) Pulse Ox O2 Delivery O2 Flow Rate FiO2 01/19/19 04:50 71 20 177/76 (109) 97 Room Air 2.0 01/18/19 22:27 98.0 Lab Results Laboratory Tests Test 01/18/19 22:55 01/19/19 01:00 White Blood Count 7.9 x10^3/uL (4.0-11.0) Red Blood Count 3.21 x10^6/uL (3.50-5.40) L Hemoglobin 9.5 g/dL (12.0-15.5) L Hematocrit 29.3 % (36.0-47.0) L Mean Corpuscular Volume 91 fL (79-100) Mean Corpuscular Hemoglobin 30 pg (25-35) Mean Corpuscular Hemoglobin Concent 32 g/dL (31-37) Red Cell Distribution Width 20.5 % (11.5-14.5) H Platelet Count 261 x10^3/uL (140-400) Neutrophils (%) (Auto) 70 % (31-73) Lymphocytes (%) (Auto) 12 % (24-48) L Monocytes (%) (Auto) 17 % (0-9) H Eosinophils (%) (Auto) 1 % (0-3) Basophils (%) (Auto) 1 % (0-3) Neutrophils # (Auto) 5.5 x10^3uL (1.8-7.7) Lymphocytes # (Auto) 0.9 x10^3/uL (1.0-4.8) L Monocytes # (Auto) 1.4 x10^3/uL (0.0-1.1) H Eosinophils # (Auto) 0.0 x10^3/uL (0.0-0.7) Basophils # (Auto) 0.1 x10^3/uL (0.0-0.2) Platelet Estimate Adequate (ADEQUATE) Anisocytosis Slight Erythrocyte Sedimentation Rate 61 (0-25) H Prothrombin Time 9.8 SEC (9.4-11.4) Prothrombin Time INR 1.0 (0.9-1.1) PTT 25 SEC (23-33) D-Dimer (Lissy) 7.08 mg/L (0.00-0.50) H Sodium Level 139 mmol/L (136-145) Potassium Level 3.5 mmol/L (3.5-5.1) Chloride Level 101 mmol/L (98-107) Carbon Dioxide Level 29 mmol/L (21-32) Anion Gap 9 (6-14) Blood Urea Nitrogen 29 mg/dL (7-20) H Creatinine 2.4 mg/dL (0.6-1.0) H Estimated GFR (Cockcroft-Gault) 19.8 Glucose Level 100 mg/dL (70-99) H Calcium Level 8.5 mg/dL (8.5-10.1) Magnesium Level 1.6 mg/dL (1.8-2.4) L Total Bilirubin 0.4 mg/dL (0.2-1.0) Direct Bilirubin 0.1 mg/dL (0.0-0.2) Aspartate Amino Transferase (AST) 98 U/L (15-37) H Alanine Aminotransferase (ALT) 231 U/L (14-59) H Alkaline Phosphatase 61 U/L (46-116) Creatine Kinase 332 U/L (26-192) H Troponin I Quantitative 0.045 ng/mL (0-0.055) AA-Qet-K-Type Natriuretic Peptide 87157 pg/mL (0-124) H Total Protein 6.5 g/dL (6.4-8.2) Albumin 2.3 g/dL (3.4-5.0) L Urine Collection Type Unknown Urine Color Yellow Urine Clarity Clear Urine pH 7.0 Urine Specific [place]arrison 1.020 Urine Protein >100 mg/dl (NEG-TRACE) Urine Glucose (UA) Neg mg/dL (NEG) Urine Ketones (Stick) Neg mg/dL (NEG) Urine Blood Mod (NEG) Urine Nitrite Neg (NEG) Urine Bilirubin Neg (NEG) Urine Urobilinogen Dipstick 0.2 mg/dL (0.2 mg/dL) Urine Leukocyte Esterase Neg (NEG) Urine RBC 0 /HPF (0-2) Urine WBC Occ /HPF (0-4) Urine Squamous Epithelial Cells Few /LPF Urine Bacteria 0 /HPF (0-FEW) EKG EKG My interpretation EKG shows a sinus rhythm at 70 bpm. LVH, and nonspecific contour abnormality. No findings acute STEMI with contralateral changes.[] Radiology/Procedures Radiology/Procedures My interpretation of chest x-ray shows cardiomegaly, some cephalization, pacer defibrillator left, hemodialysis support right subclavian, no free air under diaphragm.[] US= No DVT- see formal report Course & Med Decision Making Course & Med Decision Making Pertinent Labs and Imaging studies reviewed. (See chart for details) Discussed presentation, testing and tx. plan with Dr. Torres- Transfer to [facility] for HD, and possible PIC line for cellulitis tx. Lt. leg [] Final Impression Final Impression 1. Left leg[]-cellulitis 2. History of severe peripheral vascular disease 3. Hx ESRDz, T,Thur, Sat HD 4. Anemia Hgb = 9.5 5. Elevated Sed. = 61 6. Elevated AST/ALT 98/231 7. Elevated CK= 332 8. Hypomagnesium 1.6 9. Elevated Creat /Bun= 2.4/29 10. Elevated D-dimer 7.00 Dragon Disclaimer Dragon Disclaimer This electronic medical record was generated, in whole or in part, using a voice recognition dictation system. Discharge Summary Visit Information Final Diagnosis Problems Medical Problems: (1) Cellulitis Status: Acute (2) Wrist sprain Status: Acute Brief Hospital Course Allergies Allergies Coded Allergies Type Severity Reaction Last Updated Verified codeine Allergy Intermediate 04/01/18 Yes Vital Signs Vital Signs Date Time Temp Pulse Resp B/P (MAP) Pulse Ox O2 Delivery O2 Flow Rate FiO2 01/19/19 04:50 71 20 177/76 (109) 97 Room Air 2.0 01/18/19 22:27 98.0 Lab Results Laboratory Tests Test 01/18/19 22:55 01/19/19 01:00 White Blood Count 7.9 x10^3/uL (4.0-11.0) Red Blood Count 3.21 x10^6/uL (3.50-5.40) Hemoglobin 9.5 g/dL (12.0-15.5) Hematocrit 29.3 % (36.0-47.0) Mean Corpuscular Volume 91 fL (79-100) Mean Corpuscular Hemoglobin 30 pg (25-35) Mean Corpuscular Hemoglobin Concent 32 g/dL (31-37) Red Cell Distribution Width 20.5 % (11.5-14.5) Platelet Count 261 x10^3/uL (140-400) Neutrophils (%) (Auto) 70 % (31-73) Lymphocytes (%) (Auto) 12 % (24-48) Monocytes (%) (Auto) 17 % (0-9) Eosinophils (%) (Auto) 1 % (0-3) Basophils (%) (Auto) 1 % (0-3) Neutrophils # (Auto) 5.5 x10^3uL (1.8-7.7) Lymphocytes # (Auto) 0.9 x10^3/uL (1.0-4.8) Monocytes # (Auto) 1.4 x10^3/uL (0.0-1.1) Eosinophils # (Auto) 0.0 x10^3/uL (0.0-0.7) Basophils # (Auto) 0.1 x10^3/uL (0.0-0.2) Platelet Estimate Adequate (ADEQUATE) Anisocytosis Slight Erythrocyte Sedimentation Rate 61 (0-25) Prothrombin Time 9.8 SEC (9.4-11.4) Prothromb Time International Ratio 1.0 (0.9-1.1) Activated Partial Thromboplast Time 25 SEC (23-33) D-Dimer (Lissy) 7.08 mg/L (0.00-0.50) Sodium Level 139 mmol/L (136-145) Potassium Level 3.5 mmol/L (3.5-5.1) Chloride Level 101 mmol/L (98-107) Carbon Dioxide Level 29 mmol/L (21-32) Anion Gap 9 (6-14) Blood Urea Nitrogen 29 mg/dL (7-20) Creatinine 2.4 mg/dL (0.6-1.0) Estimated GFR (Cockcroft-Gault) 19.8 Glucose Level 100 mg/dL (70-99) Calcium Level 8.5 mg/dL (8.5-10.1) Magnesium Level 1.6 mg/dL (1.8-2.4) Total Bilirubin 0.4 mg/dL (0.2-1.0) Direct Bilirubin 0.1 mg/dL (0.0-0.2) Aspartate Amino Transf (AST/SGOT) 98 U/L (15-37) Alanine Aminotransferase (ALT/SGPT) 231 U/L (14-59) Alkaline Phosphatase 61 U/L (46-116) Creatine Kinase 332 U/L (26-192) Troponin I Quantitative 0.045 ng/mL (0-0.055) SX-Otm-D-Type Natriuretic Peptide 99093 pg/mL (0-124) Total Protein 6.5 g/dL (6.4-8.2) Albumin 2.3 g/dL (3.4-5.0) Urine Collection Type Unknown Urine Color Yellow Urine Clarity Clear Urine pH 7.0 Urine Specific Garrison 1.020 Urine Protein >100 mg/dl (NEG-TRACE) Urine Glucose (UA) Neg mg/dL (NEG) Urine Ketones (Stick) Neg mg/dL (NEG) Urine Blood Mod (NEG) Urine Nitrite Neg (NEG) Urine Bilirubin Neg (NEG) Urine Urobilinogen Dipstick 0.2 mg/dL (0.2 mg/dL) Urine Leukocyte Esterase Neg (NEG) Urine RBC 0 /HPF (0-2) Urine WBC Occ /HPF (0-4) Urine Squamous Epithelial Cells Few /LPF Urine Bacteria 0 /HPF (0-FEW) Brief Hospital Course Ms. Montano is a 73 old female who presented with cellulitis Lt leg and ESRDz- missed HD yesterday. Transfer to [facility]- Dr. Torres Discharge Information Condition at Discharge: Improved, Stable Disposition/Orders: D/C to Another Facility Dischare Medications Current Medications Vancomycin HCl 1 gm/Sodium Chloride 250 ml @ 250 mls/hr 1X ONCE IV Last administered on 01/19/19at 01:36; Admin Dose 250 MLS/HR; Start 01/19/19 at 01:00 ; Stop 01/19/19 at 02:30; Status DC Sodium Chloride 250 ml @ As Directed STK-MED ONCE .ROUTE ; Start 01/19/19 at 01 :19; Stop 01/19/19 at 01:20; Status DC Vancomycin HCl (Vancomycin) 1 gm STK-MED ONCE .ROUTE ; Start 01/19/19 at 01:20; Stop 01/19/19 at 01:21; Status DC Active Scripts Active Reported Multi Vitamin Daily (Multivitamin) 1 Each Tablet 1 Tab PO DAILY Vitamin D (Cholecalciferol (Vitamin D3)) 1,000 Unit Capsule 1 Cap PO DAILY [place] 3-6-9 1,200 mg Softgel (Fish Oil/Borage/Flax/Om3,6,9#1) 1,200 Mg Capsule 1 ,200 Mg PO DAILY Aspirin 81 Mg Tab.chew 81 Mg PO DAILY Atorvastatin Calcium 80 Mg Tablet 1 Tab PO HS Levothyroxine Sodium 175 Mcg Tablet 1 Tab PO DAILY Paroxetine Hcl 20 Mg Tablet 1 Tab PO DAILY K-Tab ER (Potassium Chloride) 20 Meq Tablet.er 1 Tab PO TID Fludrocortisone Acetate 0.1 Mg Tablet 1 Tab PO DAILY Metronidazole 500 Mg Tablet 1 Tab PO TID Eliquis (Apixaban) 5 Mg Tablet 0.5 Tab PO BID Phenytoin Sodium Extended 100 Mg Capsule 3 Cap PO DAILYBFRSUP Omeprazole 40 Mg Capsule.dr 1 Cap PO BID Amlodipine Besylate 5 Mg Tablet 1 Tab PO DAILYBFRSUP Dragon Disclaimer This chart was dictated in whole or in part using Voice Recognition software in a busy, high-work load, and often noisy Emergency Department environment. It may contain unintended and wholly unrecognized errors or omissions. DONNELL MERCDEES MD Jan 18, 2019 22:43
[2019-01-19 00:28] LABS: BASO # 0.1 x10^3/uL (0.0-0.2); BASO % 1 % (0-3); EOS % 1 % (0-3); HEMATOCRIT 29.3 % (36.0-47.0); HEMOGLOBIN 9.5 g/dL (12.0-15.5); LYMPH # 0.9 x10^3/uL (1.0-4.8); LYMPH % 12 % (24-48); MEAN CORPUSCULAR HEMOGLOBIN 30 pg (25-35); MEAN CORPUSCULAR HGB CONC 32 g/dL (31-37); MEAN CORPUSCULAR VOLUME 91 fL (79-100); MONO # 1.4 x10^3/uL (0.0-1.1); MONO % 17 % (0-9); NEUT # 5.5 x10^3uL (1.8-7.7); NEUT % 70 % (31-73); PLATELET COUNT 261 x10^3/uL (140-400); RED BLOOD COUNT 3.21 x10^6/uL (3.50-5.40); RED CELL DISTRIBUTION WIDTH 20.5 % (11.5-14.5); WHITE BLOOD COUNT 7.9 x10^3/uL (4.0-11.0)
[2019-01-19 00:38] LABS: ANISOCYTOSIS SLIGHT
--- NOTE | 2019-01-19 00:38 | RAD ---
CLINICAL HISTORY: lle pain, redness, swelling COMPARISON: None available. TECHNIQUE: Ultrasound evaluation of the left lower extremity was performed from the groin to the upper calf with lopez scale, spectral and color doppler evaluation. FINDINGS: The left common femoral vein, and femoral vein, including the saphenous-femoral junction are normal in appearance. Color and spectral Doppler evaluation demonstrates normal spontaneous flow, augmentation and phasicity. The left popliteal vein and visualized calf veins also demonstrate normal compressibility and flow. IMPRESSION: No evidence for DVT in the left lower extremity Electronically signed by: Cedric Trimble MD (01/19/2019 12:35 AM) [facility]
[2019-01-19 00:39] LABS: PLT ESTIMATE ADEQUATE (ADEQUATE)
--- NOTE | 2019-01-19 00:51 | EKG ---
[address] [address] Test Date: 2019-01-18 Test Time: 23:24:50 Pat Name: CHARLIE LINARES Department: Room: Gender: F Warehouse Incentive Selector: Gogo : 1945 Requested By: DONNELL MERCEDES Order Number: [id number] Reading MD: Adarsh Robertson MD Measurements Intervals [place] Rate: 70 P: 23 UT: 196 QRS: 24 QRSD: 102 T: -125 QT: 472 QTc: 513 Interpretive Statements SINUS RHYTHM LVH WITH REPOLARIZATION ABNORMALITY NON-SPECIFIC ST/T CHANGES PROLONGED QT Electronically Signed On 01-30-2019 10:18:49 CDT by Adarsh Robertson MD
[2019-01-19 00:57] LABS: ALBUMIN 2.3 g/dL (3.4-5.0); CALCIUM 8.5 mg/dL (8.5-10.1); CREATININE 2.4 mg/dL (0.6-1.0); GFR 19.8; MAGNESIUM 1.6 mg/dL (1.8-2.4); TOTAL BILIRUBIN 0.4 mg/dL (0.2-1.0); TOTAL PROTEIN 6.5 g/dL (6.4-8.2)
[2019-01-19] MEDS ORDERED: VANCOMYCIN 1 GM in IV NORMAL SALINE 250ML 250 ML IV ONE (01:00)
[2019-01-19 01:13] LABS: DIRECT BILIRUBIN 0.1 mg/dL (0.0-0.2); POTASSIUM 3.5 mmol/L (3.5-5.1)
[2019-01-19] MEDS ORDERED: IV NORMAL SALINE 250ML 250 ML ONE (01:19)
[2019-01-19] MEDS ORDERED: VANCOMYCIN 1 GM VIAL. ONE (01:20)
[2019-01-19 01:24] LABS: SEDIMENTATION RATE 61 (0-25)
[2019-01-19 01:47] LABS: BILIRUBIN,URINE NEG (NEG); CLARITY,URINE CLEAR; COLOR,URINE YELLOW; GLUCOSE,URINE NEG (NEG)
[2019-01-19 01:48] LABS: BACTERIA,URINE 0 /HPF (0-FEW); NITRITE,URINE NEG (NEG); RBC,URINE 0 /HPF (0-2); SQUAMOUS EPITHELIAL CELL,UR FEW /LPF; UROBILINOGEN,URINE 0.2 mg/dL (0.2 mg/dL); WBC,URINE OCC /HPF (0-4)
[2019-01-19 04:50] VITALS: BP 177/76
--- NOTE | 2019-01-19 07:46 | RAD ---
Examination: PORTABLE CHEST 1V History: CHEST PAIN Comparison/Correlation: 12/07/2018 AP view of the chest Findings: Upright portable frontal view chest was obtained. Right internal jugular dialysis catheter terminates overlying the right atrium. Dual-lead left-sided pacemaker is present. Plate and screws involves the proximal left humerus. Heart size is slightly enlarged. Pulmonary vasculature is congested. Improved aeration right lung bases noted. Minimal right costophrenic sulcus consolidation or atelectasis is present. Very small pleural effusions noted. No pneumothorax. Impression: Very small pleural effusions. Minimal right costophrenic sulcus atelectasis or infiltrate. Marked improvement in aeration of the right lung base compared to prior exam. Electronically signed by: Vinnie Thompson MD (01/19/2019 7:43 AM) [facility]
== END 2019-01-19 04:57 | disposition short-term general hospital (02) ==
LOC: ER 22:27
DX: S63.502A Unspecified sprain of left wrist, initial encounter (principal); L03.116 Cellulitis of left lower limb; L03.115 Cellulitis of right lower limb; I73.9 Peripheral vascular disease, unspecified; D64.9 Anemia, unspecified; R70.0 Elevated erythrocyte sedimentation rate; R74.0 Nonspecific elevation of levels of transaminase and lactic acid dehydrogenase [LDH]; R79.89 Other specified abnormal findings of blood chemistry; R79.1 Abnormal coagulation profile; E83.42 Hypomagnesemia; I13.2 Hypertensive heart and chronic kidney disease with heart failure and with stage 5 chronic kidney disease, or end stage renal disease; N18.6 End stage renal disease; I50.9 Heart failure, unspecified; I25.810 Atherosclerosis of coronary artery bypass graft(s) without angina pectoris; Z99.2 Dependence on renal dialysis; Z95.0 Presence of cardiac pacemaker; Z88.5 Allergy status to narcotic agent; W18.39XA Other fall on same level, initial encounter; Y93.89 Activity, other specified; Y92.89 Other specified places as the place of occurrence of the external cause; Y99.8 Other external cause status
CPT/HCPCS: 36415; 71045; 80048; 80076; 81001; 82550; 83735; 83880; 84484; 85025; 85379; 85610; 85651; 85730; 87040; 93005; 93971; 96365; 99285; J3370; J7050

== ENCOUNTER → 2019-02-23 | Outpatient (CLI) | payer MEDICARE ==
--- NOTE | 2019-02-23 16:47 | RAD ---
Chest, PA and Lateral: Technique: PA and lateral views of the chest were obtained. History: Shortness of breath. Comparison: 01/18/2019. Findings: Mild cardiomegaly is unchanged. Diffuse prominent appearing bilateral interstitial lung markings likely moderate congestive changes. Moderate size right pleural effusion is identified with right lung base airspace opacities likely atelectasis or infiltrate. Left-sided cardiac pacer is identified. Right-sided dialysis catheter is identified. IMPRESSION: 1. Moderate congestive changes with moderate size right pleural effusion. Electronically signed by: Surya Ferguson MD (02/23/2019 4:44 PM) [id number]
== END | disposition home or self-care (01) ==
LOC: RAD 14:59
PROVIDERS: ATTEND Internal Medicine Pulmonary Disease
DX: J90 Pleural effusion, not elsewhere classified (principal); I51.7 Cardiomegaly; R09.89 Other specified symptoms and signs involving the circulatory and respiratory systems
CPT/HCPCS: 71046

== ENCOUNTER → 2019-07-24 | Outpatient (CLI) | payer MEDICARE ==
[~2019-07-24] MED LIST changes: +OMEP40CA45 PO; -OMEP40CA5 PO
--- NOTE | 2019-07-24 17:36 | RAD ---
CHEST PA LATERAL History: Shortness of breath, weakness Comparison: June 23, 2019 Findings: 2 views of the chest are submitted. There are again small pleural effusions bilaterally greater on the right. Pericardial cardiac silhouette is similar. Previously seen right internal jugular venous catheter has been removed. There is again left electronic cardiac device. There again has been median sternotomy. There is atherosclerotic calcification near aortic arch. There is some increased left base airspace opacity. Degree of interstitial opacity has decreased. There is again fixation plate and screws of the proximal left humerus. There is no pneumothorax. Impression: 1. There are again small right greater than left pleural effusions, adjacent airspace opacity at the left lung base overall greater which may be due to infiltrate/atelectasis. Electronically signed by: Alo Ying MD (07/24/2019 5:32 PM) [id number]
== END | disposition home or self-care (01) ==
LOC: DXRAD 13:51
PROVIDERS: ATTEND Internal Medicine Pulmonary Disease
DX: J90 Pleural effusion, not elsewhere classified (principal); I70.0 Atherosclerosis of aorta; R53.1 Weakness
CPT/HCPCS: 71046

== ENCOUNTER → 2019-07-25 | Outpatient (CLI) | payer MEDICARE ==
--- NOTE | 2019-07-26 10:42 | RAD ---
CHEST PA LATERAL History: Cough Comparison: 07/24/2019 to the chest x-ray exam. Findings: Frontal and lateral views of chest were obtained. Dual-lead left-sided pacemaker is present. Sternal wires and mediastinal clips are noted. The cardiomediastinal silhouette is normal. Pulmonary congestion with interstitial edema is noted. Small bilateral pleural effusions are present greater on the right with adjacent atelectasis. Plates and screws involving the left shoulder and humerus noted. Stent material is noted at the upper abdominal level. IMPRESSION: Slight improvement in right basilar aeration. Pleural effusions again seen with adjacent atelectasis. Pulmonary vasculature congestion and interstitial edema. Electronically signed by: Vinnie Thompson MD (07/26/2019 10:39 AM) [facility]
== END | disposition home or self-care (01) ==
LOC: DXRAD 11:05
PROVIDERS: ATTEND Internal Medicine Pulmonary Disease
DX: J90 Pleural effusion, not elsewhere classified (principal); J98.11 Atelectasis; R09.89 Other specified symptoms and signs involving the circulatory and respiratory systems; J98.4 Other disorders of lung
CPT/HCPCS: 71046

== ENCOUNTER 2019-08-21 15:13 | Emergency (ER) | payer MEDICARE ==
--- NOTE | 2019-08-21 15:51 | ED.ADGEN ---
Past History Past Medical History: CAD, CHF, Hypertension, Renal Failure, Seizure, Stroke, Other Past Surgical History: Coronary Bypass Surgery, Pacemaker, Other Alcohol Use: None Drug Use: None Adult General Chief Complaint Chief Complaint Cardiac arrest HPI HPI Patient is a 74-year-old dialysis patient who presents from dialysis with witnessed cardiopulmonary arrest. Patient reportedly had been altered and short of breath for the past several days. She was brought to dialysis this afternoon but not given dialysis. Instead, EMS were contacted to transport to the hospital for evaluation. Upon their arrival, the patient became short of breath and decreased loss of level of consciousness. Patient then had agonal respirations followed by a cardiac arrest. CPR was immediately initiated. The patient had a paced rhythm but did not have return of spontaneous circulations. Chest compressions ongoing on ED arrival. EMS unable to establish an IV and receiving oxygen via bag valve mask and assisted ventilation. History is limited given the patient's medical condition. Blood sugar was checked prior to the ED arrival and confirmed to be normal. [] Review of Systems Review of Systems Review symptoms unobtainable All other systems were reviewed and found to be within normal limits, except as documented in this note. Allergies Allergies Allergies Coded Allergies Type Severity Reaction Last Updated Verified codeine Allergy Intermediate 04/01/18 Yes Physical Exam Physical Exam Constitutional: ACS 3, ongoing chest compression, assisted dilation via bag valve mask.. [] HENT: Normocephalic, atraumatic, bilateral external ears normal, oropharynx moist, nose normal. [] Eyes: Pupils unreactive.[] Neck: Supple. [] Cardiovascular: Heart noises.[] Lungs & Thorax: Equal lung sounds bilaterally.[] Abdomen: Bowel sounds normal, soft. [] Skin: Warm, dry. [] Back: No tenderness. [] Extremities: No edema. [] Neurologic: GCS 3. [] EKG EKG [] Radiology/Procedures Radiology/Procedures [Intubation procedure note Indictation: Respiratory failure airway protection Consent: Emergent Medications: None Performing physician: Dr. Randy Cerda Patient was preoxygenated via 100% oxygen by bag valve mask and manual ventilation connected to cardiovascular and pulse oximetry monitors. During a brief positive chest compressions, a #7.5 mm endotracheal tube was cautiously introduced through the vocal cords on first attempt by video assisted laryngoscopy. Tube placement was confirmed by visualization, tube fogging, positive capnometry, symmetric chest wall rise is a breath sounds and absence of noises no epigastrium. Course & Med Decision Making Course & Med Decision Making Pertinent Labs and Imaging studies reviewed. (See chart for details) [Patient with witnessed cardiac arrest in prehospital setting. Aggressive ACLS protocols followed. The patient was intubated with IO placed. Typical ACLS drugs given. However, despite aggressive measures the patient failed to experience return of spontaneous circulation after greater than 30 minutes of ongoing CPR. The decision was then made to discontinue life support attempts and the patient was pronounced at 15:26] Final Impression Final Impression 1. Cardiopulmonary arrest] Dragon Disclaimer Dragon Disclaimer This electronic medical record was generated, in whole or in part, using a voice recognition dictation system. RANDY CERDA DO Aug 21, 2019 15:51
[2019-08-21] MEDS ORDERED: SODIUM BICARB ADULT 8.4% 50 MEQ/50 ML DISP.SYRIN. ONE (16:00)
[2019-08-21] MEDS ORDERED: CALCIUM CHLORIDE 1,000 MG/10 ML VIAL IV ONE (16:00)
[2019-08-21] MEDS ORDERED: EPINEPHrine SYRINGE 1 MG/10 ML SYRINGE ONE (16:00)
== END 2019-08-21 19:44 | disposition expired ==
LOC: ER 15:13
DX: I46.9 Cardiac arrest, cause unspecified (principal); I25.810 Atherosclerosis of coronary artery bypass graft(s) without angina pectoris; I13.0 Hypertensive heart and chronic kidney disease with heart failure and stage 1 through stage 4 chronic kidney disease, or unspecified chronic kidney disease; N18.9 Chronic kidney disease, unspecified; I50.9 Heart failure, unspecified; Z86.73 Personal history of transient ischemic attack (TIA), and cerebral infarction without residual deficits; Z95.0 Presence of cardiac pacemaker; Z88.5 Allergy status to narcotic agent
CPT/HCPCS: 31500; 92950; 99285; J0171